=== PATIENT | male | born 1955 | race Caucasian/White ===

== ENCOUNTER 2024-07-27 13:59 | Inpatient (IN) | payer MEDICARE ==
[2024-07-27 14:32] LABS: VBG PH 7.37 (7.31-7.41)
[2024-07-27 14:39] LABS: Appearance,Urine Clear (Clear); Bacteria,Urine Occasional /hpf; Bilirubin,Urine 1+ (Negative); Blood,Urine Small (Negative); Color,Urine Orange; Glucose,Urine (UA) Negative (Negative); Hyaline Casts,Urine 13 /lpf (0-2); Ketones,Urine Trace (Negative); Leukocyte Esterase,Urine Negative (Negative); Mucus,Urine Rare /hpf; Nitrite,Urine Negative (Negative); Protein,Urine 1+ (Negative); RBC,Urine 7 /hpf (0-5); Specific Gravity,Urine 1.018 (1.001-1.035); WBC,Urine <1 /hpf (0-5)
[2024-07-27 14:41] LABS: Amphetamine Screen,Urine Not Detected (NotDetected); Barbiturate Screen,Urine Not Detected (NotDetected); Benzodiazepines Screen,Urine Not Detected (NotDetected); Cocaine Screen,Urine Not Detected (NotDetected); Methadone Screen, Urine Not Detected (NotDetected); Opiate Screen,Urine Not Detected (NotDetected); Oxycodone Screen, Urine Not Detected (NotDetected); Phencyclidine Screen,Urine Not Detected (NotDetected); Tricyclic Antidepressant,Urine Not Detected (NotDetected); Urn Cannabinoid Scrn Not Detected (NotDetected)
[2024-07-27 14:43] LABS: AST 353 U/L (17-59); African American GFR (CKD) 14 (>60 ml/min/1.73 sqM); Albumin 3.4 g/dL (3.5-5.0); Alcohol <10 mg/dL; Alkaline Phosphatase 92 U/L (38-126); Anion Gap 21 mmol/L; Calcium 9.1 mg/dL (8.4-10.2); Carbon Dioxide 25 mmol/L (22-30); Chloride 93 mmol/L (98-107); Glucose 103 mg/dL (74-99); Non-African American GFR(CKD) 12 (>60 ml/min/1.73 sqM); Potassium 3.8 mmol/L (3.5-5.1); Sodium 139 mmol/L (137-145); Total Bilirubin 9.8 mg/dL (0.2-1.3); Total Protein 5.7 g/dL (6.3-8.2)
[2024-07-27 14:49] LABS: ALT 162 U/L (4-49)
[2024-07-27 14:58] LABS: Lactic Acid, Venous 8.7 mmol/L (0.7-2.0)
[2024-07-27 14:59] LABS: Blood Urea Nitrogen 104 mg/dL (9-20); Creatine Kinase 2243 U/L (55-170)
--- NOTE | 2024-07-27 14:59 | XR ---
EXAMINATION TYPE: XR chest 2V DATE OF EXAM: 07/27/2024 2:46 PM CLINICAL INDICATION: Male, 69 years old with history of altered mental status; PHH COMPARISON: None TECHNIQUE: XR chest 2V Frontal view of the chest. FINDINGS: Lungs/Pleura: No evidence of focal consolidation or pneumothorax. Blunting of the costophrenic angles is present. Pulmonary vascularity: Pulmonary vascular congestion. Heart/mediastinum: Cardiomediastinal silhouette is enlarged. Musculoskeletal: No acute osseous pathology. Other findings: None IMPRESSION: Cardiomegaly, pulmonary vascular congestion and bilateral pleural effusions. Correlate with BNP for c ongestive heart failure. [facility], , 07/27/2024 2:57 PM
[2024-07-27 15:00] LABS: Partial Thromboplastin Time 37.2 sec (22.0-30.0); Prothrombin Time 113.8 sec (10.0-12.5)
--- NOTE | 2024-07-27 15:02 | CT ---
EXAMINATION TYPE: CT brain cspine wo con CT DLP: 1736.2 mGycm, Automated exposure control for dose reduction was used. DATE OF EXAM: 07/27/2024 2:46 PM COMPARISON: None. CLINICAL INDICATION: Male, 69 years old with history of ams; AMS. Found face down in his his house un known for how long, he hasn't been check on in 2wks. TECHNIQUE: Brain: Multiple axial CT images of the brain were obtained without IV contrast. Cspine: Axial CT images from the skull base to the inferior aspect of T2 we obtained without intraven ous contrast. Coronal and sagittal reformatted images were also reviewed. . FINDINGS: Brain: Extra-axial spaces: No abnormal extra-axial fluid collections. Ventricular system: Within normal limits Cerebral parenchyma: No acute intraparenchymal hemorrhage or mass effect. The zuluaga-white junction is well differentiated. Cerebellum: Unremarkable. Mass effect: No evidence of midline shift. Intracranial vasculature: unremarkable Soft tissues: Normal. Calvarium/osseous structures: No depressed skull fracture. Paranasal sinuses and mastoid air cells: Mild scattered mucosal thickening and or secretions. Visualized orbits: Orbital contents are intact. Cervical spine: Fracture: None. Osseous structures: Multilevel degenerative disc disease changes with endplate spurring and disc oste ophyte complex's. Vertebral alignment: Within normal limits. Spinal canal/Neural Foramina: No evidence of significant spinal canal narrowing. No evidence for sign ificant neural foraminal stenosis. Neck soft tissues: Prevertebral soft tissues are within normal limits. Other: The airway is patent. Pleural effusions bilaterally. Anasarca of the soft tissues. IMPRESSION: 1. No acute intracranial process. 2. Nonspecific white matter changes, likely secondary to chronic small vessel ischemic disease. 3. No evidence of cervical spine fracture. 4. Mild to moderate multilevel degenerative disc disease. 5. Evidence of congestive heart failure with anasarca, pulmonary vascular congestion and bilateral p leural effusions. [facility], , 07/27/2024 2:59 PM
[2024-07-27 15:08] LABS: Glucose,Whole Blood 96 mg/dL (70-110)
--- NOTE | 2024-07-27 15:10 | ED ---
Altered Mental Status HPI <LanetteBoone - Last Filed: 07/27/24 20:47> - General Source: EMS Mode of arrival: EMS <Belen Benson - Last Filed: 07/27/24 23:28> - General Chief Complaint: Altered Mental Status Time Seen by Provider: 07/27/24 14:10 - History of Present Illness Initial Comments: 69-year-old male presents emergency department after he was found down at home. His landlord has not seen him in 2 weeks and his neighbor has not seen him in 1 week. When EMS arrived to the house they found him in his bedroom prone on the ground. It appeared that the patient had been there for a significant period of time. Patient is anasarcic. They state that he had some type of food burning on the stove. Patient has very nonsensical responses to questioning. They have no information regarding his medical history. Patient hypoxic When speaking with the patient's sister she reports that he has prostate cancer which is untreated. Also has a history of alcoholism and she is concerned that most recently he may have return to his drinking habits. Patient has 1 son, Cade (Belen Benson) - Related Data Home Medications Medication Instructions Recorded Confirmed Unable To Assess [Unable to Assess] 07/27/24 07/27/24 Allergies Allergy/AdvReac Type Severity Reaction Status Date / Time Unable to Assess Allergy Verified 07/27/24 14:08 Review of Systems ROS Other: All systems not noted in ROS Statement are negative. <Boone Gama - Last Filed: 07/27/24 20:47> ROS Other: All systems not noted in ROS Statement are negative. <Belen Benson - Last Filed: 07/27/24 23:28> ROS Statement: Those systems with pertinent positive or pertinent negative responses have been documented in the HPI. Past Medical History Additional Past Medical History / Comment(s): unable to obtain medical history. Additional Past Surgical History / Comment(s): unable to obtain surgical history Smoking Status: Unknown if ever smoked <Belen Benson - Last Filed: 07/27/24 23:28> General Exam Limitations: altered mental status, physical limitation General appearance: alert, lethargic Head exam: Present: atraumatic, normocephalic, normal inspection Eye exam: Present: scleral icterus ENT exam: Present: mucous membranes dry Neck exam: Present: normal inspection. Absent: tenderness, meningismus, lymphadenopathy Respiratory exam: Present: rales Cardiovascular Exam: Present: tachycardia, irregular rhythm GI/Abdominal exam: Present: distended Extremities exam: Present: other (Anasarcic) Back exam: Present: normal inspection Neurological exam: Present: alert Psychiatric exam: Present: flat affect Skin exam: Present: mottled <Belen Benson - Last Filed: 07/27/24 23:28> Course <Boone Gama - Last Filed: 07/27/24 20:47> Vital Signs 07/27/24 07/27/24 07/27/24 14:09 14:26 15:01 Temperature 96.0 F L Pulse Rate 154 H 149 H Respiratory 18 12 Rate Blood Pressure 130/92 113/68 O2 Sat by Pulse 84 L 84 L Oximetry 07/27/24 07/27/24 07/27/24 15:30 15:45 16:00 Temperature Pulse Rate 168 H 152 H 149 H Respiratory 17 Rate Blood Pressure 112/79 119/96 124/111 O2 Sat by Pulse Oximetry 07/27/24 07/27/24 07/27/24 16:15 16:30 16:45 Temperature Pulse Rate 147 H Respiratory Rate Blood Pressure 113/94 113/94 62/31 O2 Sat by Pulse 93 L Oximetry 07/27/24 07/27/24 07/27/24 17:15 17:30 17:45 Temperature Pulse Rate Respiratory Rate Blood Pressure 115/89 105/88 111/73 O2 Sat by Pulse Oximetry 07/27/24 07/27/24 07/27/24 18:00 18:05 18:15 Temperature 96.0 F L Pulse Rate 137 H 138 H Respiratory 17 16 Rate Blood Pressure 76/59 71/24 101/89 O2 Sat by Pulse Oximetry 07/27/24 07/27/24 07/27/24 18:18 18:21 18:30 Temperature Pulse Rate 128 H 144 H 144 H Respiratory 22 22 15 Rate Blood Pressure 99/73 105/81 97/79 O2 Sat by Pulse 97 97 Oximetry 07/27/24 07/27/24 07/27/24 18:45 19:00 19:41 Temperature Pulse Rate 137 H 151 H 158 H Respiratory 15 15 16 Rate Blood Pressure 110/80 107/73 94/64 O2 Sat by Pulse 95 96 Oximetry 07/27/24 07/27/24 07/27/24 20:10 20:15 20:16 Temperature 97.3 F L 97.3 F L Pulse Rate 126 H 122 H 135 H Respiratory 16 18 18 Rate Blood Pressure 105/80 88/74 102/72 O2 Sat by Pulse Oximetry 07/27/24 07/27/24 07/27/24 20:23 20:35 21:28 Temperature 97.5 F L 97.0 F L Pulse Rate 125 H 135 H Respiratory 16 18 Rate Blood Pressure 97/62 96/81 O2 Sat by Pulse 93 L 92 L Oximetry 07/27/24 07/27/24 07/27/24 22:10 22:33 22:56 Temperature 97.0 F L 98.0 F 97.5 F L Pulse Rate 140 H 124 H 137 H Respiratory 18 16 18 Rate Blood Pressure 103/84 84/67 91/54 O2 Sat by Pulse 92 L Oximetry - Reevaluation(s) Reevaluation #1: 07/27/24 16:15 Patient was endorsed to me by ED physician Dr. Benson (secondary to shift change) with the patient's noncontrast CT chest/abdomen/pelvis still pending. 07/27/24 17:00 Case, H&P, test results and ED management thus far were discussed with Dr. Hill (receptionist scheduler). He asks to reverse the patient's coagulopathy with vitamin K 10 mg IVPB and IV FFP. He also asks to hydrate the patient with a liter bolus of normal saline, then repeat a lactic acid level. He also asks to start the patient on a diltiazem IV drip for rate control of his atrial fibrillation. He asks to call him back once all of these measures have been taken with a status update. He has no further recommendations at this time. 07/27/24 18:03 Patient's brother and [id number] are now in the ED at bedside with the patient. I have updated them on the patient's test results and critical status and have answered all of their questions at this time. 07/27/24 20:30 Patient remains in atrial fibrillation on the hospital monitor, and his heart rate is currently in the 130s. Patient has been started on diltiazem IV drip. Patient's repeat lactate level has improved somewhat and is now 6.2. Repeat lab results and status update were discussed with Dr. Hill (receptionist scheduler) per his request. He agrees with ICU admission at this time. 07/27/24 20:45 Case, H&P, test results, ED management and my discussions with Dr. Hill as above were discussed with STATIONARY ENGINEER Cici Post. She accepts ICU admission. She has no further recommendations at this time. 07/27/24 20:48 Family has been updated about the patient's test results and my discussions as above. They all agree with hospital ICU admission at this time. (Boone Gama) Medical Decision Making - Lab Data Result diagrams: 07/27/24 14:19 07/27/24 19:07 <Boone Gama - Last Filed: 07/27/24 20:47> - Lab Data Result diagrams: 07/27/24 14:19 07/27/24 19:07 <Belen Benson - Last Filed: 07/27/24 23:28> - Medical Decision Making Was patient admitted / discharged? Hospital course, mention meds given and route, prescriptions, significant lab abnormalities, going to OR and other pertinent info. @ -Patient has been treated with IV fluids, IV vitamin K, FFP and started on an IV diltiazem drip in the ED (per Dr. Hill's (receptionist scheduler's) request). Repeat evaluation and labs were discussed with Dr. Hill. He agrees with ICU admission at this time. STATIONARY ENGINEER Cici Post has accepted hospital admission. Patient remains alert and breathing comfortably. Patient's family is aware of the patient's test results and they will agree with hospital ICU admission at this time. Undiagnosed new problem with uncertain prognosis? @ -No Drug Therapy requiring intensive monitoring for toxicity (Heparin, Nitro, Insulin, Cardizem)? @ -No Were any procedures done? @ -No Diagnosis/symptom? @ -Altered mental status, renal insufficiency, liver failure, coagulopathy, multisystem organ failure, fluid overload, CHF, pleural effusions, atrial fibrillation with RVR, rhabdomyolysis Acute, or Chronic, or Acute on Chronic? @ -Default Uncomplicated (without systemic symptoms) or Complicated (systemic symptoms)? @ -Default Side effects of treatment? @ -No Exacerbation, Progression, or Severe Exacerbation? @ -No Poses a threat to life or bodily function? How? (Chest pain, USA, DC, pneumonia, PE, COPD, DKA, ARF, appy, cholecystitis, CVA, Diverticulitis, Homicidal, Suicidal, threat to staff... and all critical care pts) @ -Yes, potentially. (Lanette,Boone) Was pt. sent in by a medical professional or institution (, PA, STATIONARY ENGINEER, urgent care, hospital, or alf...) When possible be specific @ -No Did you speak to anyone other than the patient for history (EMS, parent, family, police, friend...)? What history was obtained from this source @ -Spoke with EMS for history. Also spoke with the sister Did you review nursing and triage notes (agree or disagree)? Why? @ -I reviewed and agree with nursing and triage notes Were old charts reviewed (outside hosp., previous admission, EMS record, old EKG, old radiological studies, urgent care reports/EKG's, alf records)? Report findings @ -No old charts were reviewed Differential Diagnosis (chest pain, altered mental status, abdominal pain women, abdominal pain men, vaginal bleeding, weakness, fever, dyspnea, syncope, headache, dizziness, GI bleed, back pain, seizure, CVA, palpatations, mental health, musculoskeletal)? @ -Differential Altered Mental Status: Hypoglycemia, DKA, hypercapnia, ETOH, overdose, CO poisoning, trauma, myxedema coma, HTN encephalopathy, infection, encephalitis, psychosis, intercranial hemorrhage, hepatic encephalopathy, meningitis, CVA, this is not meant to be an all-inclusive list EKG interpreted by me (3pts min.). @ -Yes and demonstrates A-fib with a rate of 146. QRS 114. QTc of 424. No acute ST segment elevations or depressions X-rays interpreted by me (1pt min.). @ -Yes and demonstrates congestive heart failure CT interpreted by me (1pt min.). @ -Pending at this time U/S interpreted by me (1pt. min.). @ -None done What testing was considered but not performed or refused? (CT, X-rays, U/S, labs)? Why? @ -None What meds were considered but not given or refused? Why? @ -None Did you discuss the management of the patient with other professionals (professionals i.e. Dr., PA, STATIONARY ENGINEER, lab, RT, psych nurse, social work specialist, bell ringer, teacher, airplane first officer, top case assembler)? Give summary @ -Spoke with Dr. Gama will follow-up on the patient's CT report Was smoking cessation discussed for >3mins.? @ -No Was critical care preformed (if so, how long)? @ -Yes, 40 minutes for multiorgan failure Were there social determinants of health that impacted care today? How? ( Homelessness, low income, unemployed, alcoholism, drug addiction, transportation, low edu. Level, literacy, decrease access to med. care, usp, rehab)? @ -No Was there de-escalation of care discussed even if they declined (Discuss DNR or withdrawal of care, Hospice)? DNR status @ -No What co-morbidities impacted this encounter? (DM, HTN, Smoking, COPD, CAD, Cancer, CVA, ARF, Chemo, Hep., AIDS, mental health diagnosis, sleep apnea, morbid obesity)? @ -Alcohol abuse Was patient admitted / discharged? Hospital course, mention meds given and route, prescriptions, significant lab abnormalities, going to OR and other pertinent info. @ -Upon arrival patient seen and evaluated in trauma 2. Thorough history and physical exam was performed. Patient cannot provide much history and therefore I did call family members. IV was established and laboratory studies are conducted. Chest x-ray was performed which is followed by a CT of the chest, abdomen and pelvis. Patient found to be significantly ill with liver, heart and kidney failure. Awaiting CT results at this time. He will be [facility] out [facility]ama [facility] - Lab Data Lab Results 07/27/24 07/27/24 07/27/24 Range/Units 14:19 14:19 14:19 WBC 9.6 (3.8-10.6) k/uL RBC 4.21 L (4.30-5.90) m/uL Hgb 13.1 (13.0-17.5) gm/dL Hct 40.5 (39.0-53.0) % MCV 96.2 (80.0-100.0) fL MCH 31.1 (25.0-35.0) pg MCHC 32.4 (31.0-37.0) g/dL RDW 14.9 (11.5-15.5) % Plt Count 119 L (150-450) k/uL MPV 13.1 Neutrophils % (Manual) 84 % Lymphocytes % (Manual) 12 % Monocytes % (Manual) 4 % Neutrophils # (Manual) 8.06 H (1.3-7.7) k/uL Lymphocytes # (Manual) 1.15 (1.0-4.8) k/uL Monocytes # (Manual) 0.38 (0-1.0) k/uL Nucleated RBCs 0 (0-0) /100 WBC Manual Slide Review Performed Large Platelets Present Hypochromasia Moderate Poikilocytosis (manual Present PT 113.8 H (10.0-12.5) sec INR >10.0 H* (<1.2) APTT 37.2 H (22.0-30.0) sec VBG pH (7.31-7.41) VBG pCO2 (37-51) mmHg VBG HCO3 (24-28) mmol/L Carbon Monoxide, Quant (<10.0) % Sodium (137-145) mmol/L Potassium (3.5-5.1) mmol/L Chloride (98-107) mmol/L Carbon Dioxide (22-30) mmol/L Anion Gap mmol/L BUN (9-20) mg/dL Creatinine (0.66-1.25) mg/dL Est GFR (CKD-EPI)AfAm (>60 ml/min/1.73 sqM) Est GFR (CKD-EPI)NonAf (>60 ml/min/1.73 sqM) Glucose (74-99) mg/dL POC Glucose (mg/dL) (70-110) mg/dL POC Glu Spool Sander ID Lactic Ac Sepsis Rflx Plasma Lactic Acid Jose (0.7-2.0) mmol/L Calcium (8.4-10.2) mg/dL Total Bilirubin (0.2-1.3) mg/dL AST (17-59) U/L ALT (4-49) U/L Alkaline Phosphatase (38-126) U/L Ammonia (<30) umol/L Creatine Kinase (55-170) U/L Troponin I (0.000-0.034) ng/mL NT-Pro-B Natriuret Pep pg/mL Total Protein (6.3-8.2) g/dL Albumin (3.5-5.0) g/dL TSH (0.465-4.680) mIU/L Urine Color [place] Urine Appearance Clear (Clear) Urine pH 5.0 (5.0-8.0) Ur Specific [place] 1.018 (1.001-1.035) Urine Protein 1+ H (Negative) Urine Glucose (UA) Negative (Negative) Urine Ketones Trace H (Negative) Urine Blood Small H (Negative) Urine Nitrite Negative (Negative) Urine Bilirubin 1+ H (Negative) Urine Urobilinogen 3.0 (<2.0) mg/dL Ur Leukocyte Esterase Negative (Negative) Urine RBC 7 H (0-5) /hpf Urine WBC <1 (0-5) /hpf Urine Bacteria Occasional H (None) /hpf Hyaline Casts 13 H (0-2) /lpf Urine Mucus Rare H (None) /hpf Urine Opiates Screen Not Detected (NotDetected) Ur Oxycodone Screen Not Detected (NotDetected) Urine Methadone Screen Not Detected (NotDetected) Ur Barbiturates Screen Not Detected (NotDetected) U Tricyclic Antidepress Not Detected (NotDetected) Ur Phencyclidine Scrn Not Detected (NotDetected) Ur Amphetamines Screen Not Detected (NotDetected) U Methamphetamines Scrn Not Detected (NotDetected) U Benzodiazepines Scrn Not Detected (NotDetected) Urine Cocaine Screen Not Detected (NotDetected) U Marijuana (THC) Screen Not Detected (NotDetected) Serum Alcohol mg/dL Blood Type Blood Type Confirm Blood Type Recheck Bld Type Recheck Status Antibody Screen Transfuse Plasma Spec Expiration Date 07/27/24 07/27/24 07/27/24 Range/Units 14:19 14:19 14:19 WBC (3.8-10.6) k/uL RBC (4.30-5.90) m/uL Hgb (13.0-17.5) gm/dL Hct (39.0-53.0) % MCV (80.0-100.0) fL MCH (25.0-35.0) pg MCHC (31.0-37.0) g/dL RDW (11.5-15.5) % Plt Count (150-450) k/uL MPV Neutrophils % (Manual) % Lymphocytes % (Manual) % Monocytes % (Manual) % Neutrophils # (Manual) (1.3-7.7) k/uL Lymphocytes # (Manual) (1.0-4.8) k/uL Monocytes # (Manual) (0-1.0) k/uL Nucleated RBCs (0-0) /100 WBC Manual Slide Review Large Platelets Hypochromasia Poikilocytosis (manual PT (10.0-12.5) sec INR (<1.2) APTT (22.0-30.0) sec VBG pH (7.31-7.41) VBG pCO2 (37-51) mmHg VBG HCO3 (24-28) mmol/L Carbon Monoxide, Quant (<10.0) % Sodium 139 (137-145) mmol/L Potassium 3.8 (3.5-5.1) mmol/L Chloride 93 L (98-107) mmol/L Carbon Dioxide 25 (22-30) mmol/L Anion Gap 21 mmol/L BUN 104 H* (9-20) mg/dL Creatinine 4.62 H (0.66-1.25) mg/dL Est GFR (CKD-EPI)AfAm 14 (>60 ml/min/1.73 sqM) Est GFR (CKD-EPI)NonAf 12 (>60 ml/min/1.73 sqM) Glucose 103 H (74-99) mg/dL POC Glucose (mg/dL) (70-110) mg/dL POC Glu Spool Sander ID Lactic Ac Sepsis Rflx Plasma Lactic Acid Jose 8.7 H* (0.7-2.0) mmol/L Calcium 9.1 (8.4-10.2) mg/dL Total Bilirubin 9.8 H (0.2-1.3) mg/dL AST 353 H (17-59) U/L ALT 162 H (4-49) U/L Alkaline Phosphatase 92 (38-126) U/L Ammonia <9 (<30) umol/L Creatine Kinase 2243 H* (55-170) U/L Troponin I 0.759 H* (0.000-0.034) ng/mL NT-Pro-B Natriuret Pep 07465 pg/mL Total Protein 5.7 L (6.3-8.2) g/dL Albumin 3.4 L (3.5-5.0) g/dL TSH 4.220 (0.465-4.680) mIU/L Urine Color Urine Appearance (Clear) Urine pH (5.0-8.0) Ur Specific [place] (1.001-1.035) Urine Protein (Negative) Urine Glucose (UA) (Negative) Urine Ketones (Negative) Urine Blood (Negative) Urine Nitrite (Negative) Urine Bilirubin (Negative) Urine Urobilinogen (<2.0) mg/dL Ur Leukocyte Esterase (Negative) Urine RBC (0-5) /hpf Urine WBC (0-5) /hpf Urine Bacteria (None) /hpf Hyaline Casts (0-2) /lpf Urine Mucus (None) /hpf Urine Opiates Screen (NotDetected) Ur Oxycodone Screen (NotDetected) Urine Methadone Screen (NotDetected) Ur Barbiturates Screen (NotDetected) U Tricyclic Antidepress (NotDetected) Ur Phencyclidine Scrn (NotDetected) Ur Amphetamines Screen (NotDetected) U Methamphetamines Scrn (NotDetected) U Benzodiazepines Scrn (NotDetected) Urine Cocaine Screen (NotDetected) U Marijuana (THC) Screen (NotDetected) Serum Alcohol <10 mg/dL Blood Type Blood Type Confirm Blood Type Recheck Bld Type Recheck Status Antibody Screen Transfuse Plasma Spec Expiration Date 07/27/24 07/27/24 07/27/24 Range/Units 14:19 14:19 14:59 WBC (3.8-10.6) k/uL RBC (4.30-5.90) m/uL Hgb (13.0-17.5) gm/dL Hct (39.0-53.0) % MCV (80.0-100.0) fL MCH (25.0-35.0) pg MCHC (31.0-37.0) g/dL RDW (11.5-15.5) % Plt Count (150-450) k/uL MPV Neutrophils % (Manual) % Lymphocytes % (Manual) % Monocytes % (Manual) % Neutrophils # (Manual) (1.3-7.7) k/uL Lymphocytes # (Manual) (1.0-4.8) k/uL Monocytes # (Manual) (0-1.0) k/uL Nucleated RBCs (0-0) /100 WBC Manual Slide Review Large Platelets Hypochromasia Poikilocytosis (manual PT (10.0-12.5) sec INR (<1.2) APTT (22.0-30.0) sec VBG pH 7.37 (7.31-7.41) VBG pCO2 43 (37-51) mmHg VBG HCO3 24 (24-28) mmol/L Carbon Monoxide, Quant 2.6 (<10.0) % Sodium (137-145) mmol/L Potassium (3.5-5.1) mmol/L Chloride (98-107) mmol/L Carbon Dioxide (22-30) mmol/L Anion Gap mmol/L BUN (9-20) mg/dL Creatinine (0.66-1.25) mg/dL Est GFR (CKD-EPI)AfAm (>60 ml/min/1.73 sqM) Est GFR (CKD-EPI)NonAf (>60 ml/min/1.73 sqM) Glucose (74-99) mg/dL POC Glucose (mg/dL) (70-110) mg/dL POC Glu Spool Sander ID Lactic Ac Sepsis Rflx Y Plasma Lactic Acid Jose (0.7-2.0) mmol/L Calcium (8.4-10.2) mg/dL Total Bilirubin (0.2-1.3) mg/dL AST (17-59) U/L ALT (4-49) U/L Alkaline Phosphatase (38-126) U/L Ammonia (<30) umol/L Creatine Kinase (55-170) U/L Troponin I (0.000-0.034) ng/mL NT-Pro-B Natriuret Pep pg/mL Total Protein (6.3-8.2) g/dL Albumin (3.5-5.0) g/dL TSH (0.465-4.680) mIU/L Urine Color Urine Appearance (Clear) Urine pH (5.0-8.0) Ur Specific [place] (1.001-1.035) Urine Protein (Negative) Urine Glucose (UA) (Negative) Urine Ketones (Negative) Urine Blood (Negative) Urine Nitrite (Negative) Urine Bilirubin (Negative) Urine Urobilinogen (<2.0) mg/dL Ur Leukocyte Esterase (Negative) Urine RBC (0-5) /hpf Urine WBC (0-5) /hpf Urine Bacteria (None) /hpf Hyaline Casts (0-2) /lpf Urine Mucus (None) /hpf Urine Opiates Screen (NotDetected) Ur Oxycodone Screen (NotDetected) Urine Methadone Screen (NotDetected) Ur Barbiturates Screen (NotDetected) U Tricyclic Antidepress (NotDetected) Ur Phencyclidine Scrn (NotDetected) Ur Amphetamines Screen (NotDetected) U Methamphetamines Scrn (NotDetected) U Benzodiazepines Scrn (NotDetected) Urine Cocaine Screen (NotDetected) U Marijuana (THC) Screen (NotDetected) Serum Alcohol mg/dL Blood Type Blood Type Confirm Blood Type Recheck Bld Type Recheck Status Antibody Screen Transfuse Plasma Spec Expiration Date 07/27/24 07/27/24 07/27/24 Range/Units 15:00 17:07 17:50 WBC (3.8-10.6) k/uL RBC (4.30-5.90) m/uL Hgb (13.0-17.5) gm/dL Hct (39.0-53.0) % MCV (80.0-100.0) fL MCH (25.0-35.0) pg MCHC (31.0-37.0) g/dL RDW (11.5-15.5) % Plt Count (150-450) k/uL MPV Neutrophils % (Manual) % Lymphocytes % (Manual) % Monocytes % (Manual) % Neutrophils # (Manual) (1.3-7.7) k/uL Lymphocytes # (Manual) (1.0-4.8) k/uL Monocytes # (Manual) (0-1.0) k/uL Nucleated RBCs (0-0) /100 WBC Manual Slide Review Large Platelets Hypochromasia Poikilocytosis (manual PT (10.0-12.5) sec INR (<1.2) APTT (22.0-30.0) sec VBG pH (7.31-7.41) VBG pCO2 (37-51) mmHg VBG HCO3 (24-28) mmol/L Carbon Monoxide, Quant (<10.0) % Sodium (137-145) mmol/L Potassium (3.5-5.1) mmol/L Chloride (98-107) mmol/L Carbon Dioxide (22-30) mmol/L Anion Gap mmol/L BUN (9-20) mg/dL Creatinine (0.66-1.25) mg/dL Est GFR (CKD-EPI)AfAm (>60 ml/min/1.73 sqM) Est GFR (CKD-EPI)NonAf (>60 ml/min/1.73 sqM) Glucose (74-99) mg/dL POC Glucose (mg/dL) 96 (70-110) mg/dL POC Glu Spool Sander ID Fei Valero Lactic Ac Sepsis Rflx Plasma Lactic Acid Jose (0.7-2.0) mmol/L Calcium (8.4-10.2) mg/dL Total Bilirubin (0.2-1.3) mg/dL AST (17-59) U/L ALT (4-49) U/L Alkaline Phosphatase (38-126) U/L Ammonia (<30) umol/L Creatine Kinase (55-170) U/L Troponin I (0.000-0.034) ng/mL NT-Pro-B Natriuret Pep pg/mL Total Protein (6.3-8.2) g/dL Albumin (3.5-5.0) g/dL TSH (0.465-4.680) mIU/L Urine Color Urine Appearance (Clear) Urine pH (5.0-8.0) Ur Specific [place] (1.001-1.035) Urine Protein (Negative) Urine Glucose (UA) (Negative) Urine Ketones (Negative) Urine Blood (Negative) Urine Nitrite (Negative) Urine Bilirubin (Negative) Urine Urobilinogen (<2.0) mg/dL Ur Leukocyte Esterase (Negative) Urine RBC (0-5) /hpf Urine WBC (0-5) /hpf Urine Bacteria (None) /hpf Hyaline Casts (0-2) /lpf Urine Mucus (None) /hpf Urine Opiates Screen (NotDetected) Ur Oxycodone Screen (NotDetected) Urine Methadone Screen (NotDetected) Ur Barbiturates Screen (NotDetected) U Tricyclic Antidepress (NotDetected) Ur Phencyclidine Scrn (NotDetected) Ur Amphetamines Screen (NotDetected) U Methamphetamines Scrn (NotDetected) U Benzodiazepines Scrn (NotDetected) Urine Cocaine Screen (NotDetected) U Marijuana (THC) Screen (NotDetected) Serum Alcohol mg/dL Blood Type O Negative Blood Type Confirm Blood Type Recheck No Previous Record Bld Type Recheck Status CABO Indicated Antibody Screen NEGATIVE Transfuse Plasma 07/27/24 Spec Expiration Date 07/30/2024 - 234907/27/24 07/27/24 07/27/24 Range/Units 17:55 19:07 19:07 WBC (3.8-10.6) k/uL RBC (4.30-5.90) m/uL Hgb (13.0-17.5) gm/dL Hct (39.0-53.0) % MCV (80.0-100.0) fL MCH (25.0-35.0) pg MCHC (31.0-37.0) g/dL RDW (11.5-15.5) % Plt Count (150-450) k/uL MPV Neutrophils % (Manual) % Lymphocytes % (Manual) % Monocytes % (Manual) % Neutrophils # (Manual) (1.3-7.7) k/uL Lymphocytes # (Manual) (1.0-4.8) k/uL Monocytes # (Manual) (0-1.0) k/uL Nucleated RBCs (0-0) /100 WBC Manual Slide Review Large Platelets Hypochromasia Poikilocytosis (manual PT 82.2 H (10.0-12.5) sec INR 8.3 H* (<1.2) APTT 41.3 H (22.0-30.0) sec VBG pH (7.31-7.41) VBG pCO2 (37-51) mmHg VBG HCO3 (24-28) mmol/L Carbon Monoxide, Quant (<10.0) % Sodium (137-145) mmol/L Potassium (3.5-5.1) mmol/L Chloride (98-107) mmol/L Carbon Dioxide (22-30) mmol/L Anion Gap mmol/L BUN (9-20) mg/dL Creatinine (0.66-1.25) mg/dL Est GFR (CKD-EPI)AfAm (>60 ml/min/1.73 sqM) Est GFR (CKD-EPI)NonAf (>60 ml/min/1.73 sqM) Glucose (74-99) mg/dL POC Glucose (mg/dL) (70-110) mg/dL POC Glu Spool Sander ID Lactic Ac Sepsis Rflx Plasma Lactic Acid Jose 6.2 H* (0.7-2.0) mmol/L Calcium (8.4-10.2) mg/dL Total Bilirubin (0.2-1.3) mg/dL AST (17-59) U/L ALT (4-49) U/L Alkaline Phosphatase (38-126) U/L Ammonia (<30) umol/L Creatine Kinase (55-170) U/L Troponin I (0.000-0.034) ng/mL NT-Pro-B Natriuret Pep pg/mL Total Protein (6.3-8.2) g/dL Albumin (3.5-5.0) g/dL TSH (0.465-4.680) mIU/L Urine Color Urine Appearance (Clear) Urine pH (5.0-8.0) Ur Specific [place] (1.001-1.035) Urine Protein (Negative) Urine Glucose (UA) (Negative) Urine Ketones (Negative) Urine Blood (Negative) Urine Nitrite (Negative) Urine Bilirubin (Negative) Urine Urobilinogen (<2.0) mg/dL Ur Leukocyte Esterase (Negative) Urine RBC (0-5) /hpf Urine WBC (0-5) /hpf Urine Bacteria (None) /hpf Hyaline Casts (0-2) /lpf Urine Mucus (None) /hpf Urine Opiates Screen (NotDetected) Ur Oxycodone Screen (NotDetected) Urine Methadone Screen (NotDetected) Ur Barbiturates Screen (NotDetected) U Tricyclic Antidepress (NotDetected) Ur Phencyclidine Scrn (NotDetected) Ur Amphetamines Screen (NotDetected) U Methamphetamines Scrn (NotDetected) U Benzodiazepines Scrn (NotDetected) Urine Cocaine Screen (NotDetected) U Marijuana (THC) Screen (NotDetected) Serum Alcohol mg/dL Blood Type Blood Type Confirm O Negative Blood Type Recheck Bld Type Recheck Status Antibody Screen Transfuse Plasma Spec Expiration Date 07/27/24 07/27/24 07/27/24 Range/Units 19:07 19:07 19:31 WBC (3.8-10.6) k/uL RBC (4.30-5.90) m/uL Hgb (13.0-17.5) gm/dL Hct (39.0-53.0) % MCV (80.0-100.0) fL MCH (25.0-35.0) pg MCHC (31.0-37.0) g/dL RDW (11.5-15.5) % Plt Count (150-450) k/uL MPV Neutrophils % (Manual) % Lymphocytes % (Manual) % Monocytes % (Manual) % Neutrophils # (Manual) (1.3-7.7) k/uL Lymphocytes # (Manual) (1.0-4.8) k/uL Monocytes # (Manual) (0-1.0) k/uL Nucleated RBCs (0-0) /100 WBC Manual Slide Review Large Platelets Hypochromasia Poikilocytosis (manual PT (10.0-12.5) sec INR (<1.2) APTT (22.0-30.0) sec VBG pH (7.31-7.41) VBG pCO2 (37-51) mmHg VBG HCO3 (24-28) mmol/L Carbon Monoxide, Quant (<10.0) % Sodium 140 (137-145) mmol/L Potassium 3.7 (3.5-5.1) mmol/L Chloride 96 L (98-107) mmol/L Carbon Dioxide 27 (22-30) mmol/L Anion Gap 17 mmol/L BUN 109 H* (9-20) mg/dL Creatinine 4.14 H (0.66-1.25) mg/dL Est GFR (CKD-EPI)AfAm 16 (>60 ml/min/1.73 sqM) Est GFR (CKD-EPI)NonAf 14 (>60 ml/min/1.73 sqM) Glucose 108 H (74-99) mg/dL POC Glucose (mg/dL) (70-110) mg/dL POC Glu Spool Sander ID Lactic Ac Sepsis Rflx Y Plasma Lactic Acid Jose (0.7-2.0) mmol/L Calcium 8.6 (8.4-10.2) mg/dL Total Bilirubin 9.1 H (0.2-1.3) mg/dL AST 359 H (17-59) U/L ALT 151 H (4-49) U/L Alkaline Phosphatase 81 (38-126) U/L Ammonia (<30) umol/L Creatine Kinase (55-170) U/L Troponin I 0.967 H* (0.000-0.034) ng/mL NT-Pro-B Natriuret Pep pg/mL Total Protein 5.6 L (6.3-8.2) g/dL Albumin 3.2 L (3.5-5.0) g/dL TSH (0.465-4.680) mIU/L Urine Color Urine Appearance (Clear) Urine pH (5.0-8.0) Ur Specific [place] (1.001-1.035) Urine Protein (Negative) Urine Glucose (UA) (Negative) Urine Ketones (Negative) Urine Blood (Negative) Urine Nitrite (Negative) Urine Bilirubin (Negative) Urine Urobilinogen (<2.0) mg/dL Ur Leukocyte Esterase (Negative) Urine RBC (0-5) /hpf Urine WBC (0-5) /hpf Urine Bacteria (None) /hpf Hyaline Casts (0-2) /lpf Urine Mucus (None) /hpf Urine Opiates Screen (NotDetected) Ur Oxycodone Screen (NotDetected) Urine Methadone Screen (NotDetected) Ur Barbiturates Screen (NotDetected) U Tricyclic Antidepress (NotDetected) Ur Phencyclidine Scrn (NotDetected) Ur Amphetamines Screen (NotDetected) U Methamphetamines Scrn (NotDetected) U Benzodiazepines Scrn (NotDetected) Urine Cocaine Screen (NotDetected) U Marijuana (THC) Screen (NotDetected) Serum Alcohol mg/dL Blood Type Blood Type Confirm Blood Type Recheck Bld Type Recheck Status Antibody Screen Transfuse Plasma Spec Expiration Date - Radiology Data Noncontrast CT brain/cervical spine: 1. No acute intracranial process. 2. Nonspecific white matter changes, likely secondary to chronic small vessel ischemic disease. 3. No evidence of cervical spine fracture 4. Mild to moderate multilevel degenerative disc disease. 5. Evidence of congestive heart failure with anasarca, pulmonary vascular congestion and bilateral pleural effusions. Noncontrast CT chest/abdomen/pelvis: 1. Cardiomegaly, anasarca, bilateral pleural effusions and pulmonary vascular congestion correlate for congestive heart failure. No evidence for acute thoracic or abdominal process. 2. Hepatic steatosis correlate for elevated liver labs secondary to heart failure. (Boone Gama) Critical Care Time Critical Care Time: Yes Total Critical Care Time: 75 <Boone Gama - Last Filed: 07/27/24 20:47> Disposition Is patient prescribed a controlled substance at d/c from ED?: No Time of Disposition: 20:42 <Boone Gama - Last Filed: 07/27/24 20:47> <Belen Benson - Last Filed: 07/27/24 23:28> Clinical Impression: Altered mental status, Fluid overload, Rhabdomyolysis, Liver failure, Coagulopathy, Elevated lactic acid level, Elevated troponin, Atrial fibrillation with RVR, CHF (congestive heart failure), Anasarca, Pleural effusion, Renal insufficiency Disposition: ADMITTED IP TO THIS HOSP Condition: Critical
[2024-07-27 15:14] LABS: NT-Pro-B-Type Natriuretic Pept 34000 pg/mL
[2024-07-27 15:15] LABS: INR >10.0 (<1.2)
[2024-07-27 15:18] LABS: HCT 40.5 % (39.0-53.0); HGB 13.1 gm/dL (13.0-17.5); Hypochromasia Moderate; MCH 31.1 pg (25.0-35.0); MCHC 32.4 g/dL (31.0-37.0); MCV 96.2 fL (80.0-100.0); Mean Platelet Volume 13.1; RBC 4.21 m/uL (4.30-5.90); RDW 14.9 % (11.5-15.5); WBC 9.6 k/uL (3.8-10.6)
[2024-07-27] MEDS: cefTRIAXone IN SWFI 1,000 MG/10 ML SYRINGE IVP STA (15:58)
[2024-07-27 15:59] LABS: Lymphocytes # (M) 1.15 k/uL (1.0-4.8); Monocytes # (M) 0.38 k/uL (0-1.0); Neutrophils # (M) 8.06 k/uL (1.3-7.7); Neutrophils % (M) 84 %; Nucleated Red Blood Cells 0 /100 WBC (0-0); Total Cells Counted 100
[2024-07-27 16:01] LABS: Platelet Count 119 k/uL (150-450); Poikilocytosis (M) Present
[2024-07-27 16:02] LABS: Large Platelets Present
--- NOTE | 2024-07-27 16:43 | CT ---
EXAMINATION TYPE: CT ChestAbdPelvis wo con CT DLP: 1325.8 mGycm, Automated exposure control for dose reduction was used. DATE OF EXAM: 07/27/2024 4:32 PM COMPARISON: None. CLINICAL INDICATION: Male, 69 years old with history of abnormal liver labs, kidney failure; PHH, Abn ormal liver labs, kidney failure Technique: CT ChestAbdPelvis wo con; Multiple axial images were obtained. Two-dimensional coronal and sagittal reconstructions were obtained. Contrast used: mL of , (None if empty) Oral contrast used: without Oral Contrast Findings: CHEST: LUNGS/ PLEURA: Small bilateral pleural effusions. Intralobular septal thickening. AIRWAY: Patent and unremarkable. HEART: The heart is moderately severely large in size. MEDIASTINUM: No gross evidence of adenopathy. VASCULATURE: No aortic aneurysm. MUSCULOSKELETAL: No acute osseous abnormalities. SOFT TISSUES/LYMPH NODES: Unremarkable. LOWER NECK: No significant findings. ABDOMEN: ABDOMEN LIVER: Diffusely hypoattenuating parenchyma. GALLBLADDER AND BILE DUCTS: Unremarkable. PANCREAS: Unremarkable. SPLEEN: Unremarkable. ADRENAL GLANDS: Unremarkable. KIDNEYS AND URETERS: No evidence of hydronephrosis or renal calculus. The ureters are unremarkable. PELVIS BLADDER: Nondistended with Pickens catheter in place. REPRODUCTIVE: Unremarkable. ABDOMEN & PELVIS STOMACH AND BOWEL: No evidence of bowel obstruction. PERITONEUM/RETROPERITONEUM: No evidence of pneumoperitoneum or free fluid. VASCULATURE: No evidence of aortic aneurysm. MUSCULOSKELETAL: No acute osseous abnormalities LYMPH NODES: No gross evidence for lymphadenopathy. SOFT TISSUE/ABDOMINAL WALL: Anasarca of the soft tissues. IMPRESSION: 1. Cardiomegaly, anasarca, bilateral pleural effusions and pulmonary vascular congestion correlate f or congestive heart failure. No evidence for acute thoracic or abdominal process. 2. Hepatic steatosis correlate for elevated liver labs secondary to heart failure. [facility], , 07/27/2024 4:41 PM
[2024-07-27] MEDS: SODIUM CHLORIDE 0.9% 1,000 ML IV ONE (17:18)
[2024-07-27] MEDS: PHYTONADIONE 10 MG in SODIUM CHLORIDE 0.9% 50 ML IVPB STA (18:05)
[2024-07-27] MEDS: DILTIAZEM 125 MG in SODIUM CHLORIDE 0.9% 100 ML IV SCH (18:15)
[2024-07-27] MEDS: SODIUM CHLORIDE 0.9% 1,000 ML IV SCH (18:50)
[2024-07-27 19:32] LABS: ALT 151 U/L (4-49); African American GFR (CKD) 16 (>60 ml/min/1.73 sqM); Albumin 3.2 g/dL (3.5-5.0); Anion Gap 17 mmol/L; Calcium 8.6 mg/dL (8.4-10.2); Carbon Dioxide 27 mmol/L (22-30); Chloride 96 mmol/L (98-107); Glucose 108 mg/dL (74-99); Non-African American GFR(CKD) 14 (>60 ml/min/1.73 sqM); Sodium 140 mmol/L (137-145); Total Bilirubin 9.1 mg/dL (0.2-1.3); Total Protein 5.6 g/dL (6.3-8.2)
[2024-07-27 19:34] LABS: AST 359 U/L (17-59); Alkaline Phosphatase 81 U/L (38-126); Blood Urea Nitrogen 109 mg/dL (9-20); Potassium 3.7 mmol/L (3.5-5.1)
[2024-07-27 19:39] LABS: Partial Thromboplastin Time 41.3 sec (22.0-30.0)
[2024-07-27 20:16] LABS: Prothrombin Time 82.2 sec (10.0-12.5)
[2024-07-27 20:29] LABS: INR 8.3 (<1.2)
[2024-07-27] MEDS ORDERED: NALOXONE 0.4 MG/ML 1 ML VIAL IV PRN (20:42)
[2024-07-27] MEDS: LORazepam 2 MG/ML INJ IV STA (21:40)
[2024-07-27 23:15] LABS: Glucose,Whole Blood 112 mg/dL (70-110)
[2024-07-27] MEDS ORDERED: LORazepam 2 MG/ML INJ IV PRN (23:50)
[2024-07-27] MEDS: SODIUM CHLORIDE 0.9% 500 ML 500 ML IV ONE (23:55)
[2024-07-28] MEDS: LORazepam 2 MG/ML INJ IV PRN ×2 (02:14→10:31)
[2024-07-28 05:48] LABS: Basophils % (A) 0 %; Eosinophils # (A) 0.1 k/uL (0-0.7); Eosinophils % (A) 1 %; HCT 37.7 % (39.0-53.0); HGB 11.7 gm/dL (13.0-17.5); Hypochromasia Moderate; Lymphocytes # (A) 0.9 k/uL (1.0-4.8); Lymphocytes % (A) 8 %; MCH 29.9 pg (25.0-35.0); MCHC 30.9 g/dL (31.0-37.0); MCV 96.7 fL (80.0-100.0); Mean Platelet Volume 12.4; Monocytes # (A) 0.7 k/uL (0-1.0); Monocytes % (A) 6 %; Neutrophils # (A) 9.5 k/uL (1.3-7.7); Neutrophils % (A) 83 %; Platelet Count 119 k/uL (150-450); RDW 14.9 % (11.5-15.5); WBC 11.4 k/uL (3.8-10.6)
[2024-07-28 05:49] LABS: Glucose,Whole Blood 121 mg/dL (70-110)
[2024-07-28 05:57] LABS: Prothrombin Time 29.3 sec (10.0-12.5)
[2024-07-28 06:02] LABS: ALT 164 U/L (4-49); AST 343 U/L (17-59); African American GFR (CKD) 16 (>60 ml/min/1.73 sqM); Albumin 3.2 g/dL (3.5-5.0); Alkaline Phosphatase 91 U/L (38-126); Anion Gap 10 mmol/L; Calcium 8.5 mg/dL (8.4-10.2); Carbon Dioxide 30 mmol/L (22-30); Chloride 100 mmol/L (98-107); Glucose 118 mg/dL (74-99); Non-African American GFR(CKD) 13 (>60 ml/min/1.73 sqM); Potassium 3.2 mmol/L (3.5-5.1); Sodium 140 mmol/L (137-145); Total Bilirubin 9.1 mg/dL (0.2-1.3); Total Protein 5.5 g/dL (6.3-8.2)
[2024-07-28 06:13] LABS: Blood Urea Nitrogen 113 mg/dL (9-20)
[2024-07-28] MEDS: POTASSIUM CHLORIDE 10 MEQ in WATER FOR INJECTION 1 100ML.BAG IVPB SCH (07:08)
--- NOTE | 2024-07-28 07:59 | XR ---
EXAMINATION TYPE: XR chest 1V DATE OF EXAM: 07/28/2024 COMPARISON: 07/27/2024 HISTORY: 69-year-old male CHF TECHNIQUE: Single frontal view of the chest is obtained. FINDINGS: Heart mildly enlarged. Hazy density right mid to lower lung is increased. Mild interstitia l prominence is unchanged. Left base underpenetrated and not well assessed. IMPRESSION: Hazy density throughout the right mid and lower lung has increased. Suspect some increas ing pleural effusion with adjacent atelectasis and/or consolidation. Likely sequela of mild CHF. Left base is underpenetrated and not well assessed. [facility], , 07/28/2024 7:57 AM
--- NOTE | 2024-07-28 09:44 | P.CRDCN ---
History of Present Illness Consult date: 07/28/24 Consult reason: atrial fibrillation, congestive heart failure History of present illness: The patient is a 69-year-old male who was brought to the hospital after being found down in his home and not being seen for at least 1 week, according to ER records. The patient's sister provided a history of EtOH abuse as well as prostate cancer, which he has chose to not treat. He has been confused since arrival, but is able to maintain his airway currently. He is on high flow nasal cannula. DIAGNOSTICS: EKG reveals A-fib with RVR CT of the head and cervical spine shows no acute intracranial process with degenerative disc disease CT chest abdomen pelvis shows cardiomegaly anasarca and bilateral pleural effusions, as well as hepatic steatosis Chest x-ray shows hazy density throughout the right mid and lower lung, suspect increasing pleural effusion with adjacent atelectasis Lab data: WBC 11.4, hemoglobin 11.7, hematocrit 37.7, platelet 119, sodium 140, potassium 3.2, BUN 113, creatinine 4.25, lactic 2.5, AST 343, ALT 164, ALP 91, creatinine kinase 1264, BNP 34,000, troponin 0.96, TSH 4.2 Telemetry: Atrial fibrillation with heart rates in the 120's PAST MEDICAL HISTORY: Prostate cancer, EtOH abuse REVIEW OF SYSTEMS: Unable to complete due to patient's mental status PHYSICAL EXAMINATION: This is a 69-year-old male in no apparent distress at the time of my examination. HEENT: Head is atraumatic, normocephalic. Mucous membranes of the mouth are moist. There is no jugular venous distention. No carotid bruit is heard. CHEST EXAMINATION: Lungs are diminished to auscultation. No chest wall tenderness is noted on palpation or with deep breathing. HEART EXAMINATION: Irregular heart rate. S1, S2 heard. Systolic murmur ABDOMEN: Soft, nontender. Bowel sounds are heard. No organomegaly noted. EXTREMITIES: +2-3 lower extremity pitting edema. Extremities warm. NEUROLOGIC EXAMINATION: Patient is responsive to touch, confused. FINAL ASSESSMENT AND PLAN: Atrial fibrillation with RVR Elevated troponins, in the setting of rhabdomyolysis and atrial fibrillation Elevated BNP, awaiting echocardiogram results Rhabdomyolysis Acute kidney injury Elevated liver enzymes History of EtOH abuse History of prostate cancer PLAN: Continue Cardizem for rate control Patient is poor candidate for anticoagulation Further recommendations to be based upon clinical course. Prognosis is guarded. I am dictating on behalf of Dr Wellington Maria's history/physical and assessment/plan. Past Medical History Additional Past Medical History / Comment(s): unable to obtain medical history. History of Any Multi-Drug Resistant Organisms: None Reported Additional Past Surgical History / Comment(s): unable to obtain surgical history Smoking Status: Unknown if ever smoked Medications and Allergies Home Medications Medication Instructions Recorded Confirmed Type Unable To Assess [Unable to Assess] 07/27/24 07/27/24 History Allergies Allergy/AdvReac Type Severity Reaction Status Date / Time Unable to Assess Allergy Verified 07/27/24 14:08 Physical Exam Vitals: Vital Signs Temp Pulse Pulse Resp BP Pulse Ox 07/28/24 09:06 88 L 07/28/24 07:00 116 H 7 L 98/69 91 L 07/28/24 06:45 126 H 28 H 90/73 89 L 07/28/24 06:30 122 H 24 103/77 88 L 07/28/24 06:15 126 H 28 H 89/76 89 L 07/28/24 06:00 122 H 26 H 103/71 93 L 07/28/24 05:45 131 H 32 H 101/73 89 L 07/28/24 05:30 117 H 12 111/28 90 L 07/28/24 05:15 126 H 7 L 111/86 93 L 07/28/24 05:00 108 H 11 L 93/67 92 L 07/28/24 04:45 116 H 17 85/60 89 L 07/28/24 04:30 122 H 17 110/86 89 L 07/28/24 04:15 130 H 19 98/79 90 L 07/28/24 04:00 97.4 F L 129 H 116 H 36 H 93/70 93 L 07/28/24 03:45 125 H 12 85/75 91 L 07/28/24 03:30 141 H 24 91/81 90 L 07/28/24 03:15 125 H 12 94/83 93 L 07/28/24 03:00 129 H 18 109/93 90 L 07/28/24 02:45 152 H 18 96/70 07/28/24 02:30 135 H 24 93 L 07/28/24 02:15 111 H 21 92/25 90 L 07/28/24 02:00 124 H 18 108/88 90 L 07/28/24 01:45 131 H 7 L 120/88 90 L 07/28/24 01:40 126 H 20 120/88 89 L 07/28/24 01:30 137 H 21 129/89 07/28/24 01:15 126 H 8 L 96/75 90 L 07/28/24 01:00 137 H 8 L 87/59 90 L 07/28/24 00:45 134 H 20 99/78 88 L 07/28/24 00:30 140 H 8 L 97/66 91 L 07/28/24 00:15 129 H 21 101/66 93 L 07/28/24 00:03 138 H 24 101/66 93 L 07/28/24 00:00 147 H 129 H 18 99/64 93 L 07/27/24 23:50 126 H 10 L 99/64 95 07/27/24 23:30 97.8 F 133 H 6 L 105/73 96 07/27/24 23:15 141 H 9 L 91 L 07/27/24 23:00 130 H 26 H 91/54 91 L 07/27/24 22:56 97.5 F L 137 H 18 91/54 07/27/24 22:45 120 H 21 95/69 91 L 07/27/24 22:33 98.0 F 124 H 16 84/67 07/27/24 22:30 137 H 18 95/64 90 L 07/27/24 22:15 124 H 20 98/76 92 L 07/27/24 22:10 97.0 F L 140 H 18 103/84 92 L 07/27/24 22:00 26 H 85/57 93 L 07/27/24 21:45 138 H 12 112/83 91 L 07/27/24 21:30 129 H 11 L 88/63 88 L 07/27/24 21:28 97.0 F L 135 H 18 96/81 92 L 07/27/24 21:15 140 H 15 94/84 81 L 07/27/24 21:00 133 H 17 80/62 83 L 07/27/24 20:45 138 H 17 94/58 87 L 07/27/24 20:35 97.5 F L 125 H 16 97/62 07/27/24 20:30 137 H 19 102/72 89 L 07/27/24 20:23 93 L 07/27/24 20:16 135 H 18 102/72 07/27/24 20:15 97.3 F L 134 H 15 102/72 07/27/24 20:10 97.3 F L 126 H 16 105/80 07/27/24 20:00 135 H 17 95/64 07/27/24 19:45 165 H 19 70/24 83 L 07/27/24 19:41 158 H 16 94/64 07/27/24 19:30 140 H 11 L 93/79 07/27/24 19:15 149 H 15 94/68 07/27/24 19:00 151 H 15 107/73 96 07/27/24 18:45 137 H 15 110/80 95 07/27/24 18:30 144 H 15 97/79 97 07/27/24 18:21 144 H 22 105/81 07/27/24 18:18 128 H 22 99/73 97 07/27/24 18:15 138 H 16 101/89 07/27/24 18:05 71/24 07/27/24 18:00 96.0 F L 137 H 17 76/59 07/27/24 17:45 111/73 07/27/24 17:30 105/88 07/27/24 17:15 115/89 07/27/24 16:45 147 H 62/31 93 L 07/27/24 16:30 113/94 07/27/24 16:15 113/94 07/27/24 16:00 149 H 124/111 07/27/24 15:45 152 H 119/96 07/27/24 15:30 168 H 17 112/79 07/27/24 15:01 149 H 12 113/68 84 L 07/27/24 14:26 96.0 F L 07/27/24 14:09 154 H 18 130/92 84 L Intake and Output 07/27/24 07/28/24 07/28/24 22:59 06:59 14:59 Intake Total 231.75 1515.167 100 Output Total 305 15 Balance 231.75 1210.167 85 Intake: Intake, IV Titration 6.75 1296.167 100 Amount Diltiazem 125 mg In 6.75 96.167 Sodium Chloride 0.9% 100 ml @ 5 MG/HR 5 mls/hr IV .Q24H [facility] Rx#:[id number] Sodium Chloride 0.9% 1, 700 100 000 ml @ 100 mls/hr IV . Q10H [facility] Rx#:[id number] Sodium Chloride 0.9% 500 500 ml 500 ml @ 999 mls/hr IV .Q31M ONE Rx#:[id number] Blood Product 225 219 Ffp 24 Pher Acda Cnt1 225 Unit [id number] Ffp 24 Pher Acda Cnt1 0 219 Unit [id number] Output: Urine 305 15 Other: Voiding Method Indwelling Catheter Weight 109.6 kg Results 07/28/24 05:29 07/28/24 05:29 Cardiac Enzymes 07/27/24 07/27/24 07/27/24 Range/Units 14:19 14:19 19:07 AST 353 H (17-59) U/L Troponin I 0.759 H* 0.967 H* (0.000-0.034) ng/mL 07/27/24 07/28/24 Range/Units 19:07 05:29 AST 359 H 343 H (17-59) U/L Troponin I (0.000-0.034) ng/mL Coagulation 07/27/24 07/27/24 07/28/24 Range/Units 14:19 19:07 05:29 PT 113.8 H 82.2 H 29.3 H (10.0-12.5) sec APTT 37.2 H 41.3 H (22.0-30.0) sec CBC 07/27/24 07/28/24 Range/Units 14:19 05:29 WBC 9.6 11.4 H (3.8-10.6) k/uL RBC 4.21 L 3.90 L (4.30-5.90) m/uL Hgb 13.1 11.7 L (13.0-17.5) gm/dL Hct 40.5 37.7 L (39.0-53.0) % Plt Count 119 L 119 L (150-450) k/uL Comprehensive Metabolic Panel 07/27/24 07/27/24 07/28/24 Range/Units 14:19 19:07 05:29 Sodium 139 140 140 (137-145) mmol/L Potassium 3.8 3.7 3.2 L (3.5-5.1) mmol/L Chloride 93 L 96 L 100 (98-107) mmol/L Carbon Dioxide 25 27 30 (22-30) mmol/L BUN 104 H* 109 H* 113 H* (9-20) mg/dL Creatinine 4.62 H 4.14 H 4.25 H (0.66-1.25) mg/dL Glucose 103 H 108 H 118 H (74-99) mg/dL Calcium 9.1 8.6 8.5 (8.4-10.2) mg/dL AST 353 H 359 H 343 H (17-59) U/L ALT 162 H 151 H 164 H (4-49) U/L Alkaline Phosphatase 92 81 91 (38-126) U/L Total Protein 5.7 L 5.6 L 5.5 L (6.3-8.2) g/dL Albumin 3.4 L 3.2 L 3.2 L (3.5-5.0) g/dL Current Medications Generic Name Dose Route Start Last Admin Trade Name Freq PRN Reason Stop Dose Admin Diltiazem HCl 125 mg/ Sodium 125 mls @ 5 mls/hr 07/27/24 17:15 07/28/24 05:13 Chloride IV 10 mg/hr .Q24H HERB 10 mls/hr Administration 5 MG/HR Sodium Chloride 1,000 mls @ 100 mls/hr 07/27/24 18:45 07/28/24 06:57 Saline 0.9% IV Not Given .Q10H HERB Potassium Chloride 10 meq/ IV 100 mls @ 100 mls/hr 07/28/24 08:00 07/28/24 08:31 Solution IVPB 07/28/24 09:59 100 mls/hr Q1H HERB Administration Lorazepam 1 mg 07/27/24 23:50 Lorazepam 2 Mg/Ml Inj IV Q1HR PRN CIWA 10 to 15 Lorazepam 1 mg 07/27/24 23:50 07/28/24 02:14 Lorazepam 2 Mg/Ml Inj IV 1 mg Q2HR PRN Administration CIWA 8 or 9 Lorazepam 2 mg 07/27/24 23:50 Lorazepam 2 Mg/Ml Inj IV 07/29/24 23:51 Q10M PRN CIWA 16 or higher Naloxone HCl 0.2 mg 07/27/24 20:42 Naloxone 0.4 Mg/Ml 1 Ml Vial IV Q2M PRN Opioid Reversal Intake and Output 07/27/24 07/28/24 07/28/24 22:59 06:59 14:59 Intake Total 231.75 1515.167 100 Output Total 305 15 Balance 231.75 1210.167 85 Intake: Intake, IV Titration 6.75 1296.167 100 Amount Diltiazem 125 mg In 6.75 96.167 Sodium Chloride 0.9% 100 ml @ 5 MG/HR 5 mls/hr IV .Q24H [facility] Rx#:[id number] Sodium Chloride 0.9% 1, 700 100 000 ml @ 100 mls/hr IV . Q10H [facility] Rx#:[id number] Sodium Chloride 0.9% 500 500 ml 500 ml @ 999 mls/hr IV .Q31M ONE Rx#:[id number] Blood Product 225 219 Ffp 24 Pher Acda Cnt1 225 Unit [id number] Ffp 24 Pher Acda Cnt1 0 219 Unit [id number] Output: Urine 305 15 Other: Voiding Method Indwelling Catheter Weight 109.6 kg 07/28/24 05:29 07/28/24 05:29
[2024-07-28] MEDS: NOREPINEPHRINE 4 MG in SODIUM CHLORIDE 0.9% 250 ML IV SCH (10:02)
[2024-07-28] MEDS: DEXMEDETOMIDINE/0.9% NACL(PMX) 400 MCG in EMPTY BAG 1 BAG IV SCH (10:03)
[2024-07-28] MEDS: FUROSEMIDE 10 MG/ML 10 ML VIAL IV ONE (10:08)
--- NOTE | 2024-07-28 10:23 | P.NPCON ---
History of Present Illness - Reason for Consult acute renal failure - History of Present Illness Reason for consultation: Acute kidney injury History of present illness: Patient is a 69-year-old male seen in renal consultation for acute kidney injury. Patient is a poor historian. Family present at bedside. It is noted patient came to the hospital after he was found down at home of an unknown duration. Creatinine was 4.62 on admission and is 4.25 today. Patient did receive 2 L of fluid bolus and is currently maintained on normal saline at 100 cc an hour. CK level was 2243 on admission and is 1264 today. Imaging showed no hydronephrosis but was suggestive of fluid overload state. No history of diabetes. No history of coronary artery disease. 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 Patient is hypotensive and Levophed will be initiated. He will also be placed on a BiPAP. No home meds noted. Currently on Cardizem drip for A-fib with RVR. Vital signs -in A-fib. Hypotensive. No acute distress. HEENT: Head exam is unremarkable. On high flow nasal cannula. LUNGS: Scattered rhonchi. HEART: Irregular rate and rhythm. ABDOMEN: No distention. EXTREMITITES: 2+ edema. Past Medical History Additional Past Medical History / Comment(s): unable to obtain medical history. History of Any Multi-Drug Resistant Organisms: None Reported Additional Past Surgical History / Comment(s): unable to obtain surgical history Smoking Status: Unknown if ever smoked Medications and Allergies Home Medications Medication Instructions Recorded Confirmed Type Unable To Assess [Unable to Assess] 07/27/24 07/27/24 History Allergies Allergy/AdvReac Type Severity Reaction Status Date / Time Unable to Assess Allergy Verified 07/27/24 14:08 Physical Exam Vitals: Vital Signs Temp Pulse Pulse Resp BP Pulse Ox FiO2 07/28/24 09:46 100 07/28/24 09:06 88 L 07/28/24 07:00 116 H 7 L 98/69 91 L 07/28/24 06:45 126 H 28 H 90/73 89 L 07/28/24 06:30 122 H 24 103/77 88 L 07/28/24 06:15 126 H 28 H 89/76 89 L 07/28/24 06:00 122 H 26 H 103/71 93 L 07/28/24 05:45 131 H 32 H 101/73 89 L 07/28/24 05:30 117 H 12 111/28 90 L 07/28/24 05:15 126 H 7 L 111/86 93 L 07/28/24 05:00 108 H 11 L 93/67 92 L 07/28/24 04:45 116 H 17 85/60 89 L 07/28/24 04:30 122 H 17 110/86 89 L 07/28/24 04:15 130 H 19 98/79 90 L 07/28/24 04:00 97.4 F L 129 H 116 H 36 H 93/70 93 L 07/28/24 03:45 125 H 12 85/75 91 L 07/28/24 03:30 141 H 24 91/81 90 L 07/28/24 03:15 125 H 12 94/83 93 L 07/28/24 03:00 129 H 18 109/93 90 L 07/28/24 02:45 152 H 18 96/70 07/28/24 02:30 135 H 24 93 L 07/28/24 02:15 111 H 21 92/25 90 L 07/28/24 02:00 124 H 18 108/88 90 L 07/28/24 01:45 131 H 7 L 120/88 90 L 07/28/24 01:40 126 H 20 120/88 89 L 07/28/24 01:30 137 H 21 129/89 07/28/24 01:15 126 H 8 L 96/75 90 L 07/28/24 01:00 137 H 8 L 87/59 90 L 07/28/24 00:45 134 H 20 99/78 88 L 07/28/24 00:30 140 H 8 L 97/66 91 L 07/28/24 00:15 129 H 21 101/66 93 L 07/28/24 00:03 138 H 24 101/66 93 L 07/28/24 00:00 147 H 129 H 18 99/64 93 L 07/27/24 23:50 126 H 10 L 99/64 95 07/27/24 23:30 97.8 F 133 H 6 L 105/73 96 07/27/24 23:15 141 H 9 L 91 L 07/27/24 23:00 130 H 26 H 91/54 91 L 07/27/24 22:56 97.5 F L 137 H 18 91/54 07/27/24 22:45 120 H 21 95/69 91 L 07/27/24 22:33 98.0 F 124 H 16 84/67 07/27/24 22:30 137 H 18 95/64 90 L 07/27/24 22:15 124 H 20 98/76 92 L 07/27/24 22:10 97.0 F L 140 H 18 103/84 92 L 07/27/24 22:00 26 H 85/57 93 L 07/27/24 21:45 138 H 12 112/83 91 L 07/27/24 21:30 129 H 11 L 88/63 88 L 07/27/24 21:28 97.0 F L 135 H 18 96/81 92 L 07/27/24 21:15 140 H 15 94/84 81 L 07/27/24 21:00 133 H 17 80/62 83 L 07/27/24 20:45 138 H 17 94/58 87 L 07/27/24 20:35 97.5 F L 125 H 16 97/62 07/27/24 20:30 137 H 19 102/72 89 L 07/27/24 20:23 93 L 07/27/24 20:16 135 H 18 102/72 07/27/24 20:15 97.3 F L 134 H 15 102/72 07/27/24 20:10 97.3 F L 126 H 16 105/80 07/27/24 20:00 135 H 17 95/64 07/27/24 19:45 165 H 19 70/24 83 L 07/27/24 19:41 158 H 16 94/64 07/27/24 19:30 140 H 11 L 93/79 07/27/24 19:15 149 H 15 94/68 07/27/24 19:00 151 H 15 107/73 96 07/27/24 18:45 137 H 15 110/80 95 07/27/24 18:30 144 H 15 97/79 97 07/27/24 18:21 144 H 22 105/81 07/27/24 18:18 128 H 22 99/73 97 07/27/24 18:15 138 H 16 101/89 07/27/24 18:05 71/24 07/27/24 18:00 96.0 F L 137 H 17 76/59 07/27/24 17:45 111/73 07/27/24 17:30 105/88 07/27/24 17:15 115/89 07/27/24 16:45 147 H 62/31 93 L 07/27/24 16:30 113/94 07/27/24 16:15 113/94 07/27/24 16:00 149 H 124/111 07/27/24 15:45 152 H 119/96 07/27/24 15:30 168 H 17 112/79 07/27/24 15:01 149 H 12 113/68 84 L 07/27/24 14:26 96.0 F L 07/27/24 14:09 154 H 18 130/92 84 L Intake and Output 07/27/24 07/28/24 07/28/24 22:59 06:59 14:59 Intake Total 231.75 1515.167 100 Output Total 305 15 Balance 231.75 1210.167 85 Intake: Intake, IV Titration 6.75 1296.167 100 Amount Diltiazem 125 mg In 6.75 96.167 Sodium Chloride 0.9% 100 ml @ 5 MG/HR 5 mls/hr IV .Q24H [facility] Rx#:[id number] Sodium Chloride 0.9% 1, 700 100 000 ml @ 100 mls/hr IV . Q10H [facility] Rx#:[id number] Sodium Chloride 0.9% 500 500 ml 500 ml @ 999 mls/hr IV .Q31M ONE Rx#:[id number] Blood Product 225 219 Ffp 24 Pher Acda Cnt1 225 Unit [id number] Ffp 24 Pher Acda Cnt1 0 219 Unit [id number] Output: Urine 305 15 Other: Voiding Method Indwelling Catheter Weight 109.6 kg Results - Lab Results Most recent lab results Calcium 8.5 mg/dL (8.4-10.2) 07/28/24 05:29 07/28/24 05:29 07/28/24 05:29 Assessment and Plan Plan: Plan: 1. Acute kidney injury secondary to hemodynamic ATN. Creatinine 4.6 on admission and is 4.25 today. Unknown baseline renal function. No hydronephrosis noted on imaging. 2. A-fib with RVR maintained on Cardizem drip. 3. Volume overload. 4. Acute on chronic systolic CHF ejection fraction of 20%. 5. Hypokalemia from poor intake. 6. Mild rhabdomyolysis due to fall/immobility. Improved. 7. Acute hypoxic respiratory failure secondary to volume overload. Plan: Levophed will be initiated to maintain adequate MAP. Start Lasix drip at 5 cc an hour. Consider dobutamine. Defer to cardiology. Wean FiO2. Continue to monitor renal function and urine output. Potassium replaced. Level will be repeated this afternoon. Avoid nephrotoxins. Thank you for the consultation. I will continue to follow the patient with you during his hospital stay.
[2024-07-28] MEDS: FUROSEMIDE 100 MG in SODIUM CHLORIDE 0.9% 90 ML IV SCH ×2 (10:47→21:26)
[2024-07-28] MEDS: THIAMINE 100 MG/ML 2 ML VIAL IVP SCH (10:58)
--- NOTE | 2024-07-28 11:38 | P.CNPUL ---
History of Present Illness Consult date: 07/28/24 Requesting physician: Fabiola Felix Reason for consult: dyspnea, other (Altered mental status) Chief complaint: Altered mental status History of present illness: This is a 69-year-old white male with history of alcoholism, lives at home by himself, patient presented to the ER yesterday after he was found unresponsive on the floor, and he was discovered by his neighbor. His unresponsiveness is of unknown duration, apparently his neighbor saw him last a week prior. Patient was found on the floor, was noted to be quite edematous, and apparently there was food burning on the stove. Patient could not responD to any questions. And his sister was at bedside all she knows is the patient has been diagnosed with prostate cancer and untreated. She also told me that he has history of alcoholism. Patient was admitted to the ICU, and he was noted to be hypotensive he was also noted to have ascites, pulmonary edema based on chest x-ray, he was also noted to have severe LV dysfunction with ejection fraction of 20%, his labs showed relatively normal CBC, platelets are 1 19,000's, INR was extremely elevated received fresh frozen plasma and vitamin K, last INR is 3 his bicarb is 13 BUN is 113 creatinine 4.25. CPK was also elevated 1264. Her enzymes elevated with AST of 343 and ALT of 164 patient is obtunded, restless, agitated, hence I have recommended starting the patient on Precedex, I also recommended pressors in the form of norepinephrine, may add vasopressin may also add dobutam ine. Review of Systems ROS unobtainable: due to mental status Past Medical History Additional Past Medical History / Comment(s): unable to obtain medical history. History of Any Multi-Drug Resistant Organisms: None Reported Additional Past Surgical History / Comment(s): unable to obtain surgical history Smoking Status: Unknown if ever smoked Medications and Allergies Home Medications Medication Instructions Recorded Confirmed Type Unable To Assess [Unable to Assess] 07/27/24 07/27/24 History Allergies Allergy/AdvReac Type Severity Reaction Status Date / Time Unable to Assess Allergy Verified 07/27/24 14:08 Physical Exam Vitals: Vital Signs Temp Pulse Pulse Resp BP Pulse Ox FiO2 07/28/24 10:56 97.7 F 121 H 11 L 83/58 97 07/28/24 09:46 100 07/28/24 09:06 88 L 10/21/24 07:00 116 H 7 L 98/69 91 L 07/28/24 06:45 126 H 28 H 90/73 89 L 07/28/24 06:30 122 H 24 103/77 88 L 07/28/24 06:15 126 H 28 H 89/76 89 L 07/28/24 06:00 122 H 26 H 103/71 93 L 07/28/24 05:45 131 H 32 H 101/73 89 L 07/28/24 05:30 117 H 12 111/28 90 L 07/28/24 05:15 126 H 7 L 111/86 93 L 07/28/24 05:00 108 H 11 L 93/67 92 L 07/28/24 04:45 116 H 17 85/60 89 L 07/28/24 04:30 122 H 17 110/86 89 L 07/28/24 04:15 130 H 19 98/79 90 L 07/28/24 04:00 97.4 F L 129 H 116 H 36 H 93/70 93 L 07/28/24 03:45 125 H 12 85/75 91 L 07/28/24 03:30 141 H 24 91/81 90 L 07/28/24 03:15 125 H 12 94/83 93 L 07/28/24 03:00 129 H 18 109/93 90 L 07/28/24 02:45 152 H 18 96/70 07/28/24 02:30 135 H 24 93 L 07/28/24 02:15 111 H 21 92/25 90 L 07/28/24 02:00 124 H 18 108/88 90 L 07/28/24 01:45 131 H 7 L 120/88 90 L 07/28/24 01:40 126 H 20 120/88 89 L 07/28/24 01:30 137 H 21 129/89 07/28/24 01:15 126 H 8 L 96/75 90 L 07/28/24 01:00 137 H 8 L 87/59 90 L 07/28/24 00:45 134 H 20 99/78 88 L 07/28/24 00:30 140 H 8 L 97/66 91 L 07/28/24 00:15 129 H 21 101/66 93 L 07/28/24 00:03 138 H 24 101/66 93 L 07/28/24 00:00 147 H 129 H 18 99/64 93 L 07/27/24 23:50 126 H 10 L 99/64 95 07/27/24 23:30 97.8 F 133 H 6 L 105/73 96 07/27/24 23:15 141 H 9 L 91 L 07/27/24 23:00 130 H 26 H 91/54 91 L 07/27/24 22:56 97.5 F L 137 H 18 91/54 07/27/24 22:45 120 H 21 95/69 91 L 07/27/24 22:33 98.0 F 124 H 16 84/67 07/27/24 22:30 137 H 18 95/64 90 L 07/27/24 22:15 124 H 20 98/76 92 L 07/27/24 22:10 97.0 F L 140 H 18 103/84 92 L 07/27/24 22:00 26 H 85/57 93 L 07/27/24 21:45 138 H 12 112/83 91 L 07/27/24 21:30 129 H 11 L 88/63 88 L 07/27/24 21:28 97.0 F L 135 H 18 96/81 92 L 07/27/24 21:15 140 H 15 94/84 81 L 07/27/24 21:00 133 H 17 80/62 83 L 07/27/24 20:45 138 H 17 94/58 87 L 07/27/24 20:35 97.5 F L 125 H 16 97/62 07/27/24 20:30 137 H 19 102/72 89 L 07/27/24 20:23 93 L 07/27/24 20:16 135 H 18 102/72 07/27/24 20:15 97.3 F L 134 H 15 102/72 07/27/24 20:10 97.3 F L 126 H 16 105/80 07/27/24 20:00 135 H 17 95/64 07/27/24 19:45 165 H 19 70/24 83 L 07/27/24 19:41 158 H 16 94/64 07/27/24 19:30 140 H 11 L 93/79 07/27/24 19:15 149 H 15 94/68 07/27/24 19:00 151 H 15 107/73 96 07/27/24 18:45 137 H 15 110/80 95 10/20/24 18:30 144 H 15 97/79 97 07/27/24 18:21 144 H 22 105/81 07/27/24 18:18 128 H 22 99/73 97 07/27/24 18:15 138 H 16 101/89 07/27/24 18:05 71/24 07/27/24 18:00 96.0 F L 137 H 17 76/59 07/27/24 17:45 111/73 07/27/24 17:30 105/88 07/27/24 17:15 115/89 07/27/24 16:45 147 H 62/31 93 L 07/27/24 16:30 113/94 07/27/24 16:15 113/94 07/27/24 16:00 149 H 124/111 07/27/24 15:45 152 H 119/96 07/27/24 15:30 168 H 17 112/79 07/27/24 15:01 149 H 12 113/68 84 L 07/27/24 14:26 96.0 F L 07/27/24 14:09 154 H 18 130/92 84 L Intake and Output 07/27/24 07/28/24 07/28/24 22:59 06:59 14:59 Intake Total 231.75 1515.167 118.592 Output Total 305 15 Balance 231.75 1210.167 103.592 Intake: Intake, IV Titration 6.75 1296.167 118.592 Amount Dexmedetomidine/0.9% NaCl 6.622 (Pmx) 400 mcg In Empty Bag 1 bag @ 0.2 MCG/KG/HR 5.48 mls/hr IV .[id number] HERB Rx#:[id number] Diltiazem 125 mg In 6.75 96.167 Sodium Chloride 0.9% 100 ml @ 5 MG/HR 5 mls/hr IV .Q24H HERB Rx#:[id number] Norepinephrine 4 mg In 11.970 Sodium Chloride 0.9% 250 ml @ 0.03 MCG/KG/MIN 12. 527 mls/hr IV .[id number] HERB Rx#:[id number] Sodium Chloride 0.9% 1, 700 100 000 ml @ 100 mls/hr IV . Q10H HERB Rx#:[id number] Sodium Chloride 0.9% 500 500 ml 500 ml @ 999 mls/hr IV .Q31M ONE Rx#:[id number] Blood Product 225 219 0 Ffp 24 Pher Acda Unit 0 [id number] Ffp 24 Pher Acda Cnt1 225 Unit [id number] Ffp 24 Pher Acda Cnt1 0 219 Unit [id number] Output: Urine 305 15 Other: Voiding Method Indwelling Catheter Weight 109.6 kg 109.6 kg Physical exam: General: Reveals 69-year-old white male restless, agitated, unable to place on BiPAP, keeps moving the mask off. On high flow nasal cannula at 15 L/min Head: Atraumatic, normocephalic EENT: Dry mucous membranes positive icterus. No neck masses no JVD Pulmonary: Diminished breath sound bilaterally no crackles rhonchi or wheezes HEART EXAMINATION: Irregular irregular rhythm, 2/6 systolic murmur throughout the precordium ABDOMEN: Positive ascites soft, nontender. Bowel sounds are heard. No organomegaly noted. EXTREMITIES: 3+ bipedal edema with diminished distal pulses bilaterally. NEUROLOGIC EXAMINATION: Obtunded, wakes up to painful stimuli gets agitated and restless, no purposeful movement. Psychiatric: Could not assess, patient is obtunded. Results - Laboratory Findings CBC and BMP: 07/28/24 05:29 07/28/24 05:29 PT/INR, D-dimer PT 29.3 sec (10.0-12.5) H 07/28/24 05:29 INR 3.0 (<1.2) H 07/28/24 05:29 Abnormal lab findings: Abnormal Labs 07/27/24 07/27/24 07/27/24 14:19 14:19 14:19 WBC RBC 4.21 L Hgb Hct MCHC Plt Count 119 L Neutrophils # Neutrophils # (Manual) 8.06 H Lymphocytes # PT 113.8 H INR >10.0 H* APTT 37.2 H Potassium Chloride BUN Creatinine Glucose POC Glucose (mg/dL) Plasma Lactic Acid Jose Total Bilirubin AST ALT Creatine Kinase Troponin I Total Protein Albumin Urine Protein 1+ H Urine Ketones Trace H Urine Blood Small H Urine Bilirubin 1+ H Urine RBC 7 H Urine Bacteria Occasional H Hyaline Casts 13 H Urine Mucus Rare H 10/20/24 10/20/24 10/20/24 14:19 14:19 14:19 WBC RBC Hgb Hct MCHC Plt Count Neutrophils # Neutrophils # (Manual) Lymphocytes # PT INR APTT Potassium Chloride 93 L BUN 104 H* Creatinine 4.62 H Glucose 103 H POC Glucose (mg/dL) Plasma Lactic Acid Jose 8.7 H* Total Bilirubin 9.8 H AST 353 H ALT 162 H Creatine Kinase 2243 H* Troponin I 0.759 H* Total Protein 5.7 L Albumin 3.4 L Urine Protein Urine Ketones Urine Blood Urine Bilirubin Urine RBC Urine Bacteria Hyaline Casts Urine Mucus 07/27/24 07/27/24 07/27/24 19:07 19:07 19:07 WBC RBC Hgb Hct MCHC Plt Count Neutrophils # Neutrophils # (Manual) Lymphocytes # PT 82.2 H INR 8.3 H* APTT 41.3 H Potassium Chloride BUN Creatinine Glucose POC Glucose (mg/dL) Plasma Lactic Acid Jose 6.2 H* Total Bilirubin AST ALT Creatine Kinase Troponin I 0.967 H* Total Protein Albumin Urine Protein Urine Ketones Urine Blood Urine Bilirubin Urine RBC Urine Bacteria Hyaline Casts Urine Mucus 07/27/24 07/27/24 07/27/24 19:07 21:41 23:13 WBC RBC Hgb Hct MCHC Plt Count Neutrophils # Neutrophils # (Manual) Lymphocytes # PT INR APTT Potassium Chloride 96 L BUN 109 H* Creatinine 4.14 H Glucose 108 H POC Glucose (mg/dL) 112 H Plasma Lactic Acid Jose 3.5 H* Total Bilirubin 9.1 H AST 359 H ALT 151 H Creatine Kinase Troponin I Total Protein 5.6 L Albumin 3.2 L Urine Protein Urine Ketones Urine Blood Urine Bilirubin Urine RBC Urine Bacteria Hyaline Casts Urine Mucus 07/28/24 07/28/24 07/28/24 05:29 05:29 05:29 WBC 11.4 H RBC 3.90 L Hgb 11.7 L Hct 37.7 L MCHC 30.9 L Plt Count 119 L Neutrophils # 9.5 H Neutrophils # (Manual) Lymphocytes # 0.9 L PT 29.3 H INR 3.0 H APTT Potassium 3.2 L Chloride BUN 113 H* Creatinine 4.25 H Glucose 118 H POC Glucose (mg/dL) Plasma Lactic Acid Jose Total Bilirubin 9.1 H AST 343 H ALT 164 H Creatine Kinase Troponin I Total Protein 5.5 L Albumin 3.2 L Urine Protein Urine Ketones Urine Blood Urine Bilirubin Urine RBC Urine Bacteria Hyaline Casts Urine Mucus 07/28/24 07/28/24 07/28/24 05:29 05:29 05:47 WBC RBC Hgb Hct MCHC Plt Count Neutrophils # Neutrophils # (Manual) Lymphocytes # PT INR APTT Potassium Chloride BUN Creatinine Glucose POC Glucose (mg/dL) 121 H Plasma Lactic Acid Jose 2.5 H* Total Bilirubin AST ALT Creatine Kinase 1264 H* Troponin I Total Protein Albumin Urine Protein Urine Ketones Urine Blood Urine Bilirubin Urine RBC Urine Bacteria Hyaline Casts Urine Mucus 07/28/24 09:00 WBC RBC Hgb Hct MCHC Plt Count Neutrophils # Neutrophils # (Manual) Lymphocytes # PT INR APTT Potassium Chloride BUN Creatinine Glucose POC Glucose (mg/dL) Plasma Lactic Acid Jose 3.0 H* Total Bilirubin AST ALT Creatine Kinase Troponin I Total Protein Albumin Urine Protein Urine Ketones Urine Blood Urine Bilirubin Urine RBC Urine Bacteria Hyaline Casts Urine Mucus - Diagnostic Findings Chest x-ray: image reviewed (As noted in HPI, chest x-ray is showing evidence of congestive heart failure and cardiomegaly) Assessment and Plan Assessment: Impression: Acute hypoxic respiratory failure secondary to volume overload, suspect systolic congestive heart failure/acute Hypotension cardiogenic in nature, doubt sepsis. Although it is not entirely ruled out. Acute metabolic encephalopathy Acute rhabdomyolysis Acute kidney injury secondary to rhabdomyolysis Acute systolic congestive heart failure with LV dysfunction Atrial fibrillation with RVR Elevated liver enzymes History of alcoholism/alcohol abuse History of prostate cancer Electrolytes imbalance Coagulopathy with elevated INR secondary to liver disease Recommendation: Hemodynamic support, patient to be placed on pressors Empiric antibiotics, check blood cultures Diurese the patient once blood pressure is reasonable enough, patient to be placed on Lasix drip. Close monitoring of his renal profile and urine output Address electrolytes especially potassium accordingly Avoid nephrotoxic agents Will consider dobutamine if blood pressure remains low in spite of pressors Close monitoring of urine output Cardizem for atrial fibrillation with RVR, if not tolerated may have to consider other options. Updated his sister at bedside on his condition and made aware that the patient is critically ill and may even require intubation mechanical ventilation if we could not oxygenation properly with BiPAP. Or if his pulmonary condition gets any worse with worsening pulmonary edema Prognosis is extremely poor and guarded and the patient is critically ill. Critical care time is over 50 minutes not including time spent on procedures. Time with Patient: Greater than 30
[2024-07-28] MEDS: VASOPRESSIN 20 UNIT in SODIUM CHLORIDE 0.9% 50 ML IV SCH (11:50)
[2024-07-28] MEDS: CISATRACURIUM 2 MG/ML 5 ML VIAL IV ONE (12:06)
[2024-07-28] MEDS: MORPHINE SULFATE 4 MG/ML SYRINGE IVP STA (12:07)
[2024-07-28] MEDS: PROPOFOL 10 MG/ML 20 ML VIAL IV ONE (12:07)
[2024-07-28] MEDS: NOREPINEPHRINE 32 MG in SODIUM CHLORIDE 0.9% 218 ML IV SCH (12:10)
[2024-07-28 12:28] LABS: ABG Base Excess 2.2 mmol/L; ABG HCO3 26 mmol/L (21-25); ABG Oxygen Saturation 94.3 % (94-97); ABG PCO2 36 mmHg (35-45); ABG PH 7.47 (7.35-7.45); ABG PO2 73 mmHg (83-108); ABG TCO2 27 mmol/L (19-24); Allen Test Performed? Yes
--- NOTE | 2024-07-28 12:52 | CA ---
Transthoracic Echo Report Name: Jatin Crowe Age: 69 Gender: M : 1955 Exam Date: 07/28/2024 09:17 Exam Location: [facility] Ht (in): 72 Wt (lb): 280 Ordering Physician: Belen Benson DO Attending/Referring Phys: [id number], Kelley Account Installer Carlene Wolf, ERICH Procedure CPT: Indications: heart failure, afib Cardiac Hx: Technical Quality: Fair Contrast 1: Total Dose (mL): Contrast 2: Total Dose (mL): MEASUREMENTS (Male / Female) Normal Values 2D ECHO LV Diastolic Diameter PLAX 4.9 cm 4.2 - 5.9 / 3.9 - 5.3 cm LV Systolic Diameter PLAX 4.3 cm IVS Diastolic Thickness 1.3 cm 0.6 - 1.0 / 0.6 - 0.9 cm LVPW Diastolic Thickness 1.3 cm 0.6 - 1.0 / 0.6 - 0.9 cm LV Relative Wall Thickness 0.5 RV Internal Dim ED PLAX 3.7 cm LA Systolic Diameter LX 4.6 cm 3.0 - 4.0 / 2.7 - 3.8 cm LV Diastolic Volume MOD BP 119.0 cm??? 67 - 155 / 56 - 104 cm??? LV Systolic Volume MOD BP 97.5 cm??? - / 19 - 49 cm??? LV Ejection Fraction MOD BP 18.1 % >= 55 % LV Cardiac Index MOD BP 946.3 cm???/min???m??? LV Diastolic Volume MOD 4C 84.1 cm??? LV Systolic Volume MOD 4C 81.9 cm??? LV Ejection Fraction MOD 4C 2.7 % LV Cardiac Index MOD 4C 99.7 cm???/min???m??? LV Diastolic Length 4C 8.1 cm LV Systolic Length 4C 7.8 cm LV Diastolic Volume MOD 2C 156.4 cm??? LV Systolic Volume MOD 2C 110.9 cm??? LV Ejection Fraction MOD 2C 29.1 % LV Cardiac Index MOD 2C 2006.6 cm???/min???m??? LV Diastolic Length 2C 9.0 cm LV Systolic Length 2C 8.1 cm LA Volume 156.7 cm??? 18 - 58 / 22 - 52 cm??? LA Volume Index 60.5 cm???/m??? 16 - 28 cm???/m??? M-MODE Aortic Root Diameter MM 3.3 cm LA Systolic Diameter MM 5.7 cm LA Ao Ratio MM 1.7 AV Cusp Separation MM 2.2 cm DOPPLER AV Peak Velocity 101.7 cm/s AV Peak Gradient 4.1 mmHg TR Peak Velocity 169.0 cm/s TR Peak Gradient 11.4 mmHg Right Ventricular Systolic Press 30.9 mmHg FINDINGS Left Ventricle Left ventricular ejection fraction is estimated at 15-20%. Mildly increased septal wall thickness. Severely increased left ventricular systolic volume. Severely decreased left ventricular ejection fraction. Severely reduced global left ventricular systolic function. Right Ventricle Moderate right ventricular dilatation. . Right ventricular systolic pressure within normal limits. Right Atrium Severe right atrial dilatation. Left Atrium Mildly increased left atrial diameter. Severely increased left atrial volume. Moderately increased left atrial area. Mitral Valve Moderate thickening/calcification of the anterior mitral valve leaflet. Severe mitral regurgitation. Posteriorly directed mitral regurgitation jet. No mitral stenosis. Aortic Valve Trileaflet aortic valve. No aortic valve stenosis or regurgitation. Tricuspid Valve Annular dilatation of the tricuspid valve. Severe tricuspid regurgitation. No tricuspid stenosis. Pulmonic Valve Structurally normal pulmonic valve. Mild pulmonic regurgitation. No pulmonic stenosis. Pericardium Small pericardial effusion. Right pleural effusion. Left pleural effusion. Aorta Normal size aortic root and proximal ascending aorta. CONCLUSIONS Four-chamber enlargement with the specifically severe left ventricular dilatation global decrease in contractility estimated ejection fraction of 15- 20%. There is also severe mitral and tricuspid regurgitation but right-sided pressures are not elevated which may reflect decrease in right ventricular dysfunction as well. There is probably a small trace pericardial effusion. There is pleural effusion Previewed by: Dr. Sesar Velasquez MD (Electronically Signed) Final Date: 28 July 2024 12:51
--- NOTE | 2024-07-28 13:05 | XR ---
EXAMINATION TYPE: XR chest 1V portable DATE OF EXAM: 07/28/2024 Comparison: 07/28/2024 Clinical History: 69-year-old male post intubation and OG insertion Findings: ET tube tip is low, approximately 1 cm from the claire. Pullback 2 cm and reassessed at follow-up. NG tube courses below the diaphragm. Heart mild to moderately enlarged. Perihilar and hazy opacities ar e present. Retrocardiac opacity persists. Impression: 1. ET tube tip is low, 1 cm from the claire. Pull back 2 cm and reassess at follow-up. 2. NG tube satisfactory. 3. Ongoing CHF with mild interstitial pulmonary edema and [id number] pleural effusions with ad jacent atelectasis and/or consolidation, left greater than right. [facility], , 07/28/2024 1:03 PM
[2024-07-28] MEDS: HYDROCORTISONE SUCCINATE 100 MG/2 ML VIAL IV STA (13:59)
[2024-07-28] MEDS: PIPERACILLIN-TAZOBACTAM 3.375 GM in SODIUM CHLORIDE 0.9% 100 ML IVPB SCH (13:59)
[2024-07-28 14:43] LABS: INR 2.3 (<1.2)
--- NOTE | 2024-07-28 15:19 | P.HPIM ---
History of Present Illness H&P Date: 07/28/24 Chief Complaint: Altered mental status Patient is a 69-year-old male with a past medical history of prostate cancer and alcohol abuse was brought to ER by EMS after he was found unresponsive on the floor when her neighbor did a wellness check. Patient could not provide any history. Apparently his neighbor last saw him moved a week prior. Patient's sister is at bedside and is able to provide his past medical history. She tried to reach him few times but he usually does not respond immediately due to prior histories of depression and alcohol abuse. Patient was not febrile on admission. Blood pressure went down to 76/59 and heart rate 151 and respiration 20 and pat ient is requiring 5 L oxygen via nasal cannula. Chest x-ray showed cardiomegaly, pulmonary vascular congestion and bilateral pleural effusions. Correlate with BNP for CHF. CT head and cervical spine showed no acute intracranial process. Nonspecific white matter changes likely secondary to chronic small vessel ischemic disease. No evidence of cervical spine fracture. Mild to moderate multilevel degenerative disc disease. Evidence of CHF with anasarca, pulmonary vascular congestion and bilateral pleural effusions. CT abdomen and pelvis CT showed cardiomegaly, anasarca and bilateral pleural effusions and pulmonary vascular congestion correlated with CHF. Hepatic steatosis correlate with elevated liver labs secondary to heart failure. Chest x-ray this morning showed hazy density throughout the right mid and lower lung has increased. Suspect some increasing pleural effusion and density seen with adjacent atelectasis/consolidation. Likely sequela of mild CHF. 2D echocardiogram showed four-chamber enlargement with specifically severe left ventricular dilatation global decrease in contractility estimate ejection fraction of 15 to 20%. There is also severe mitral and tricuspid regurgitation but right sided pressures are not elevated which may reflect decreasing right ventricular dysfunction as well. Small pericardial effusion and there is pleural effusion. EKG showed atrial fibrillation with rapid ventricular response with aberrant conduction. Laboratory data showed WBC 9.6 hemoglobin 13.1 and platelets 119 INR greater than 10 BUN 104 and creatinine 4.62, sodium 139 potassium 3.8 chloride 93 bicarb is 25 and blood sugar 103 lactic acid 8.7 Total bili 9.8 AST 353 ALT 162 and alk phos 92 CK2 243 and troponin 0.759 and proBNP 34,000 and TSH 4.22 urinalysis is negative for infection UDS negative and alcohol level is less than 10 Review of Systems ROS unobtainable: due to mental status Past Medical History Additional Past Medical History / Comment(s): unable to obtain medical history. History of Any Multi-Drug Resistant Organisms: None Reported Additional Past Surgical History / Comment(s): unable to obtain surgical history Smoking Status: Unknown if ever smoked Medications and Allergies Home Medications Medication Instructions Recorded Confirmed Type Unable To Assess [Unable to Assess] 07/27/24 07/27/24 History Allergies Allergy/AdvReac Type Severity Reaction Status Date / Time Unable to Assess Allergy Verified 07/27/24 14:08 Physical Exam Vitals: Vital Signs Temp Pulse Pulse Resp BP Pulse Ox FiO2 07/28/24 09:46 100 07/28/24 09:06 88 L 07/28/24 07:00 116 H 7 L 98/69 91 L 07/28/24 06:45 126 H 28 H 90/73 89 L 07/28/24 06:30 122 H 24 103/77 88 L 07/28/24 06:15 126 H 28 H 89/76 89 L 07/28/24 06:00 122 H 26 H 103/71 93 L 07/28/24 05:45 131 H 32 H 101/73 89 L 07/28/24 05:30 117 H 12 111/28 90 L 07/28/24 05:15 126 H 7 L 111/86 93 L 07/28/24 05:00 108 H 11 L 93/67 92 L 07/28/24 04:45 116 H 17 85/60 89 L 07/28/24 04:30 122 H 17 110/86 89 L 07/28/24 04:15 130 H 19 98/79 90 L 07/28/24 04:00 97.4 F L 129 H 116 H 36 H 93/70 93 L 07/28/24 03:45 125 H 12 85/75 91 L 07/28/24 03:30 141 H 24 91/81 90 L 07/28/24 03:15 125 H 12 94/83 93 L 07/28/24 03:00 129 H 18 109/93 90 L 07/28/24 02:45 152 H 18 96/70 07/28/24 02:30 135 H 24 93 L 07/28/24 02:15 111 H 21 92/25 90 L 07/28/24 02:00 124 H 18 108/88 90 L 07/28/24 01:45 131 H 7 L 120/88 90 L 07/28/24 01:40 126 H 20 120/88 89 L 07/28/24 01:30 137 H 21 129/89 07/28/24 01:15 126 H 8 L 96/75 90 L 07/28/24 01:00 137 H 8 L 87/59 90 L 07/28/24 00:45 134 H 20 99/78 88 L 07/28/24 00:30 140 H 8 L 97/66 91 L 07/28/24 00:15 129 H 21 101/66 93 L 07/28/24 00:03 138 H 24 101/66 93 L 07/28/24 00:00 147 H 129 H 18 99/64 93 L 07/27/24 23:50 126 H 10 L 99/64 95 07/27/24 23:30 97.8 F 133 H 6 L 105/73 96 07/27/24 23:15 141 H 9 L 91 L 07/27/24 23:00 130 H 26 H 91/54 91 L 07/27/24 22:56 97.5 F L 137 H 18 91/54 07/27/24 22:45 120 H 21 95/69 91 L 07/27/24 22:33 98.0 F 124 H 16 84/67 07/27/24 22:30 137 H 18 95/64 90 L 07/27/24 22:15 124 H 20 98/76 92 L 07/27/24 22:10 97.0 F L 140 H 18 103/84 92 L 07/27/24 22:00 26 H 85/57 93 L 07/27/24 21:45 138 H 12 112/83 91 L 07/27/24 21:30 129 H 11 L 88/63 88 L 07/27/24 21:28 97.0 F L 135 H 18 96/81 92 L 07/27/24 21:15 140 H 15 94/84 81 L 07/27/24 21:00 133 H 17 80/62 83 L 07/27/24 20:45 138 H 17 94/58 87 L 07/27/24 20:35 97.5 F L 125 H 16 97/62 07/27/24 20:30 137 H 19 102/72 89 L 07/27/24 20:23 93 L 07/27/24 20:16 135 H 18 102/72 07/27/24 20:15 97.3 F L 134 H 15 102/72 07/27/24 20:10 97.3 F L 126 H 16 105/80 07/27/24 20:00 135 H 17 95/64 07/27/24 19:45 165 H 19 70/24 83 L 07/27/24 19:41 158 H 16 94/64 07/27/24 19:30 140 H 11 L 93/79 07/27/24 19:15 149 H 15 94/68 07/27/24 19:00 151 H 15 107/73 96 07/27/24 18:45 137 H 15 110/80 95 07/27/24 18:30 144 H 15 97/79 97 07/27/24 18:21 144 H 22 105/81 07/27/24 18:18 128 H 22 99/73 97 07/27/24 18:15 138 H 16 101/89 07/27/24 18:05 71/24 07/27/24 18:00 96.0 F L 137 H 17 76/59 07/27/24 17:45 111/73 07/27/24 17:30 105/88 07/27/24 17:15 115/89 07/27/24 16:45 147 H 62/31 93 L 07/27/24 16:30 113/94 07/27/24 16:15 113/94 07/27/24 16:00 149 H 124/111 07/27/24 15:45 152 H 119/96 07/27/24 15:30 168 H 17 112/79 07/27/24 15:01 149 H 12 113/68 84 L 07/27/24 14:26 96.0 F L 07/27/24 14:09 154 H 18 130/92 84 L Intake and Output 07/27/24 07/28/24 07/28/24 22:59 06:59 14:59 Intake Total 231.75 1515.167 101.279 Output Total 305 15 Balance 231.75 1210.167 86.279 Intake: Intake, IV Titration 6.75 1296.167 101.279 Amount Dexmedetomidine/0.9% NaCl 1.279 (Pmx) 400 mcg In Empty Bag 1 bag @ 0.2 MCG/KG/HR 5.48 mls/hr IV .[id number] [facility] Rx#:[id number] Diltiazem 125 mg In 6.75 96.167 Sodium Chloride 0.9% 100 ml @ 5 MG/HR 5 mls/hr IV .Q24H [facility] Rx#:[id number] Sodium Chloride 0.9% 1, 700 100 000 ml @ 100 mls/hr IV . Q10H [facility] Rx#:[id number] Sodium Chloride 0.9% 500 500 ml 500 ml @ 999 mls/hr IV .Q31M [facility] Rx#:[id number] Blood Product 225 219 Ffp 24 Pher Acda Cnt1 225 Unit [id number] Ffp 24 Pher Acda Cnt1 0 219 Unit [id number] Output: Urine 305 15 Other: Voiding Method Indwelling Catheter Weight 109.6 kg PHYSICAL EXAMINATION: Patient is lying in the bed. Awake. Confused and lethargic and could not communicate. HEENT: Normocephalic. Neck is supple. Pupils reactive. Nostrils clear. Oral cavity is moist. Neck reveals no JVD, carotid bruits, or thyromegaly. CHEST EXAMINATION: Trachea is central. Symmetrical expansion. Bibasilar diminished sounds. No wheezing. CARDIAC: Normal S1, S2 with no gallops. Systolic murmur. Irregularly irregular rhythm. ABDOMEN: Soft. Bowel sounds normal. No organomegaly. No abdominal bruits. Extremities: Bilateral lower extremity 3+ edema. Mild cyanosis Neurologically patient is confused and obtunded. No gross focal deficits noted Skin: No rash or skin lesions except above. Psychiatric: Could not be assessed completely Musculoskeletal: No joint swelling or deformity. Results CBC & Chem 7: 07/28/24 05:29 07/28/24 14:15 Labs: Abnormal Lab Results - Last 24 Hours (Table) 07/27/24 07/27/24 07/27/24 Range/Units 14:19 14:19 14:19 WBC (3.8-10.6) k/uL RBC 4.21 L (4.30-5.90) m/uL Hgb (13.0-17.5) gm/dL Hct (39.0-53.0) % MCHC (31.0-37.0) g/dL Plt Count 119 L (150-450) k/uL Neutrophils # (1.3-7.7) k/uL Neutrophils # (Manual) 8.06 H (1.3-7.7) k/uL Lymphocytes # (1.0-4.8) k/uL PT 113.8 H (10.0-12.5) sec INR >10.0 H* (<1.2) APTT 37.2 H (22.0-30.0) sec Potassium (3.5-5.1) mmol/L Chloride (98-107) mmol/L BUN (9-20) mg/dL Creatinine (0.66-1.25) mg/dL Glucose (74-99) mg/dL POC Glucose (mg/dL) (70-110) mg/dL Plasma Lactic Acid Jose (0.7-2.0) mmol/L Total Bilirubin (0.2-1.3) mg/dL AST (17-59) U/L ALT (4-49) U/L Creatine Kinase (55-170) U/L Troponin I (0.000-0.034) ng/mL Total Protein (6.3-8.2) g/dL Albumin (3.5-5.0) g/dL Urine Protein 1+ H (Negative) Urine Ketones Trace H (Negative) Urine Blood Small H (Negative) Urine Bilirubin 1+ H (Negative) Urine RBC 7 H (0-5) /hpf Urine Bacteria Occasional H (None) /hpf Hyaline Casts 13 H (0-2) /lpf Urine Mucus Rare H (None) /hpf 07/27/24 07/27/24 07/27/24 Range/Units 14:19 14:19 14:19 WBC (3.8-10.6) k/uL RBC (4.30-5.90) m/uL Hgb (13.0-17.5) gm/dL Hct (39.0-53.0) % MCHC (31.0-37.0) g/dL Plt Count (150-450) k/uL Neutrophils # (1.3-7.7) k/uL Neutrophils # (Manual) (1.3-7.7) k/uL Lymphocytes # (1.0-4.8) k/uL PT (10.0-12.5) sec INR (<1.2) APTT (22.0-30.0) sec Potassium (3.5-5.1) mmol/L Chloride 93 L (98-107) mmol/L BUN 104 H* (9-20) mg/dL Creatinine 4.62 H (0.66-1.25) mg/dL Glucose 103 H (74-99) mg/dL POC Glucose (mg/dL) (70-110) mg/dL Plasma Lactic Acid Jose 8.7 H* (0.7-2.0) mmol/L Total Bilirubin 9.8 H (0.2-1.3) mg/dL AST 353 H (17-59) U/L ALT 162 H (4-49) U/L Creatine Kinase 2243 H* (55-170) U/L Troponin I 0.759 H* (0.000-0.034) ng/mL Total Protein 5.7 L (6.3-8.2) g/dL Albumin 3.4 L (3.5-5.0) g/dL Urine Protein (Negative) Urine Ketones (Negative) Urine Blood (Negative) Urine Bilirubin (Negative) Urine RBC (0-5) /hpf Urine Bacteria (None) /hpf Hyaline Casts (0-2) /lpf Urine Mucus (None) /hpf 07/27/24 07/27/24 07/27/24 Range/Units 19:07 19:07 19:07 WBC (3.8-10.6) k/uL RBC (4.30-5.90) m/uL Hgb (13.0-17.5) gm/dL Hct (39.0-53.0) % MCHC (31.0-37.0) g/dL Plt Count (150-450) k/uL Neutrophils # (1.3-7.7) k/uL Neutrophils # (Manual) (1.3-7.7) k/uL Lymphocytes # (1.0-4.8) k/uL PT 82.2 H (10.0-12.5) sec INR 8.3 H* (<1.2) APTT 41.3 H (22.0-30.0) sec Potassium (3.5-5.1) mmol/L Chloride (98-107) mmol/L BUN (9-20) mg/dL Creatinine (0.66-1.25) mg/dL Glucose (74-99) mg/dL POC Glucose (mg/dL) (70-110) mg/dL Plasma Lactic Acid Jose 6.2 H* (0.7-2.0) mmol/L Total Bilirubin (0.2-1.3) mg/dL AST (17-59) U/L ALT (4-49) U/L Creatine Kinase (55-170) U/L Troponin I 0.967 H* (0.000-0.034) ng/mL Total Protein (6.3-8.2) g/dL Albumin (3.5-5.0) g/dL Urine Protein (Negative) Urine Ketones (Negative) Urine Blood (Negative) Urine Bilirubin (Negative) Urine RBC (0-5) /hpf Urine Bacteria (None) /hpf Hyaline Casts (0-2) /lpf Urine Mucus (None) /hpf 07/27/24 07/27/24 07/27/24 Range/Units 19:07 21:41 23:13 WBC (3.8-10.6) k/uL RBC (4.30-5.90) m/uL Hgb (13.0-17.5) gm/dL Hct (39.0-53.0) % MCHC (31.0-37.0) g/dL Plt Count (150-450) k/uL Neutrophils # (1.3-7.7) k/uL Neutrophils # (Manual) (1.3-7.7) k/uL Lymphocytes # (1.0-4.8) k/uL PT (10.0-12.5) sec INR (<1.2) APTT (22.0-30.0) sec Potassium (3.5-5.1) mmol/L Chloride 96 L (98-107) mmol/L BUN 109 H* (9-20) mg/dL Creatinine 4.14 H (0.66-1.25) mg/dL Glucose 108 H (74-99) mg/dL POC Glucose (mg/dL) 112 H (70-110) mg/dL Plasma Lactic Acid Jose 3.5 H* (0.7-2.0) mmol/L Total Bilirubin 9.1 H (0.2-1.3) mg/dL AST 359 H (17-59) U/L ALT 151 H (4-49) U/L Creatine Kinase (55-170) U/L Troponin I (0.000-0.034) ng/mL Total Protein 5.6 L (6.3-8.2) g/dL Albumin 3.2 L (3.5-5.0) g/dL Urine Protein (Negative) Urine Ketones (Negative) Urine Blood (Negative) Urine Bilirubin (Negative) Urine RBC (0-5) /hpf Urine Bacteria (None) /hpf Hyaline Casts (0-2) /lpf Urine Mucus (None) /hpf 07/28/24 07/28/24 07/28/24 Range/Units 05:29 05:29 05:29 WBC 11.4 H (3.8-10.6) k/uL RBC 3.90 L (4.30-5.90) m/uL Hgb 11.7 L (13.0-17.5) gm/dL Hct 37.7 L (39.0-53.0) % MCHC 30.9 L (31.0-37.0) g/dL Plt Count 119 L (150-450) k/uL Neutrophils # 9.5 H (1.3-7.7) k/uL Neutrophils # (Manual) (1.3-7.7) k/uL Lymphocytes # 0.9 L (1.0-4.8) k/uL PT 29.3 H (10.0-12.5) sec INR 3.0 H (<1.2) APTT (22.0-30.0) sec Potassium 3.2 L (3.5-5.1) mmol/L Chloride (98-107) mmol/L BUN 113 H* (9-20) mg/dL Creatinine 4.25 H (0.66-1.25) mg/dL Glucose 118 H (74-99) mg/dL POC Glucose (mg/dL) (70-110) mg/dL Plasma Lactic Acid Jose (0.7-2.0) mmol/L Total Bilirubin 9.1 H (0.2-1.3) mg/dL AST 343 H (17-59) U/L ALT 164 H (4-49) U/L Creatine Kinase (55-170) U/L Troponin I (0.000-0.034) ng/mL Total Protein 5.5 L (6.3-8.2) g/dL Albumin 3.2 L (3.5-5.0) g/dL Urine Protein (Negative) Urine Ketones (Negative) Urine Blood (Negative) Urine Bilirubin (Negative) Urine RBC (0-5) /hpf Urine Bacteria (None) /hpf Hyaline Casts (0-2) /lpf Urine Mucus (None) /hpf 07/28/24 07/28/24 07/28/24 Range/Units 05:29 05:29 05:47 WBC (3.8-10.6) k/uL RBC (4.30-5.90) m/uL Hgb (13.0-17.5) gm/dL Hct (39.0-53.0) % MCHC (31.0-37.0) g/dL Plt Count (150-450) k/uL Neutrophils # (1.3-7.7) k/uL Neutrophils # (Manual) (1.3-7.7) k/uL Lymphocytes # (1.0-4.8) k/uL PT (10.0-12.5) sec INR (<1.2) APTT (22.0-30.0) sec Potassium (3.5-5.1) mmol/L Chloride (98-107) mmol/L BUN (9-20) mg/dL Creatinine (0.66-1.25) mg/dL Glucose (74-99) mg/dL POC Glucose (mg/dL) 121 H (70-110) mg/dL Plasma Lactic Acid Jose 2.5 H* (0.7-2.0) mmol/L Total Bilirubin (0.2-1.3) mg/dL AST (17-59) U/L ALT (4-49) U/L Creatine Kinase 1264 H* (55-170) U/L Troponin I (0.000-0.034) ng/mL Total Protein (6.3-8.2) g/dL Albumin (3.5-5.0) g/dL Urine Protein (Negative) Urine Ketones (Negative) Urine Blood (Negative) Urine Bilirubin (Negative) Urine RBC (0-5) /hpf Urine Bacteria (None) /hpf Hyaline Casts (0-2) /lpf Urine Mucus (None) /hpf 07/28/24 Range/Units 09:00 WBC (3.8-10.6) k/uL RBC (4.30-5.90) m/uL Hgb (13.0-17.5) gm/dL Hct (39.0-53.0) % MCHC (31.0-37.0) g/dL Plt Count (150-450) k/uL Neutrophils # (1.3-7.7) k/uL Neutrophils # (Manual) (1.3-7.7) k/uL Lymphocytes # (1.0-4.8) k/uL PT (10.0-12.5) sec INR (<1.2) APTT (22.0-30.0) sec Potassium (3.5-5.1) mmol/L Chloride (98-107) mmol/L BUN (9-20) mg/dL Creatinine (0.66-1.25) mg/dL Glucose (74-99) mg/dL POC Glucose (mg/dL) (70-110) mg/dL Plasma Lactic Acid Jose 3.0 H* (0.7-2.0) mmol/L Total Bilirubin (0.2-1.3) mg/dL AST (17-59) U/L ALT (4-49) U/L Creatine Kinase (55-170) U/L Troponin I (0.000-0.034) ng/mL Total Protein (6.3-8.2) g/dL Albumin (3.5-5.0) g/dL Urine Protein (Negative) Urine Ketones (Negative) Urine Blood (Negative) Urine Bilirubin (Negative) Urine RBC (0-5) /hpf Urine Bacteria (None) /hpf Hyaline Casts (0-2) /lpf Urine Mucus (None) /hpf Thrombosis Risk Factor Assmnt - DVT/VTE Prophylaxis DVT/VTE Prophylaxis: Mechanical Prophylaxis ordered - Choose All That Apply Each Factor Represents 1 point: Medical pt on bed rest, Obesity (BMI >25), Swollen legs (current) Each Risk Factor Represents 2 Points: Age 61-74 years Thrombosis Risk Factor Assessment Total Risk Factor Score: 5 Thrombosis Risk Factor Assessment Level: High Risk Assessment and Plan Assessment: Acute metabolic encephalopathy. Patient was found with facedown at home. New onset atrial fibrillation with rapid ventricular response Acute hypoxic respiratory failure secondary to CHF and fluid overload/anasarca. Acute CHF with systolic dysfunction ejection fraction 15 to 20% alcohol use disorder Elevated liver enzymes and hyperbilirubinemia Coagulopathy likely secondary to alcoholic liver disease with INR greater than 10 on admission Acute rhabdomyolysis Elevated troponin level likely secondary to A-fib with RVR and rhabdomyolysis Acute kidney injury secondary to ATN and rhabdomyolysis Lactic acidosis History of prostate cancer currently not on any medications GI prophylaxis Plan: Patient is currently in the MICU. Patient is on oxygen via nasal cannula. Cardizem drip for heart rate control. Continued on empiric antibiotics with Zosyn. Patient was given a dose of IV Lasix and is planning for Lasix drip and also started on pressor support with Levophed.. Also started on Diprivan drip. Follow-up liver enzymes and patient was given vitamin K in the ER. Follow-up INR level. Follow-up electrolytes. Nephrology and critical care team and cardiology is on board. Prognosis is guarded at this time. Discussed with patient and sister at bedside in detail. Time with Patient: Greater than 30
[2024-07-28] MEDS: POTASSIUM CHLORIDE 20 MEQ in WATER FOR INJECTION 1 100ML.BAG IVPB ONE ×2 (16:17→22:59)
[2024-07-28 18:04] LABS: Glucose,Whole Blood 150 mg/dL (70-110)
[2024-07-28] MEDS: POTASSIUM CHLORIDE 10 MEQ in WATER FOR INJECTION 1 100ML.BAG IVPB ONE (18:17)
[2024-07-28] MEDS: DOBUTamine DRIP 500 MG in DEXTROSE/WATER 1 250ML.BAG IV SCH (19:57)
[2024-07-28] MEDS: CHLORHEXIDINE GLUCONATE 15 ML CUP MUCOUS MEM SCH (20:25)
--- NOTE | 2024-07-28 20:56 | OP ---
OPERATIVE REPORT DATE OF SERVICE : PROCEDURE PERFORMED: Placement of the right femoral triple-lumen catheter. PREOPERATIVE DIAGNOSES: 1. Acute hypoxic respiratory failure and hypotension requiring intubation and mechanical ventilation and persistent hypotension. 2. Coagulopathy and elevated INR. POSTOPERATIVE DIAGNOSES: 1. Acute hypoxic respiratory failure and hypotension requiring intubation and mechanical ventilation and persistent hypotension. 2. Coagulopathy and elevated INR. ANESTHESIA USED: None deployed. DESCRIPTION OF PROCEDURE: The right groin was prepared in a sterile fashion. Drapes were applied. The right femoral vein was easily cannulated, a guidewire was placed. The area around the guidewire was dilated, triple-lumen catheter was inserted over the guidewire, and the guidewire was removed. Good blood flow noted in the 3 different ports of the triple- lumen catheter, no complications. Line was secured using 3-0 silk suture. MMODL / IJN: [id number] /
--- NOTE | 2024-07-28 21:05 | OP ---
OPERATIVE REPORT DATE OF SERVICE : PROCEDURE: Placement of a right femoral arterial line. PREOPERATIVE DIAGNOSIS: Acute hypoxic respiratory failure and hypotension. POSTOPERATIVE DIAGNOSIS: Acute hypoxic respiratory failure and hypotension. ANESTHESIA USED: None deployed. PROCEDURE DESCRIPTION: The right groin was prepared in a sterile fashion. Drapes were applied. The right femoral artery was palpated, easily cannulated, and a guidewire was placed. A femoral arterial line was threaded over the guidewire, the guidewire was removed. Good blood flow, good waveform noted, no complications. Line was secured using 3-0 silk sutures. MMODL / IJN: [id number] /
--- NOTE | 2024-07-28 21:11 | OP ---
OPERATIVE REPORT DATE OF SERVICE : PROCEDURE PERFORMED: Intubation. PREOPERATIVE DIAGNOSES: 1. Impending respiratory failure. 2. Acute congestive heart failure. 3. Acute hypoxic respiratory failure. POSTOPERATIVE DIAGNOSES: 1. Impending respiratory failure. 2. Acute congestive heart failure. 3. Acute hypoxic respiratory failure. ANESTHESIA USED: The patient received 10 mg of Nimbex, 4 mg of morphine, and 50 mg of propofol. DESCIRPTION OF PROCEDURE: The patient was placed in the supine position, the medications were given, a GlideScope was used, the tongue was depressed and visualized the vocal cords. Then, a size 8.0 endotracheal tube was inserted through the vocal cords. Then, the stylet was removed, cuff was inflated, there was a color change, tube was secured and connected to mechanical ventilation. Chest x-ray was done postoperatively and adjustment of the endotracheal tube was done after the chest x-ray. It was moved up about 2 cm above the claire after the procedure. The procedure was well tolerated, no complications, and adequate placement of the tube was noted. MMODL / IJN: [id number] /
[2024-07-29 00:33] LABS: Glucose,Whole Blood 154 mg/dL (70-110)
[2024-07-29] MEDS: DEXTROSE 5% IN WATER 100 ML with AMIODARONE 150 MG IV ONE (00:47)
[2024-07-29] MEDS: AMIODARONE 360 MG in DEXTROSE 5% IN WATER 200 ML IV ONE (01:23)
[2024-07-29 05:34] LABS: Glucose,Whole Blood 202 mg/dL (70-110)
[2024-07-29 05:44] LABS: HCT 35.3 % (39.0-53.0); HGB 11.3 gm/dL (13.0-17.5); Hypochromasia Moderate; MCH 30.8 pg (25.0-35.0); MCHC 32.1 g/dL (31.0-37.0); MCV 95.9 fL (80.0-100.0); Mean Platelet Volume 12.4; Platelet Count 103 k/uL (150-450); RBC 3.69 m/uL (4.30-5.90); RDW 14.9 % (11.5-15.5); WBC 8.6 k/uL (3.8-10.6)
[2024-07-29 05:48] LABS: Potassium 3.5 mmol/L (3.5-5.1)
[2024-07-29 05:49] LABS: ABG Base Excess 3.4 mmol/L; ABG HCO3 26 mmol/L (21-25); ABG Oxygen Saturation 94.4 % (94-97); ABG PCO2 30 mmHg (35-45); ABG PH 7.54 (7.35-7.45); ABG PO2 70 mmHg (83-108); ABG TCO2 26 mmol/L (19-24); Allen Test Performed? Yes
[2024-07-29 06:27] LABS: ALT 176 U/L (4-49); AST 355 U/L (17-59); African American GFR (CKD) 15 (>60 ml/min/1.73 sqM); Alkaline Phosphatase 83 U/L (38-126); Anion Gap 12 mmol/L; Calcium 8.4 mg/dL (8.4-10.2); Carbon Dioxide 24 mmol/L (22-30); Chloride 101 mmol/L (98-107); Glucose 202 mg/dL (74-99); Non-African American GFR(CKD) 13 (>60 ml/min/1.73 sqM); Sodium 137 mmol/L (137-145); Total Bilirubin 9.5 mg/dL (0.2-1.3); Total Protein 5.3 g/dL (6.3-8.2)
[2024-07-29 06:37] LABS: Blood Urea Nitrogen 122 mg/dL (9-20)
[2024-07-29] MEDS: AMIODARONE 450 MG in DEXTROSE 5% IN WATER 250 ML IV SCH (06:49)
[2024-07-29] MEDS: POTASSIUM BICARBONATE/CIT AC 20 MEQ TABLET.EFF NG-TUBE ONE (06:55)
--- NOTE | 2024-07-29 07:52 | XR ---
EXAMINATION TYPE: XR chest 1V portable DATE OF EXAM: 07/29/2024 COMPARISON: 07/28/2024 HISTORY: SOB, Follow Up FINDINGS: Indwelling tubes and catheters are unchanged. No change in bibasilar opacities. Stable appearance of the cardio-mediastinal structures at this time. Pleural effusion unchanged. IMPRESSION: 1. Stable portable chest. Clinical correlation and follow up until resolution is recommended. [facility], , 07/29/2024 7:49 AM
[2024-07-29 08:25] LABS: Lymphocytes # (M) 0.52 k/uL (1.0-4.8); Monocytes # (M) 0.43 k/uL (0-1.0); Neutrophils # (M) 7.74 k/uL (1.3-7.7); Neutrophils % (M) 90 %; Nucleated Red Blood Cells 0 /100 WBC (0-0); Total Cells Counted 200
--- NOTE | 2024-07-29 09:57 | P.PN ---
Subjective Progress Note Date: 07/29/24 Patient is a 69-year-old male who is currently admitted with rhabdomyolysis, acute kidney injury, and congestive heart failure. Yesterday the patient decompensated and was subsequently intubated and lined for escalation of care. Patient became hypotensive and was unable to protect his airway. Patient is now on IV Lasix drip as well as multiple vasopressors. Cardizem was switched to IV amiodarone. Echocardiogram shows reduced LV function of 15 to 20% with four- chamber dilation. GENERAL: Ill-appearing, sedated on ventilator NECK: Supple without JVD or thyromegaly. LUNGS: Breath sounds coarse to auscultation bilaterally. Respiration equal and unlabored. Bilateral rhonchi. HEART: Irregular rate and rhythm without murmurs, rubs or gallops. S1 and S2 heard. Notably tachycardic. EXTREMITIES: +2 edema. No clubbing or cyanosis. Peripheral pulses intact and strong. TELEMETRY: Atrial fibrillation with a heart rate in the 120s LABS: WBC 8.6, hemoglobin 11.3, hematocrit 35.3, platelet 103, sodium 137, potassium 3.5, BUN 122, creatinine 4.32, AST 355, ALT 176 IMPRESSION: Atrial fibrillation with RVR Elevated troponins, in the setting of rhabdomyolysis and atrial fibrillation Systolic heart failure exacerbation Cardiomyopathy, unspecified, EF 15 to 20% Rhabdomyolysis Acute kidney injury Acute hypoxic respiratory failure Elevated liver enzymes History of EtOH abuse History of prostate cancer PLAN: Continue IV amiodarone Continue supportive treatment Anticoagulation contraindicated Further recommendations to be based upon clinical course. Poor prognosis. I am dictating on behalf of Dr Wellington Maria's history/physical and assessment/plan. Objective - Vital Signs Vital signs: Vital Signs Temp 98.1 F 07/29/24 08:00 Pulse 124 H 07/29/24 09:30 Resp 22 07/29/24 09:30 BP 87/69 07/29/24 09:30 Pulse Ox 93 L 07/29/24 09:30 FiO2 30 07/29/24 09:15 Intake & Output 07/28/24 07/29/24 07/29/24 18:59 06:59 18:59 Intake Total 2294.559 1737.378 153.097 Output Total 240 675 30 Balance 2054.559 1062.378 123.097 Weight 109.6 kg 112.3 kg Intake: IV 1133 1191 43 0.9 NACL 315 255 15 0.9 NACL Bolus 800 Piperacillin-Tazobactam 3 100 25 .375 gm In Sodium Chloride 0.9% 100 ml @ 25 mls/hr IVPB Q12HR [facility] Rx #:[id number] Potassium Chloride 10 meq 300 In Water For Injection 1 100ml.bag @ 100 mls/hr IVPB Q1H [facility] Rx#: [id number] Potassium Chloride 20 meq 300 In Water For Injection 1 100ml.bag @ 50 mls/hr IVPB ONCE ONE Rx#: [id number] Potassium Chloride 20 meq 200 In Water For Injection 1 100ml.bag @ 50 mls/hr IVPB ONCE ONE Rx#: [id number] arterial line 18 36 3 Intake, IV Titration 732.559 546.378 110.097 Amount Dexmedetomidine/0.9% NaCl 20.322 (Pmx) 400 mcg In Empty Bag 1 bag @ 0.2 MCG/KG/HR 5.48 mls/hr IV .[id number] [facility] Rx#:[id number] Diltiazem 125 mg In 125 8 Sodium Chloride 0.9% 100 ml @ 5 MG/HR 5 mls/hr IV .Q24H [facility] Rx#:[id number] Furosemide 100 mg In 10 Sodium Chloride 0.9% 90 ml @ 10 MG/HR 10 mls/hr IV .Q10H [facility] Rx#: [id number] Furosemide 100 mg In 6.833 93.167 Sodium Chloride 0.9% 90 ml @ 5 MG/HR 5 mls/hr IV .Q20H [facility] Rx#:[id number] Norepinephrine 32 mg In 84.162 196.327 54.339 Sodium Chloride 0.9% 218 ml @ 0.03 MCG/KG/MIN 1. 541 mls/hr IV .Q24H [facility] Rx#:[id number] Norepinephrine 4 mg In 11.970 Sodium Chloride 0.9% 250 ml @ 0.03 MCG/KG/MIN 12. 527 mls/hr IV .[id number] [facility] Rx#:[id number] Piperacillin-Tazobactam 3 100 .375 gm In Sodium Chloride 0.9% 100 ml @ 25 mls/hr IVPB Q12HR [facility] Rx #:[id number] Potassium Chloride 10 meq 100 In Water For Injection 1 100ml.bag @ 100 mls/hr IVPB ONCE ONE Rx#: [id number] Potassium Chloride 20 meq 100 In Water For Injection 1 100ml.bag @ 50 mls/hr IVPB ONCE ONE Rx#: [id number] Sodium Chloride 0.9% 1, 100 000 ml @ 10 mls/hr IV . Q24H [facility] Rx#:[id number] Vasopressin 20 unit In 2.346 48.884 Sodium Chloride 0.9% 50 ml @ 0.03 UNITS/MIN 4.59 mls/hr IV .Q11H7M [facility] Rx# :[id number] propofoL 1,000 mg In 81.926 200.000 45.758 Empty Bag 1 bag @ 15 MCG/ KG/MIN 9.864 mls/hr IV . Q10H9M [facility] Rx#:[id number] Blood Product 429 Ffp 24 Pher Acda Unit 216 [id number] Ffp 24 Pher Acda Unit 213 [id number] Output: Urine 240 675 30 Other: Voiding Method Indwelling Catheter Indwelling Catheter Indwelling Catheter ABP, PAP, CO, CI - Last Documented Arterial Blood Pressure 90/59 - Labs CBC & Chem 7: 07/29/24 05:30 07/29/24 05:30 Labs: Abnormal Lab Results - Last 24 Hours (Table) 07/28/24 07/28/24 07/28/24 Range/Units 12:27 12:33 14:15 RBC (4.30-5.90) m/uL Hgb (13.0-17.5) gm/dL Hct (39.0-53.0) % Plt Count (150-450) k/uL Neutrophils # (Manual) (1.3-7.7) k/uL Lymphocytes # (Manual) (1.0-4.8) k/uL PT (10.0-12.5) sec INR (<1.2) ABG pH 7.47 H (7.35-7.45) ABG pCO2 (35-45) mmHg ABG pO2 73 L (83-108) mmHg ABG HCO3 26 H (21-25) mmol/L ABG Total CO2 27 H (19-24) mmol/L Hemoglobin 12.8 L (13.0-17.5) gm/dL Potassium 3.4 L (3.5-5.1) mmol/L BUN (9-20) mg/dL Creatinine (0.66-1.25) mg/dL Glucose (74-99) mg/dL POC Glucose (mg/dL) (70-110) mg/dL Plasma Lactic Acid Jose 3.7 H* (0.7-2.0) mmol/L Total Bilirubin (0.2-1.3) mg/dL AST (17-59) U/L ALT (4-49) U/L Total Protein (6.3-8.2) g/dL Albumin (3.5-5.0) g/dL 07/28/24 07/28/24 07/29/24 Range/Units 14:15 18:03 00:31 RBC (4.30-5.90) m/uL Hgb (13.0-17.5) gm/dL Hct (39.0-53.0) % Plt Count (150-450) k/uL Neutrophils # (Manual) (1.3-7.7) k/uL Lymphocytes # (Manual) (1.0-4.8) k/uL PT 23.0 H (10.0-12.5) sec INR 2.3 H (<1.2) ABG pH (7.35-7.45) ABG pCO2 (35-45) mmHg ABG pO2 (83-108) mmHg ABG HCO3 (21-25) mmol/L ABG Total CO2 (19-24) mmol/L Hemoglobin (13.0-17.5) gm/dL Potassium (3.5-5.1) mmol/L BUN (9-20) mg/dL Creatinine (0.66-1.25) mg/dL Glucose (74-99) mg/dL POC Glucose (mg/dL) 150 H 154 H (70-110) mg/dL Plasma Lactic Acid Jose (0.7-2.0) mmol/L Total Bilirubin (0.2-1.3) mg/dL AST (17-59) U/L ALT (4-49) U/L Total Protein (6.3-8.2) g/dL Albumin (3.5-5.0) g/dL 07/29/24 07/29/24 07/29/24 Range/Units 05:30 05:30 05:32 RBC 3.69 L (4.30-5.90) m/uL Hgb 11.3 L (13.0-17.5) gm/dL Hct 35.3 L (39.0-53.0) % Plt Count 103 L (150-450) k/uL Neutrophils # (Manual) 7.74 H (1.3-7.7) k/uL Lymphocytes # (Manual) 0.52 L (1.0-4.8) k/uL PT (10.0-12.5) sec INR (<1.2) ABG pH (7.35-7.45) ABG pCO2 (35-45) mmHg ABG pO2 (83-108) mmHg ABG HCO3 (21-25) mmol/L ABG Total CO2 (19-24) mmol/L Hemoglobin (13.0-17.5) gm/dL Potassium (3.5-5.1) mmol/L BUN 122 H* (9-20) mg/dL Creatinine 4.36 H (0.66-1.25) mg/dL Glucose 202 H (74-99) mg/dL POC Glucose (mg/dL) 202 H (70-110) mg/dL Plasma Lactic Acid Jose (0.7-2.0) mmol/L Total Bilirubin 9.5 H (0.2-1.3) mg/dL AST 355 H (17-59) U/L ALT 176 H (4-49) U/L Total Protein 5.3 L (6.3-8.2) g/dL Albumin 3.0 L (3.5-5.0) g/dL 07/29/24 Range/Units 05:44 RBC (4.30-5.90) m/uL Hgb (13.0-17.5) gm/dL Hct (39.0-53.0) % Plt Count (150-450) k/uL Neutrophils # (Manual) (1.3-7.7) k/uL Lymphocytes # (Manual) (1.0-4.8) k/uL PT (10.0-12.5) sec INR (<1.2) ABG pH 7.54 H (7.35-7.45) ABG pCO2 30 L (35-45) mmHg ABG pO2 70 L (83-108) mmHg ABG HCO3 26 H (21-25) mmol/L ABG Total CO2 26 H (19-24) mmol/L Hemoglobin 12.5 L (13.0-17.5) gm/dL Potassium (3.5-5.1) mmol/L BUN (9-20) mg/dL Creatinine (0.66-1.25) mg/dL Glucose (74-99) mg/dL POC Glucose (mg/dL) (70-110) mg/dL Plasma Lactic Acid Jose (0.7-2.0) mmol/L Total Bilirubin (0.2-1.3) mg/dL AST (17-59) U/L ALT (4-49) U/L Total Protein (6.3-8.2) g/dL Albumin (3.5-5.0) g/dL Microbiology - Last 24 Hours (Table) 07/28/24 15:35 Gram Stain - Preliminary Sputum
--- NOTE | 2024-07-29 10:23 | P.PN ---
Subjective Patient is seen in follow-up for acute kidney injury. Creatinine stable. Currently on amiodarone drip for A-fib. Also on Levophed, vasopressin, d obutamine and Lasix drip. Urine output 30 to 40 cc an hour. Intubated. Vital signs -in A-fib. On vasopressor support. General: Resting in bed. HEENT: Intubated. LUNGS: Scattered rhonchi. HEART: Irregular rate and rhythm. ABDOMEN: No distention. EXTREMITITES: 2+ edema. Objective - Vital Signs Vital signs: Vital Signs Temp 98.1 F 07/29/24 08:00 Pulse 124 H 07/29/24 09:30 Resp 22 07/29/24 09:30 BP 87/69 07/29/24 09:30 Pulse Ox 93 L 07/29/24 09:30 FiO2 30 07/29/24 09:15 Intake & Output 07/28/24 07/29/24 07/29/24 18:59 06:59 18:59 Intake Total 2294.559 1737.378 238.729 Output Total 240 675 70 Balance 2054.559 1062.378 168.729 Weight 109.6 kg 112.3 kg Intake: IV 1133 1191 86 0.9 NACL 315 255 30 0.9 NACL Bolus 800 Piperacillin-Tazobactam 3 100 50 .375 gm In Sodium Chloride 0.9% 100 ml @ 25 mls/hr IVPB Q12HR [facility] Rx #:[id number] Potassium Chloride 10 meq 300 In Water For Injection 1 100ml.bag @ 100 mls/hr IVPB Q1H [facility] Rx#: [id number] Potassium Chloride 20 meq 300 In Water For Injection 1 100ml.bag @ 50 mls/hr IVPB ONCE ONE Rx#: [id number] Potassium Chloride 20 meq 200 In Water For Injection 1 100ml.bag @ 50 mls/hr IVPB ONCE ONE Rx#: [id number] arterial line 18 36 6 Intake, IV Titration 732.559 546.378 152.729 Amount Dexmedetomidine/0.9% NaCl 20.322 (Pmx) 400 mcg In Empty Bag 1 bag @ 0.2 MCG/KG/HR 5.48 mls/hr IV .[id number] [facility] Rx#:[id number] Diltiazem 125 mg In 125 8 Sodium Chloride 0.9% 100 ml @ 5 MG/HR 5 mls/hr IV .Q24H [facility] Rx#:[id number] Furosemide 100 mg In 20 Sodium Chloride 0.9% 90 ml @ 10 MG/HR 10 mls/hr IV .Q10H [facility] Rx#: [id number] Furosemide 100 mg In 6.833 93.167 Sodium Chloride 0.9% 90 ml @ 5 MG/HR 5 mls/hr IV .Q20H [facility] Rx#:[id number] Norepinephrine 32 mg In 84.162 196.327 86.971 Sodium Chloride 0.9% 218 ml @ 0.03 MCG/KG/MIN 1. 541 mls/hr IV .Q24H [facility] Rx#:[id number] Norepinephrine 4 mg In 11.970 Sodium Chloride 0.9% 250 ml @ 0.03 MCG/KG/MIN 12. 527 mls/hr IV .[id number] [facility] Rx#:[id number] Piperacillin-Tazobactam 3 100 .375 gm In Sodium Chloride 0.9% 100 ml @ 25 mls/hr IVPB Q12HR [facility] Rx #:[id number] Potassium Chloride 10 meq 100 In Water For Injection 1 100ml.bag @ 100 mls/hr IVPB ONCE ONE Rx#: [id number] Potassium Chloride 20 meq 100 In Water For Injection 1 100ml.bag @ 50 mls/hr IVPB ONCE ONE Rx#: [id number] Sodium Chloride 0.9% 1, 100 000 ml @ 10 mls/hr IV . Q24H [facility] Rx#:[id number] Vasopressin 20 unit In 2.346 48.884 Sodium Chloride 0.9% 50 ml @ 0.03 UNITS/MIN 4.59 mls/hr IV .Q11H7M [facility] Rx# :[id number] propofoL 1,000 mg In 81.926 200.000 45.758 Empty Bag 1 bag @ 15 MCG/ KG/MIN 9.864 mls/hr IV . Q10H9M [facility] Rx#:[id number] Blood Product 429 Ffp 24 Pher Acda Unit 216 [id number] Ffp 24 Pher Acda Unit 213 [id number] Output: Urine 240 675 70 Other: Voiding Method Indwelling Catheter Indwelling Catheter Indwelling Catheter ABP, PAP, CO, CI - Last Documented Arterial Blood Pressure 90/59 - Labs CBC & Chem 7: 07/29/24 05:30 07/29/24 09:31 Labs: Abnormal Lab Results - Last 24 Hours (Table) 07/28/24 07/28/24 07/28/24 Range/Units 12:27 12:33 14:15 RBC (4.30-5.90) m/uL Hgb (13.0-17.5) gm/dL Hct (39.0-53.0) % Plt Count (150-450) k/uL Neutrophils # (Manual) (1.3-7.7) k/uL Lymphocytes # (Manual) (1.0-4.8) k/uL PT (10.0-12.5) sec INR (<1.2) ABG pH 7.47 H (7.35-7.45) ABG pCO2 (35-45) mmHg ABG pO2 73 L (83-108) mmHg ABG HCO3 26 H (21-25) mmol/L ABG Total CO2 27 H (19-24) mmol/L Hemoglobin 12.8 L (13.0-17.5) gm/dL Potassium 3.4 L (3.5-5.1) mmol/L BUN (9-20) mg/dL Creatinine (0.66-1.25) mg/dL Glucose (74-99) mg/dL POC Glucose (mg/dL) (70-110) mg/dL Plasma Lactic Acid Jose 3.7 H* (0.7-2.0) mmol/L Total Bilirubin (0.2-1.3) mg/dL AST (17-59) U/L ALT (4-49) U/L Total Protein (6.3-8.2) g/dL Albumin (3.5-5.0) g/dL 07/28/24 07/28/24 07/29/24 Range/Units 14:15 18:03 00:31 RBC (4.30-5.90) m/uL Hgb (13.0-17.5) gm/dL Hct (39.0-53.0) % Plt Count (150-450) k/uL Neutrophils # (Manual) (1.3-7.7) k/uL Lymphocytes # (Manual) (1.0-4.8) k/uL PT 23.0 H (10.0-12.5) sec INR 2.3 H (<1.2) ABG pH (7.35-7.45) ABG pCO2 (35-45) mmHg ABG pO2 (83-108) mmHg ABG HCO3 (21-25) mmol/L ABG Total CO2 (19-24) mmol/L Hemoglobin (13.0-17.5) gm/dL Potassium (3.5-5.1) mmol/L BUN (9-20) mg/dL Creatinine (0.66-1.25) mg/dL Glucose (74-99) mg/dL POC Glucose (mg/dL) 150 H 154 H (70-110) mg/dL Plasma Lactic Acid Jose (0.7-2.0) mmol/L Total Bilirubin (0.2-1.3) mg/dL AST (17-59) U/L ALT (4-49) U/L Total Protein (6.3-8.2) g/dL Albumin (3.5-5.0) g/dL 07/29/24 07/29/24 07/29/24 Range/Units 05:30 05:30 05:32 RBC 3.69 L (4.30-5.90) m/uL Hgb 11.3 L (13.0-17.5) gm/dL Hct 35.3 L (39.0-53.0) % Plt Count 103 L (150-450) k/uL Neutrophils # (Manual) 7.74 H (1.3-7.7) k/uL Lymphocytes # (Manual) 0.52 L (1.0-4.8) k/uL PT (10.0-12.5) sec INR (<1.2) ABG pH (7.35-7.45) ABG pCO2 (35-45) mmHg ABG pO2 (83-108) mmHg ABG HCO3 (21-25) mmol/L ABG Total CO2 (19-24) mmol/L Hemoglobin (13.0-17.5) gm/dL Potassium (3.5-5.1) mmol/L BUN 122 H* (9-20) mg/dL Creatinine 4.36 H (0.66-1.25) mg/dL Glucose 202 H (74-99) mg/dL POC Glucose (mg/dL) 202 H (70-110) mg/dL Plasma Lactic Acid Jose (0.7-2.0) mmol/L Total Bilirubin 9.5 H (0.2-1.3) mg/dL AST 355 H (17-59) U/L ALT 176 H (4-49) U/L Total Protein 5.3 L (6.3-8.2) g/dL Albumin 3.0 L (3.5-5.0) g/dL 07/29/24 Range/Units 05:44 RBC (4.30-5.90) m/uL Hgb (13.0-17.5) gm/dL Hct (39.0-53.0) % Plt Count (150-450) k/uL Neutrophils # (Manual) (1.3-7.7) k/uL Lymphocytes # (Manual) (1.0-4.8) k/uL PT (10.0-12.5) sec INR (<1.2) ABG pH 7.54 H (7.35-7.45) ABG pCO2 30 L (35-45) mmHg ABG pO2 70 L (83-108) mmHg ABG HCO3 26 H (21-25) mmol/L ABG Total CO2 26 H (19-24) mmol/L Hemoglobin 12.5 L (13.0-17.5) gm/dL Potassium (3.5-5.1) mmol/L BUN (9-20) mg/dL Creatinine (0.66-1.25) mg/dL Glucose (74-99) mg/dL POC Glucose (mg/dL) (70-110) mg/dL Plasma Lactic Acid Jose (0.7-2.0) mmol/L Total Bilirubin (0.2-1.3) mg/dL AST (17-59) U/L ALT (4-49) U/L Total Protein (6.3-8.2) g/dL Albumin (3.5-5.0) g/dL Microbiology - Last 24 Hours (Table) 07/28/24 15:35 Gram Stain - Preliminary Sputum Assessment and Plan Plan: Plan: 1. Acute kidney injury secondary to hemodynamic ATN. Creatinine 4.6 on admission and is fairly stable at 4.36 today. Unknown baseline renal function. No hydronephrosis noted on imaging. 2. A-fib with RVR maintained on amiodarone drip. 3. Volume overload. 4. Acute on chronic systolic CHF ejection fraction of 15 to 20% with severe mitral and tricuspid regurgitation. 5. Hypokalemia from poor intake. 6. Mild rhabdomyolysis due to fall/immobility. Improved. 7. Acute hypoxic respiratory failure secondary to volume overload. Plan: Maintain Lasix drip. Dobutamine per cardiology. Wean vasopressors and FiO2. Continue to monitor renal function and urine output. Potassium replaced. Continue to assess daily for need for renal replacement therapy. Currently hemodynamically unstable.
[2024-07-29] MEDS: PANTOPRAZOLE 40 MG/10 ML VIAL IVP SCH (10:40)
[2024-07-29] MEDS: HYDROCORTISONE SUCCINATE 100 MG/2 ML VIAL IV STA (10:41)
[2024-07-29] MEDS: POTASSIUM BICARBONATE/CIT AC 20 MEQ TABLET.EFF PO ONE (11:21)
[2024-07-29 11:54] LABS: Glucose,Whole Blood 210 mg/dL (70-110)
[2024-07-29] MEDS ORDERED: DEXTROSE 50% SYRINGE 50 ML IVP PRN ×2 (11:54)
--- NOTE | 2024-07-29 12:02 | P.PN ---
Subjective Progress Note Date: 07/29/24 This is a 69-year-old white male with history of alcoholism, lives at home by himself, patient presented to the ER yesterday after he was found unresponsive on the floor, and he was discovered by his neighbor. His unresponsiveness is of unknown duration, apparently his neighbor saw him last a week prior. Patient was found on the floor, was noted to be quite edematous, and apparently there was food burning on the stove. Patient could not respond to any questions. And his sister was at bedside all she knows is the patient has been diagnosed with prostate cancer and untreated. She also told me that he has history of alcoholism. Patient was admitted to the ICU, and he was noted to be hypotensive he was also noted to have ascites, pulmonary edema based on chest x-ray, he was also noted to have severe LV dysfunction with ejection fraction of 20%, his labs showed relatively normal CBC, platelets are 1 19,000's, INR was extremely elevated received fresh frozen plasma and vitamin K, last INR is 3 his bicarb is 13 BUN is 113 creatinine 4.25. CPK was also elevated 1264. Her enzymes elevated with AST of 343 and ALT of 164 patient is obtunded, restless, agitated, hence I have recommended starting the patient on Precedex, I also recommended pressors in the form of norepinephrine, may add vasopressin may also add dobutamine. 07/29/2024 Patient seen and examined at bedside. Patient still in the ICU and is still obtunded. Patient on mechanical ventilator tidal volume 500, rate of 20, FiO2 of 100, increased the PEEP to 10. Chest x-ray is stable and shows no change from yesterday. ABG today pH of 7.54, CO2 30, O2 70, bicarb 26 with FiO2 of 70. Patient currently on IV fluids, Lasix IV 5 mg/h, vasopressin IV 0.42 units/h, Levophed IV 25 units/h, dobutamine IV 5 mcg, amiodarone IV 1 mg, propofol IV 25/h and on Zosyn 3.37 5 g IVPB. Currently not on DVT prophylaxis due to low platelets and elevated PT and INR on admission. Labs today show WBC 8.6 hemoglobin 11.3 platelet low at 103, BUN 122 creatinine 4.36, bicarb 24. Objective - Vital Signs Vital signs: Vital Signs Temp 98.1 F 07/29/24 08:00 Pulse 124 H 07/29/24 09:30 Resp 22 07/29/24 09:30 BP 87/69 07/29/24 09:30 Pulse Ox 93 L 07/29/24 09:30 FiO2 30 07/29/24 09:15 Intake & Output 07/28/24 07/29/24 07/29/24 18:59 06:59 18:59 Intake Total 2294.559 1737.378 281.729 Output Total 240 675 110 Balance 2054.559 1062.378 171.729 Weight 109.6 kg 112.3 kg Intake: IV 1133 1191 129 0.9 NACL 315 255 45 0.9 NACL Bolus 800 Piperacillin-Tazobactam 3 100 75 .375 gm In Sodium Chloride 0.9% 100 ml @ 25 mls/hr IVPB Q12HR [facility] Rx #:[id number] Potassium Chloride 10 meq 300 In Water For Injection 1 100ml.bag @ 100 mls/hr IVPB Q1H [facility] Rx#: [id number] Potassium Chloride 20 meq 300 In Water For Injection 1 100ml.bag @ 50 mls/hr IVPB ONCE ONE Rx#: [id number] Potassium Chloride 20 meq 200 In Water For Injection 1 100ml.bag @ 50 mls/hr IVPB ONCE ONE Rx#: [id number] arterial line 18 36 9 Intake, IV Titration 732.559 546.378 152.729 Amount Dexmedetomidine/0.9% NaCl 20.322 (Pmx) 400 mcg In Empty Bag 1 bag @ 0.2 MCG/KG/HR 5.48 mls/hr IV .[id number] [facility] Rx#:[id number] Diltiazem 125 mg In 125 8 Sodium Chloride 0.9% 100 ml @ 5 MG/HR 5 mls/hr IV .Q24H [facility] Rx#:[id number] Furosemide 100 mg In 20 Sodium Chloride 0.9% 90 ml @ 10 MG/HR 10 mls/hr IV .Q10H [facility] Rx#: [id number] Furosemide 100 mg In 6.833 93.167 Sodium Chloride 0.9% 90 ml @ 5 MG/HR 5 mls/hr IV .Q20H [facility] Rx#:[id number] Norepinephrine 32 mg In 84.162 196.327 86.971 Sodium Chloride 0.9% 218 ml @ 0.03 MCG/KG/MIN 1. 541 mls/hr IV .Q24H [facility] Rx#:[id number] Norepinephrine 4 mg In 11.970 Sodium Chloride 0.9% 250 ml @ 0.03 MCG/KG/MIN 12. 527 mls/hr IV .[id number] [facility] Rx#:[id number] Piperacillin-Tazobactam 3 100 .375 gm In Sodium Chloride 0.9% 100 ml @ 25 mls/hr IVPB Q12HR [facility] Rx #:[id number] Potassium Chloride 10 meq 100 In Water For Injection 1 100ml.bag @ 100 mls/hr IVPB ONCE ONE Rx#: [id number] Potassium Chloride 20 meq 100 In Water For Injection 1 100ml.bag @ 50 mls/hr IVPB ONCE ONE Rx#: [id number] Sodium Chloride 0.9% 1, 100 000 ml @ 10 mls/hr IV . Q24H [facility] Rx#:[id number] Vasopressin 20 unit In 2.346 48.884 Sodium Chloride 0.9% 50 ml @ 0.03 UNITS/MIN 4.59 mls/hr IV .Q11H7M [facility] Rx# :[id number] propofoL 1,000 mg In 81.926 200.000 45.758 Empty Bag 1 bag @ 15 MCG/ KG/MIN 9.864 mls/hr IV . Q10H9M [facility] Rx#:[id number] Blood Product 429 Ffp 24 Pher Acda Unit 216 [id number] Ffp 24 Pher Acda Unit 213 [id number] Output: Urine 240 675 110 Other: Voiding Method Indwelling Catheter Indwelling Catheter Indwelling Catheter ABP, PAP, CO, CI - Last Documented Arterial Blood Pressure 90/59 - Exam General: 69-year-old white male nontoxic, on mechanical ventilator Head: Atraumatic, normocephalic EENT: Dry mucous membranes positive icterus. No neck masses no JVD Pulmonary: Diminished breath sound bilaterally no crackles rhonchi or wheezes HEART EXAMINATION: irregular irregular rhythm, 2/6 systolic murmur throughout the precordium ABDOMEN: Positive ascites soft, nontender. Bowel sounds are heard. No organomegaly noted. EXTREMITIES: 2+ bipedal edema with diminished distal pulses bilaterally. NEUROLOGIC EXAMINATION: Obtunded, wakes up to painful stimuli, no purposeful movement. Psychiatric: Could not assess, patient is obtunded. - Labs CBC & Chem 7: 07/29/24 05:30 07/29/24 09:31 Labs: Abnormal Lab Results - Last 24 Hours (Table) 07/28/24 07/28/24 07/28/24 Range/Units 12:27 12:33 14:15 RBC (4.30-5.90) m/uL Hgb (13.0-17.5) gm/dL Hct (39.0-53.0) % Plt Count (150-450) k/uL Neutrophils # (Manual) (1.3-7.7) k/uL Lymphocytes # (Manual) (1.0-4.8) k/uL PT (10.0-12.5) sec INR (<1.2) ABG pH 7.47 H (7.35-7.45) ABG pCO2 (35-45) mmHg ABG pO2 73 L (83-108) mmHg ABG HCO3 26 H (21-25) mmol/L ABG Total CO2 27 H (19-24) mmol/L Hemoglobin 12.8 L (13.0-17.5) gm/dL Potassium 3.4 L (3.5-5.1) mmol/L BUN (9-20) mg/dL Creatinine (0.66-1.25) mg/dL Glucose (74-99) mg/dL POC Glucose (mg/dL) (70-110) mg/dL Plasma Lactic Acid Jose 3.7 H* (0.7-2.0) mmol/L Total Bilirubin (0.2-1.3) mg/dL AST (17-59) U/L ALT (4-49) U/L Total Protein (6.3-8.2) g/dL Albumin (3.5-5.0) g/dL 07/28/24 07/28/24 07/29/24 Range/Units 14:15 18:03 00:31 RBC (4.30-5.90) m/uL Hgb (13.0-17.5) gm/dL Hct (39.0-53.0) % Plt Count (150-450) k/uL Neutrophils # (Manual) (1.3-7.7) k/uL Lymphocytes # (Manual) (1.0-4.8) k/uL PT 23.0 H (10.0-12.5) sec INR 2.3 H (<1.2) ABG pH (7.35-7.45) ABG pCO2 (35-45) mmHg ABG pO2 (83-108) mmHg ABG HCO3 (21-25) mmol/L ABG Total CO2 (19-24) mmol/L Hemoglobin (13.0-17.5) gm/dL Potassium (3.5-5.1) mmol/L BUN (9-20) mg/dL Creatinine (0.66-1.25) mg/dL Glucose (74-99) mg/dL POC Glucose (mg/dL) 150 H 154 H (70-110) mg/dL Plasma Lactic Acid Jose (0.7-2.0) mmol/L Total Bilirubin (0.2-1.3) mg/dL AST (17-59) U/L ALT (4-49) U/L Total Protein (6.3-8.2) g/dL Albumin (3.5-5.0) g/dL 07/29/24 07/29/24 07/29/24 Range/Units 05:30 05:30 05:32 RBC 3.69 L (4.30-5.90) m/uL Hgb 11.3 L (13.0-17.5) gm/dL Hct 35.3 L (39.0-53.0) % Plt Count 103 L (150-450) k/uL Neutrophils # (Manual) 7.74 H (1.3-7.7) k/uL Lymphocytes # (Manual) 0.52 L (1.0-4.8) k/uL PT (10.0-12.5) sec INR (<1.2) ABG pH (7.35-7.45) ABG pCO2 (35-45) mmHg ABG pO2 (83-108) mmHg ABG HCO3 (21-25) mmol/L ABG Total CO2 (19-24) mmol/L Hemoglobin (13.0-17.5) gm/dL Potassium (3.5-5.1) mmol/L BUN 122 H* (9-20) mg/dL Creatinine 4.36 H (0.66-1.25) mg/dL Glucose 202 H (74-99) mg/dL POC Glucose (mg/dL) 202 H (70-110) mg/dL Plasma Lactic Acid Jose (0.7-2.0) mmol/L Total Bilirubin 9.5 H (0.2-1.3) mg/dL AST 355 H (17-59) U/L ALT 176 H (4-49) U/L Total Protein 5.3 L (6.3-8.2) g/dL Albumin 3.0 L (3.5-5.0) g/dL 07/29/24 Range/Units 05:44 RBC (4.30-5.90) m/uL Hgb (13.0-17.5) gm/dL Hct (39.0-53.0) % Plt Count (150-450) k/uL Neutrophils # (Manual) (1.3-7.7) k/uL Lymphocytes # (Manual) (1.0-4.8) k/uL PT (10.0-12.5) sec INR (<1.2) ABG pH 7.54 H (7.35-7.45) ABG pCO2 30 L (35-45) mmHg ABG pO2 70 L (83-108) mmHg ABG HCO3 26 H (21-25) mmol/L ABG Total CO2 26 H (19-24) mmol/L Hemoglobin 12.5 L (13.0-17.5) gm/dL Potassium (3.5-5.1) mmol/L BUN (9-20) mg/dL Creatinine (0.66-1.25) mg/dL Glucose (74-99) mg/dL POC Glucose (mg/dL) (70-110) mg/dL Plasma Lactic Acid Jose (0.7-2.0) mmol/L Total Bilirubin (0.2-1.3) mg/dL AST (17-59) U/L ALT (4-49) U/L Total Protein (6.3-8.2) g/dL Albumin (3.5-5.0) g/dL Microbiology - Last 24 Hours (Table) 07/28/24 15:35 Gram Stain - Preliminary Sputum Assessment and Plan Assessment: Impression: Acute hypoxic respiratory failure secondary to volume overload, suspect systolic congestive heart failure/acute Hypotension, cardiogenic in nature r/o sepsis Acute metabolic encephalopathy Acute rhabdomyolysis Acute kidney injury secondary to rhabdomyolysis Acute systolic congestive heart failure with LV dysfunction Atrial fibrillation with RVR Elevated liver enzymes History of alcoholism/alcohol abuse History of prostate cancer Electrolytes imbalance, resolved Coagulopathy with elevated INR secondary to liver disease Recommendation: Continue ventilation support. PEEP increased to 10 Continue hemodynamic support, on dobutamine, levophed and vasopressin Continue empiric Zosyn IVPB every 6 hours Consult dietary to begin enteral feeding Continue Lasix IV drip Per Cardiology, Amiodarone 450mg IV for AFib Close monitoring of his renal profile and urine output Avoid nephrotoxic agents Prognosis: Patient is critically ill and still requires mechanical ventilation and hemodynamic support. Still concerned for pulmonary edema as CXR has not showed i mprovement. Prognosis is extremely poor and guarded Critical care time is over 30 minutes not including time spent on procedures Time with Patient: Greater than 30
[2024-07-29] MEDS: INSULIN ASPART (NovoLOG) 100 UNIT/ML VIAL SQ SCH (13:17)
[2024-07-29 17:26] LABS: Glucose,Whole Blood 204 mg/dL (70-110)
[2024-07-29 17:56] LABS: Glucose,Whole Blood 211 mg/dL (70-110)
[2024-07-29 23:21] LABS: Glucose,Whole Blood 208 mg/dL (70-110)
[2024-07-30 04:51] LABS: Basophils % (A) 0 %; Eosinophils % (A) 0 %; HCT 38.2 % (39.0-53.0); HGB 12.8 gm/dL (13.0-17.5); Hypochromasia Slight; Lymphocytes # (A) 0.8 k/uL (1.0-4.8); Lymphocytes % (A) 6 %; MCH 30.9 pg (25.0-35.0); MCHC 33.6 g/dL (31.0-37.0); Monocytes # (A) 0.6 k/uL (0-1.0); Monocytes % (A) 5 %; Neutrophils % (A) 87 %; RBC 4.16 m/uL (4.30-5.90); RDW 15.1 % (11.5-15.5); WBC 12.7 k/uL (3.8-10.6)
[2024-07-30 05:00] LABS: African American GFR (CKD) 14 (>60 ml/min/1.73 sqM); Anion Gap 11 mmol/L; Calcium 8.5 mg/dL (8.4-10.2); Carbon Dioxide 25 mmol/L (22-30); Chloride 102 mmol/L (98-107); Glucose 195 mg/dL (74-99); Non-African American GFR(CKD) 12 (>60 ml/min/1.73 sqM); Potassium 3.2 mmol/L (3.5-5.1); Sodium 138 mmol/L (137-145)
[2024-07-30 05:09] LABS: Blood Urea Nitrogen 127 mg/dL (9-20)
[2024-07-30 05:24] LABS: ABG Base Excess 4.4 mmol/L; ABG HCO3 27 mmol/L (21-25); ABG PCO2 32 mmHg (35-45); ABG PH 7.53 (7.35-7.45); ABG PO2 62 mmHg (83-108); ABG TCO2 28 mmol/L (19-24)
[2024-07-30 06:05] LABS: Glucose,Whole Blood 207 mg/dL (70-110)
[2024-07-30 06:05] LABS: Allen Test Performed? no
[2024-07-30 07:01] LABS: Platelet Count 92 k/uL (150-450)
--- NOTE | 2024-07-30 08:07 | XR ---
EXAMINATION TYPE: XR chest 1V portable DATE OF EXAM: 07/30/2024 COMPARISON: 07/29/2024 HISTORY: SOB, Follow Up FINDINGS: Indwelling tubes and catheters are unchanged. No change in bibasilar opacities. Stable appearance of the cardio-mediastinal structures at this time. Pleural effusion unchanged. IMPRESSION: 1. Stable portable chest. Clinical correlation and follow up until resolution is recommended. [facility], , 07/30/2024 8:05 AM
[2024-07-30] MEDS: POTASSIUM BICARBONATE/CIT AC 20 MEQ TABLET.EFF NG-TUBE SCH (08:32)
--- NOTE | 2024-07-30 10:01 | P.PN ---
Subjective Patient is seen in follow-up for acute kidney injury. Creatinine stable. Currently on amiodarone drip for A-fib. Also on Levophed, vasopressin, d obutamine and Lasix drip. Urine output 30 to 40 cc an hour. Intubated. Vital signs -in A-fib. On vasopressor support. General: Resting in bed. HEENT: Intubated. LUNGS: Scattered rhonchi. HEART: Irregular rate and rhythm. ABDOMEN: No distention. EXTREMITITES: 2+ edema. Objective - Vital Signs Vital signs: Vital Signs Temp 97.6 F 07/30/24 08:15 Pulse 112 H 07/30/24 09:00 Resp 22 07/30/24 09:00 BP 82/66 07/30/24 07:00 Pulse Ox 91 L 07/30/24 09:00 FiO2 70 07/30/24 09:56 Intake & Output 07/29/24 07/30/24 07/30/24 18:59 06:59 18:59 Intake Total 3364.048 6366.146 254 Output Total 385 380 115 Balance 275.325 7667.146 139 Weight 112.3 kg 114.8 kg Intake: IV 298 216 54 0.9 NACL 165 180 45 Piperacillin-Tazobactam 3 100 .375 gm In Sodium Chloride 0.9% 100 ml @ 25 mls/hr IVPB Q12HR [facility] Rx #:[id number] arterial line 33 36 9 Intake, IV Titration 436.773 2167.146 200 Amount Amiodarone 450 mg In 246.394 Dextrose 5% in Water 250 ml @ 0.5 MG/MIN 16.667 mls/hr IV .Q15H [facility] Rx#: [id number] DOBUTamine DRIP 500 mg In 244.956 247.696 Dextrose/Water 1 250ml. bag @ 5 MCG/KG/MIN 16.44 mls/hr IV .[id number] [facility] Rx #:[id number] Furosemide 100 mg In 100 83 100 Sodium Chloride 0.9% 90 ml @ 10 MG/HR 10 mls/hr IV .Q10H [facility] Rx#: [id number] Furosemide 100 mg In 20 Sodium Chloride 0.9% 90 ml @ 10 MG/HR 10 mls/hr IV .Q10H [facility] Rx#: [id number] Norepinephrine 32 mg In 149.854 300.355 Sodium Chloride 0.9% 218 ml @ 0.03 MCG/KG/MIN 1. 541 mls/hr IV .Q24H [facility] Rx#:[id number] Vasopressin 20 unit In 46.895 36.643 Sodium Chloride 0.9% 50 ml @ 0.03 UNITS/MIN 4.59 mls/hr IV .Q11H7M [facility] Rx# :[id number] propofoL 1,000 mg In 145.758 169.058 100 Empty Bag 1 bag @ 15 MCG/ KG/MIN 9.864 mls/hr IV . Q10H9M [facility] Rx#:[id number] Tube Feeding 80 250 Other 30 90 Output: Urine 385 380 115 Other: Voiding Method Indwelling Catheter Indwelling Catheter Indwelling Catheter ABP, PAP, CO, CI - Last Documented Arterial Blood Pressure 87/66 - Labs CBC & Chem 7: 07/30/24 04:23 07/30/24 04:23 Labs: Abnormal Lab Results - Last 24 Hours (Table) 07/29/24 07/29/24 07/29/24 Range/Units 11:53 17:25 17:55 WBC (3.8-10.6) k/uL RBC (4.30-5.90) m/uL Hgb (13.0-17.5) gm/dL Hct (39.0-53.0) % Plt Count (150-450) k/uL Neutrophils # (1.3-7.7) k/uL Lymphocytes # (1.0-4.8) k/uL ABG pH (7.35-7.45) ABG pCO2 (35-45) mmHg ABG pO2 (83-108) mmHg ABG HCO3 (21-25) mmol/L ABG Total CO2 (19-24) mmol/L ABG O2 Saturation (94-97) % Potassium (3.5-5.1) mmol/L BUN (9-20) mg/dL Creatinine (0.66-1.25) mg/dL Glucose (74-99) mg/dL POC Glucose (mg/dL) 210 H 204 H 211 H (70-110) mg/dL 07/29/24 07/30/24 07/30/24 Range/Units 23:19 04:23 04:23 WBC 12.7 H (3.8-10.6) k/uL RBC 4.16 L (4.30-5.90) m/uL Hgb 12.8 L (13.0-17.5) gm/dL Hct 38.2 L (39.0-53.0) % Plt Count 92 L (150-450) k/uL Neutrophils # 11.0 H (1.3-7.7) k/uL Lymphocytes # 0.8 L (1.0-4.8) k/uL ABG pH (7.35-7.45) ABG pCO2 (35-45) mmHg ABG pO2 (83-108) mmHg ABG HCO3 (21-25) mmol/L ABG Total CO2 (19-24) mmol/L ABG O2 Saturation (94-97) % Potassium 3.2 L (3.5-5.1) mmol/L BUN 127 H* (9-20) mg/dL Creatinine 4.54 H (0.66-1.25) mg/dL Glucose 195 H (74-99) mg/dL POC Glucose (mg/dL) 208 H (70-110) mg/dL 07/30/24 07/30/24 Range/Units 05:21 06:03 WBC (3.8-10.6) k/uL RBC (4.30-5.90) m/uL Hgb (13.0-17.5) gm/dL Hct (39.0-53.0) % Plt Count (150-450) k/uL Neutrophils # (1.3-7.7) k/uL Lymphocytes # (1.0-4.8) k/uL ABG pH 7.53 H (7.35-7.45) ABG pCO2 32 L (35-45) mmHg ABG pO2 62 L (83-108) mmHg ABG HCO3 27 H (21-25) mmol/L ABG Total CO2 28 H (19-24) mmol/L ABG O2 Saturation 92.0 L (94-97) % Potassium (3.5-5.1) mmol/L BUN (9-20) mg/dL Creatinine (0.66-1.25) mg/dL Glucose (74-99) mg/dL POC Glucose (mg/dL) 207 H (70-110) mg/dL Microbiology - Last 24 Hours (Table) 07/28/24 15:35 Gram Stain - Final Sputum Sputum Culture - Final Assessment and Plan Plan: Plan: 1. Acute kidney injury secondary to hemodynamic ATN. Creatinine 4.6 on admission and is fairly stable at 4.54 today. Urine output 30 to 40 cc an hour. Unknown baseline renal function. No hydronephrosis noted on imaging. 2. A-fib with RVR maintained on amiodarone drip. 3. Volume overload. 4. Acute on chronic systolic CHF ejection fraction of 15 to 20% with severe mitral and tricuspid regurgitation. 5. Hypokalemia from poor intake and diuresis. Being replaced. 6. Mild rhabdomyolysis due to fall/immobility. Improved. 7. Acute hypoxic respiratory failure secondary to volume overload. Plan: Maintain Lasix drip. Dobutamine per cardiology. Wean vasopressors and FiO2. Continue to monitor renal function and urine output. Potassium replaced. Continue to assess daily for need for renal replacement therapy. No urgency at this time. Remains hemodynamically unstable. Prognosis guarded.
--- NOTE | 2024-07-30 10:09 | P.PN ---
Subjective Progress Note Date: 07/30/24 The patient is a 69-year-old male who is currently admitted with rhabdomyolysis, acute kidney injury, and congestive heart failure. Patient is currently intubated on multiple vasopressors, IV amiodarone and IV Lasix. His oxygen requirements have increased over the last 24 hours. GENERAL: Ill-appearing, sedated on ventilator NECK: Supple without JVD or thyromegaly. LUNGS: Breath sounds coarse to auscultation bilaterally. Respiration equal and unlabored. Bilateral rhonchi. HEART: Irregular rate and rhythm without murmurs, rubs or gallops. S1 and S2 heard. Notably tachycardic. EXTREMITIES: +3 edema. Severe scrotal edema. No clubbing or cyanosis. Peripheral pulses intact and strong. TELEMETRY: Atrial fibrillation with a heart rate in the 120s LABS: WBC 12.7, hemoglobin 12.8, hematocrit 38.2, platelet 92, sodium 138, potassium 3.2, BUN 2027, creatinine 4.54 IMPRESSION: Atrial fibrillation with RVR Elevated troponins, in the setting of rhabdomyolysis and atrial fibrillation Systolic heart failure exacerbation Cardiomyopathy, unspecified, EF 15 to 20% Rhabdomyolysis Acute kidney injury Acute hypoxic respiratory failure Elevated liver enzymes History of EtOH abuse History of prostate cancer PLAN: Continue IV amiodarone and diuresis Continue supportive treatment Anticoagulation contraindicated due to liver disease Further recommendations to be based upon clinical course. Poor prognosis. I am dictating on behalf of Dr Wellington Maria's history/physical and assessment/plan. Objective - Vital Signs Vital signs: Vital Signs Temp 97.6 F 07/30/24 08:15 Pulse 112 H 07/30/24 09:00 Resp 22 07/30/24 09:00 BP 82/66 07/30/24 07:00 Pulse Ox 91 L 07/30/24 09:00 FiO2 70 07/30/24 09:56 Intake & Output 07/29/24 07/30/24 07/30/24 18:59 06:59 18:59 Intake Total 6609.575 6685.146 254 Output Total 385 380 115 Balance 730.688 6607.146 139 Weight 112.3 kg 114.8 kg Intake: IV 298 216 54 0.9 NACL 165 180 45 Piperacillin-Tazobactam 3 100 .375 gm In Sodium Chloride 0.9% 100 ml @ 25 mls/hr IVPB Q12HR [facility] Rx #:[id number] arterial line 33 36 9 Intake, IV Titration 671.266 5756.146 200 Amount Amiodarone 450 mg In 246.394 Dextrose 5% in Water 250 ml @ 0.5 MG/MIN 16.667 mls/hr IV .Q15H [facility] Rx#: [id number] DOBUTamine DRIP 500 mg In 244.956 247.696 Dextrose/Water 1 250ml. bag @ 5 MCG/KG/MIN 16.44 mls/hr IV .[id number] [facility] Rx #:[id number] Furosemide 100 mg In 100 83 100 Sodium Chloride 0.9% 90 ml @ 10 MG/HR 10 mls/hr IV .Q10H [facility] Rx#: [id number] Furosemide 100 mg In 20 Sodium Chloride 0.9% 90 ml @ 10 MG/HR 10 mls/hr IV .Q10H [facility] Rx#: [id number] Norepinephrine 32 mg In 149.854 300.355 Sodium Chloride 0.9% 218 ml @ 0.03 MCG/KG/MIN 1. 541 mls/hr IV .Q24H [facility] Rx#:[id number] Vasopressin 20 unit In 46.895 36.643 Sodium Chloride 0.9% 50 ml @ 0.03 UNITS/MIN 4.59 mls/hr IV .Q11H7M [facility] Rx# :[id number] propofoL 1,000 mg In 145.758 169.058 100 Empty Bag 1 bag @ 15 MCG/ KG/MIN 9.864 mls/hr IV . Q10H9M [facility] Rx#:[id number] Tube Feeding 80 250 Other 30 90 Output: Urine 385 380 115 Other: Voiding Method Indwelling Catheter Indwelling Catheter Indwelling Catheter ABP, PAP, CO, CI - Last Documented Arterial Blood Pressure 87/66 - Labs CBC & Chem 7: 07/30/24 04:23 07/30/24 04:23 Labs: Abnormal Lab Results - Last 24 Hours (Table) 07/29/24 07/29/24 07/29/24 Range/Units 11:53 17:25 17:55 WBC (3.8-10.6) k/uL RBC (4.30-5.90) m/uL Hgb (13.0-17.5) gm/dL Hct (39.0-53.0) % Plt Count (150-450) k/uL Neutrophils # (1.3-7.7) k/uL Lymphocytes # (1.0-4.8) k/uL ABG pH (7.35-7.45) ABG pCO2 (35-45) mmHg ABG pO2 (83-108) mmHg ABG HCO3 (21-25) mmol/L ABG Total CO2 (19-24) mmol/L ABG O2 Saturation (94-97) % Potassium (3.5-5.1) mmol/L BUN (9-20) mg/dL Creatinine (0.66-1.25) mg/dL Glucose (74-99) mg/dL POC Glucose (mg/dL) 210 H 204 H 211 H (70-110) mg/dL 07/29/24 07/30/24 07/30/24 Range/Units 23:19 04:23 04:23 WBC 12.7 H (3.8-10.6) k/uL RBC 4.16 L (4.30-5.90) m/uL Hgb 12.8 L (13.0-17.5) gm/dL Hct 38.2 L (39.0-53.0) % Plt Count 92 L (150-450) k/uL Neutrophils # 11.0 H (1.3-7.7) k/uL Lymphocytes # 0.8 L (1.0-4.8) k/uL ABG pH (7.35-7.45) ABG pCO2 (35-45) mmHg ABG pO2 (83-108) mmHg ABG HCO3 (21-25) mmol/L ABG Total CO2 (19-24) mmol/L ABG O2 Saturation (94-97) % Potassium 3.2 L (3.5-5.1) mmol/L BUN 127 H* (9-20) mg/dL Creatinine 4.54 H (0.66-1.25) mg/dL Glucose 195 H (74-99) mg/dL POC Glucose (mg/dL) 208 H (70-110) mg/dL 07/30/24 07/30/24 Range/Units 05:21 06:03 WBC (3.8-10.6) k/uL RBC (4.30-5.90) m/uL Hgb (13.0-17.5) gm/dL Hct (39.0-53.0) % Plt Count (150-450) k/uL Neutrophils # (1.3-7.7) k/uL Lymphocytes # (1.0-4.8) k/uL ABG pH 7.53 H (7.35-7.45) ABG pCO2 32 L (35-45) mmHg ABG pO2 62 L (83-108) mmHg ABG HCO3 27 H (21-25) mmol/L ABG Total CO2 28 H (19-24) mmol/L ABG O2 Saturation 92.0 L (94-97) % Potassium (3.5-5.1) mmol/L BUN (9-20) mg/dL Creatinine (0.66-1.25) mg/dL Glucose (74-99) mg/dL POC Glucose (mg/dL) 207 H (70-110) mg/dL Microbiology - Last 24 Hours (Table) 07/28/24 15:35 Gram Stain - Final Sputum Sputum Culture - Final
[2024-07-30 10:10] LABS: INR 1.9 (<1.2); Prothrombin Time 19.6 sec (10.0-12.5)
[2024-07-30] MEDS: AMIODARONE 450 MG in DEXTROSE 5% IN WATER 250 ML IV SCH (10:17)
--- NOTE | 2024-07-30 10:40 | US ---
EXAMINATION TYPE: US abdomen limited DATE OF EXAM: 07/30/2024 COMPARISON: NONE CLINICAL INDICATION: Male, 69 years old with history of Ascites; evaluate for ascites Minimal amount of abdominal ascites IMPRESSION: As above [facility], , 07/30/2024 10:38 AM
--- NOTE | 2024-07-30 10:41 | US ---
EXAMINATION TYPE: US chest DATE OF EXAM: 07/30/2024 COMPARISON: NONE CLINICAL INDICATION: Male, 69 years old with history of Pleural effusion; pleural effusion TECHNIQUE: Grayscale imaging of the chest. Targeted ultrasound of the posterior lower bilateral julien thoraces FINDINGS: EXAM MEASUREMENTS: *Technical limitations, patient unable to sit upright on his own, needed assistance from 2 RNs Right Pleural Effusion pocket size: 10.4 cm Right skin surface to fluid distance: 4.1 cm Left Pleural Effusion pocket size: 9.4 cm Left skin surface to fluid distance: 3.1 cm Right side marked for possible thoracentesis outside the dept. Left side marked for possible thoracentesis outside the dept. Pulmonologists are able to review the images in the patient?s EMR. IMPRESSIONS: As above [facility], , 07/30/2024 10:38 AM
--- NOTE | 2024-07-30 10:45 | P.PN ---
Subjective Progress Note Date: 07/29/24 Patient is a 69-year-old male with a past medical history of prostate cancer and alcohol abuse was brought to ER by EMS after he was found unresponsive on the floor when her neighbor did a wellness check. Patient could not provide any history. Apparently his neighbor last saw him moved a week prior. Patient's sister is at bedside and is able to provide his past medical history. She tried to reach him few times but he usually does not respond immediately due to prior histories of depression and alcohol abuse. Patient was not febrile on admission. Blood pressure went down to 76/59 and heart rate 151 and respiration 20 and patient is requiring 5 L oxygen via nasal cannula. Chest x-ray showed cardiomegaly, pulmonary vascular congestion and bilateral pleural effusions. Correlate with BNP for CHF. CT head and cervical spine showed no acute intracranial process. Nonspecific white matter changes likely secondary to chronic small vessel ischemic disease. No evidence of cervical spine fracture. Mild to moderate multilevel degenerative disc disease. Evidence of CHF with anasarca, pulmonary vascular congestion and bilateral pleural effusions. CT abdomen and pelvis CT showed cardiomegaly, anasarca and bilateral pleural effusions and pulmonary vascular congestion correlated with CHF. Hepatic steatosis correlate with elevated liver labs secondary to heart failure. Chest x-ray this morning showed hazy density throughout the right mid and lower lung has increased. Suspect some increasing pleural effusion and density seen with adjacent atelectasis/consolidation. Likely sequela of mild CHF. 2D echocardiogram showed four-chamber enlargement with specifically severe left ventricular dilatation global decrease in contractility estimate ejection fraction of 15 to 20%. There is also severe mitral and tricuspid regurgitation but right sided pressures are not elevated which may reflect decreasing right ventricular dysfunction as well. Small pericardial effusion and there is pleural effusion. EKG showed atrial fibrillation with rapid ventricular response with aberrant conduction. Laboratory data showed WBC 9.6 hemoglobin 13.1 and platelets 119 INR greater than 10 BUN 104 and creatinine 4.62, sodium 139 potassium 3.8 chloride 93 bicarb is 25 and blood sugar 103 lactic acid 8.7 Total bili 9.8 AST 353 ALT 162 and alk phos 92 CK2 243 and troponin 0.759 and proBNP 34,000 and TSH 4.22 urinalysis is negative for infection UDS negative and alcohol level is less than 10 07/29/2024 Patient is currently in MICU. Intubated on mechanical ventilator. Patient remains on pressor support. On dobutamine and norepinephrine. Chest x-ray today showed stable portable chest. Patient has been afebrile. Laboratory data showed WBC 8.6 hemoglobin 11.3 platelets 103 Sodium 137 potassium 3.5 chloride 101 bicarb is 24 BUN 122 and creatinine 4.36 and blood sugar 202 AST 355 ALT 176 alk phos 83 albumin 3.0 Continued on antibiotics Zosyn. Current medications reviewed. Objective - Vital Signs Vital signs: Vital Signs Temp 97.9 F 07/29/24 20:00 Pulse 147 H 07/29/24 22:00 Resp 22 07/29/24 22:00 BP 95/64 07/29/24 22:00 Pulse Ox 89 L 07/29/24 22:00 FiO2 70 07/29/24 20:23 Intake & Output 07/29/24 07/29/24 07/30/24 06:59 18:59 06:59 Intake Total 8040.584 7803.463 610.034 Output Total 675 385 110 Balance 1062.378 730.463 500.034 Weight 112.3 kg 112.3 kg Intake: IV 1191 298 72 0.9 NACL 255 165 60 Piperacillin-Tazobactam 3 100 100 .375 gm In Sodium Chloride 0.9% 100 ml @ 25 mls/hr IVPB Q12HR ON LICENSE OF [facility] Rx #:[id number] Potassium Chloride 10 meq 300 In Water For Injection 1 100ml.bag @ 100 mls/hr IVPB Q1H ON LICENSE OF [facility] Rx#: [id number] Potassium Chloride 20 meq 300 In Water For Injection 1 100ml.bag @ 50 mls/hr IVPB ONCE ONE Rx#: [id number] Potassium Chloride 20 meq 200 In Water For Injection 1 100ml.bag @ 50 mls/hr IVPB ONCE ONE Rx#: [id number] arterial line 36 33 12 Intake, IV Titration 546.378 707.463 428.034 Amount Amiodarone 450 mg In 246.394 Dextrose 5% in Water 250 ml @ 0.5 MG/MIN 16.667 mls/hr IV .Q15H ON LICENSE OF [facility] Rx#: [id number] DOBUTamine DRIP 500 mg In 244.956 Dextrose/Water 1 250ml. bag @ 5 MCG/KG/MIN 16.44 mls/hr IV .[id number] ON LICENSE OF [facility] Rx #:[id number] Diltiazem 125 mg In 8 Sodium Chloride 0.9% 100 ml @ 5 MG/HR 5 mls/hr IV .Q24H [facility] Rx#:[id number] Furosemide 100 mg In 93.167 100 83 Sodium Chloride 0.9% 90 ml @ 10 MG/HR 10 mls/hr IV .Q10H [facility] Rx#: [id number] Furosemide 100 mg In 20 Sodium Chloride 0.9% 90 ml @ 10 MG/HR 10 mls/hr IV .Q10H [facility] Rx#: [id number] Norepinephrine 32 mg In 196.327 149.854 Sodium Chloride 0.9% 218 ml @ 0.03 MCG/KG/MIN 1. 541 mls/hr IV .Q24H [facility] Rx#:[id number] Vasopressin 20 unit In 48.884 46.895 Sodium Chloride 0.9% 50 ml @ 0.03 UNITS/MIN 4.59 mls/hr IV .Q11H7M [facility] Rx# :[id number] propofoL 1,000 mg In 200.000 145.758 98.64 Empty Bag 1 bag @ 15 MCG/ KG/MIN 9.864 mls/hr IV . Q10H9M [facility] Rx#:[id number] Tube Feeding 80 80 Other 30 30 Output: Urine 675 385 110 Other: Voiding Method Indwelling Catheter Indwelling Catheter Indwelling Catheter ABP, PAP, CO, CI - Last Documented Arterial Blood Pressure 84/63 - Exam PHYSICAL EXAMINATION: Patient is intubated and on mechanical ventilator. HEENT: Normocephalic. Neck is supple. Pupils reactive. Nostrils clear. Oral cavity is moist. Neck reveals no JVD, carotid bruits, or thyromegaly. CHEST EXAMINATION: Trachea is central. ET tube in place. Symmetrical expansion. Bibasilar diminished sounds otherwise lung urrutia clear to auscultation and percussion. CARDIAC: Normal S1, S2 with no gallops. No murmurs ABDOMEN: Soft. Bowel sounds normal. No organomegaly. No abdominal bruits. Extremities: reveal no edema. No clubbing or cyanosis Neurologically patient is intubated.. No gross focal deficits noted Skin: No rash or skin lesions. Psychiatric: Could not be assessed at this time. Musculoskeletal: No joint swelling or deformity. - Labs CBC & Chem 7: 07/30/24 04:23 07/30/24 04:23 Labs: Abnormal Lab Results - Last 24 Hours (Table) 07/29/24 07/29/24 07/29/24 Range/Units 00:31 05:30 05:30 RBC 3.69 L (4.30-5.90) m/uL Hgb 11.3 L (13.0-17.5) gm/dL Hct 35.3 L (39.0-53.0) % Plt Count 103 L (150-450) k/uL Neutrophils # (Manual) 7.74 H (1.3-7.7) k/uL Lymphocytes # (Manual) 0.52 L (1.0-4.8) k/uL ABG pH (7.35-7.45) ABG pCO2 (35-45) mmHg ABG pO2 (83-108) mmHg ABG HCO3 (21-25) mmol/L ABG Total CO2 (19-24) mmol/L Hemoglobin (13.0-17.5) gm/dL BUN 122 H* (9-20) mg/dL Creatinine 4.36 H (0.66-1.25) mg/dL Glucose 202 H (74-99) mg/dL POC Glucose (mg/dL) 154 H (70-110) mg/dL Total Bilirubin 9.5 H (0.2-1.3) mg/dL AST 355 H (17-59) U/L ALT 176 H (4-49) U/L Total Protein 5.3 L (6.3-8.2) g/dL Albumin 3.0 L (3.5-5.0) g/dL 07/29/24 07/29/24 07/29/24 Range/Units 05:32 05:44 11:53 RBC (4.30-5.90) m/uL Hgb (13.0-17.5) gm/dL Hct (39.0-53.0) % Plt Count (150-450) k/uL Neutrophils # (Manual) (1.3-7.7) k/uL Lymphocytes # (Manual) (1.0-4.8) k/uL ABG pH 7.54 H (7.35-7.45) ABG pCO2 30 L (35-45) mmHg ABG pO2 70 L (83-108) mmHg ABG HCO3 26 H (21-25) mmol/L ABG Total CO2 26 H (19-24) mmol/L Hemoglobin 12.5 L (13.0-17.5) gm/dL BUN (9-20) mg/dL Creatinine (0.66-1.25) mg/dL Glucose (74-99) mg/dL POC Glucose (mg/dL) 202 H 210 H (70-110) mg/dL Total Bilirubin (0.2-1.3) mg/dL AST (17-59) U/L ALT (4-49) U/L Total Protein (6.3-8.2) g/dL Albumin (3.5-5.0) g/dL 07/29/24 07/29/24 Range/Units 17:25 17:55 RBC (4.30-5.90) m/uL Hgb (13.0-17.5) gm/dL Hct (39.0-53.0) % Plt Count (150-450) k/uL Neutrophils # (Manual) (1.3-7.7) k/uL Lymphocytes # (Manual) (1.0-4.8) k/uL ABG pH (7.35-7.45) ABG pCO2 (35-45) mmHg ABG pO2 (83-108) mmHg ABG HCO3 (21-25) mmol/L ABG Total CO2 (19-24) mmol/L Hemoglobin (13.0-17.5) gm/dL BUN (9-20) mg/dL Creatinine (0.66-1.25) mg/dL Glucose (74-99) mg/dL POC Glucose (mg/dL) 204 H 211 H (70-110) mg/dL Total Bilirubin (0.2-1.3) mg/dL AST (17-59) U/L ALT (4-49) U/L Total Protein (6.3-8.2) g/dL Albumin (3.5-5.0) g/dL Microbiology - Last 24 Hours (Table) 07/28/24 15:35 Gram Stain - Preliminary Sputum Sputum Culture - Preliminary Assessment and Plan Assessment: Acute metabolic encephalopathy. Patient was found with facedown at home. New onset atrial fibrillation with rapid ventricular response Acute hypoxic respiratory failure secondary to CHF and fluid overload/anasarca. Acute CHF with systolic dysfunction ejection fraction 15 to 20% alcohol use disorder Elevated liver enzymes and hyperbilirubinemia Coagulopathy likely secondary to alcoholic liver disease with INR greater than 10 on admission Acute rhabdomyolysis Elevated troponin level likely secondary to A-fib with RVR and rhabdomyolysis Acute kidney injury secondary to ATN and rhabdomyolysis Lactic acidosis History of prostate cancer currently not on any medications GI prophylaxis Plan: Patient is currently in the MICU. Patient is currently intubated on mechanical ventilator. Requiring pressor support with Levophed and dobutamine. Cardizem drip for heart rate control. Continued on empiric antibiotics with Zosyn. Patient was given a dose of IV Lasix and is planning for Lasix drip and also st arted on pressor support with Levophed.. Also started on Diprivan drip. Monitor for alcohol withdrawal symptoms. Follow-up liver enzymes and patient was given vitamin K in the ER. Follow-up INR level trending down. Follow-up electrolytes. Nephrology and critical care team and cardiology is on board. Prognosis is guarded at this time. Discussed with patient and sister at bedside in detail. Time with Patient: Greater than 30
--- NOTE | 2024-07-30 11:09 | P.PN ---
Subjective Progress Note Date: 07/30/24 This is a 69-year-old white male with history of alcoholism, lives at home by himself, patient presented to the ER yesterday after he was found unresponsive on the floor, and he was discovered by his neighbor. His unresponsiveness is of unknown duration, apparently his neighbor saw him last a week prior. Patient was found on the floor, was noted to be quite edematous, and apparently there was food burning on the stove. Patient could not respond to any questions. And his sister was at bedside all she knows is the patient has been diagnosed with prostate cancer and untreated. She also told me that he has history of alcoholism. Patient was admitted to the ICU, and he was noted to be hypotensive he was also noted to have ascites, pulmonary edema based on chest x-ray, he was also noted to have severe LV dysfunction with ejection fraction of 20%, his labs showed relatively normal CBC, platelets are 1 19,000's, INR was extremely elevated received fresh frozen plasma and vitamin K, last INR is 3 his bicarb is 13 BUN is 113 creatinine 4.25. CPK was also elevated 1264. Her enzymes elevated with AST of 343 and ALT of 164 patient is obtunded, restless, agitated, hence I have recommended starting the patient on Precedex, I also recommended pressors in the form of norepinephrine, may add vasopressin may also add dobutamine. 07/29/2024 Patient seen and examined at bedside. Patient still in the ICU and is still obtunded. Patient on mechanical ventilator tidal volume 500, rate of 20, FiO2 of 100, increased the PEEP to 10. Chest x-ray is stable and shows no change from yesterday. ABG today pH of 7.54, CO2 30, O2 70, bicarb 26 with FiO2 of 70. Patient currently on IV fluids, Lasix IV 5 mg/h, vasopressin IV 0.04 units/h, Levophed IV 0.25 mcg/kg/min, dobutamine IV 5 mcg/kg/min, amiodarone IV 0.5mcg/min, propofol IV 25mcg/kg/min and on Zosyn 3.375 g IVPB. Currently not on DVT prophylaxis due to low platelets and elevated PT and INR on admission. Labs today show WBC 8.6 hemoglobin 11.3 platelet low at 103, BUN 122 creatinine 4.36, bicarb 24. 07/30/2024 Patient seen and examined at bedside. Patient still in the ICU and is still obtunded. Patient on ventilator with settings of tidal volume 450, assist-control rate of 20, FiO2 70, increased the PEEP to 12. Chest x-ray is shows bilateral pleural effusions and shows no improvement from yesterday. Urine output around 40 cc/h in the last 24 hours. ABG today pH 7.53, carbon dioxide 32, oxygen 62, bicarb 27, FiO2 70%. Patient remains sedated on propofol 25 mcg/kg/min. Still on empiric Zosyn 3.375g IVPB day 2. Patient currently on Lasix 10 mg/h IV, Levophed 0.3 mcg/kg/min, vasopressin 0.03 units/min, dobutamine 5 mcg/kg/min, amiodarone decreased to 0.5 mg/min IV and normal saline 0.9% 10 mL/h. Started on vital AF via OG tube at rate goal of 36 mL/h DVT prophylaxis still deferred. Labs today show WBC 12.7, hemoglobin 12.8, platelet decreased to 92, PT improved to 19.6, INR improved to 1.9, potassium 3.2, BUN 127, creatinine 4.54. Objective - Vital Signs Vital signs: Vital Signs Temp 97.6 F 07/30/24 08:15 Pulse 112 H 07/30/24 09:00 Resp 22 07/30/24 09:00 BP 82/66 07/30/24 07:00 Pulse Ox 91 L 07/30/24 09:00 FiO2 70 07/30/24 09:56 Intake & Output 07/29/24 07/30/24 07/30/24 18:59 06:59 18:59 Intake Total 4358.574 1785.146 254 Output Total 385 380 115 Balance 204.331 0807.146 139 Weight 112.3 kg 114.8 kg Intake: IV 298 216 54 0.9 NACL 165 180 45 Piperacillin-Tazobactam 3 100 .375 gm In Sodium Chloride 0.9% 100 ml @ 25 mls/hr IVPB Q12HR [facility] Rx #:[id number] arterial line 33 36 9 Intake, IV Titration 160.320 7392.146 200 Amount Amiodarone 450 mg In 246.394 Dextrose 5% in Water 250 ml @ 0.5 MG/MIN 16.667 mls/hr IV .Q15H [facility] Rx#: [id number] DOBUTamine DRIP 500 mg In 244.956 247.696 Dextrose/Water 1 250ml. bag @ 5 MCG/KG/MIN 16.44 mls/hr IV .[id number] [facility] Rx #:[id number] Furosemide 100 mg In 100 83 100 Sodium Chloride 0.9% 90 ml @ 10 MG/HR 10 mls/hr IV .Q10H [facility] Rx#: [id number] Furosemide 100 mg In 20 Sodium Chloride 0.9% 90 ml @ 10 MG/HR 10 mls/hr IV .Q10H [facility] Rx#: [id number] Norepinephrine 32 mg In 149.854 300.355 Sodium Chloride 0.9% 218 ml @ 0.03 MCG/KG/MIN 1. 541 mls/hr IV .Q24H [facility] Rx#:[id number] Vasopressin 20 unit In 46.895 36.643 Sodium Chloride 0.9% 50 ml @ 0.03 UNITS/MIN 4.59 mls/hr IV .Q11H7M [facility] Rx# :[id number] propofoL 1,000 mg In 145.758 169.058 100 Empty Bag 1 bag @ 15 MCG/ KG/MIN 9.864 mls/hr IV . Q10H9M [facility] Rx#:[id number] Tube Feeding 80 250 Other 30 90 Output: Urine 385 380 115 Other: Voiding Method Indwelling Catheter Indwelling Catheter Indwelling Catheter ABP, PAP, CO, CI - Last Documented Arterial Blood Pressure 87/66 - Exam General: 69-year-old white male nontoxic, on mechanical ventilator Head: Atraumatic, normocephalic EENT: Dry mucous membranes positive icterus. No neck masses no JVD Pulmonary: Diminished breath sound bilaterally no crackles rhonchi or wheezes HEART EXAMINATION: irregular irregular rhythm, 2/6 systolic murmur throughout the precordium ABDOMEN: Positive ascites noted to be increased today, soft, nontender. Bowel sounds are heard. No organomegaly noted. EXTREMITIES: 2+ bipedal edema with diminished distal pulses bilaterally. NEUROLOGIC EXAMINATION: Obtunded, wakes up to painful stimuli, no purposeful movement. Psychiatric: Could not assess, patient is obtunded. - Labs CBC & Chem 7: 07/30/24 04:23 07/30/24 04:23 Labs: Abnormal Lab Results - Last 24 Hours (Table) 07/29/24 07/29/24 07/29/24 Range/Units 11:53 17:25 17:55 WBC (3.8-10.6) k/uL RBC (4.30-5.90) m/uL Hgb (13.0-17.5) gm/dL Hct (39.0-53.0) % Plt Count (150-450) k/uL Neutrophils # (1.3-7.7) k/uL Lymphocytes # (1.0-4.8) k/uL PT (10.0-12.5) sec INR (<1.2) ABG pH (7.35-7.45) ABG pCO2 (35-45) mmHg ABG pO2 (83-108) mmHg ABG HCO3 (21-25) mmol/L ABG Total CO2 (19-24) mmol/L ABG O2 Saturation (94-97) % Potassium (3.5-5.1) mmol/L BUN (9-20) mg/dL Creatinine (0.66-1.25) mg/dL Glucose (74-99) mg/dL POC Glucose (mg/dL) 210 H 204 H 211 H (70-110) mg/dL 07/29/24 07/30/24 07/30/24 Range/Units 23:19 04:23 04:23 WBC 12.7 H (3.8-10.6) k/uL RBC 4.16 L (4.30-5.90) m/uL Hgb 12.8 L (13.0-17.5) gm/dL Hct 38.2 L (39.0-53.0) % Plt Count 92 L (150-450) k/uL Neutrophils # 11.0 H (1.3-7.7) k/uL Lymphocytes # 0.8 L (1.0-4.8) k/uL PT (10.0-12.5) sec INR (<1.2) ABG pH (7.35-7.45) ABG pCO2 (35-45) mmHg ABG pO2 (83-108) mmHg ABG HCO3 (21-25) mmol/L ABG Total CO2 (19-24) mmol/L ABG O2 Saturation (94-97) % Potassium 3.2 L (3.5-5.1) mmol/L BUN 127 H* (9-20) mg/dL Creatinine 4.54 H (0.66-1.25) mg/dL Glucose 195 H (74-99) mg/dL POC Glucose (mg/dL) 208 H (70-110) mg/dL 07/30/24 07/30/24 07/30/24 Range/Units 05:21 06:03 09:49 WBC (3.8-10.6) k/uL RBC (4.30-5.90) m/uL Hgb (13.0-17.5) gm/dL Hct (39.0-53.0) % Plt Count (150-450) k/uL Neutrophils # (1.3-7.7) k/uL Lymphocytes # (1.0-4.8) k/uL PT 19.6 H (10.0-12.5) sec INR 1.9 H (<1.2) ABG pH 7.53 H (7.35-7.45) ABG pCO2 32 L (35-45) mmHg ABG pO2 62 L (83-108) mmHg ABG HCO3 27 H (21-25) mmol/L ABG Total CO2 28 H (19-24) mmol/L ABG O2 Saturation 92.0 L (94-97) % Potassium (3.5-5.1) mmol/L BUN (9-20) mg/dL Creatinine (0.66-1.25) mg/dL Glucose (74-99) mg/dL POC Glucose (mg/dL) 207 H (70-110) mg/dL Microbiology - Last 24 Hours (Table) 07/28/24 15:35 Gram Stain - Final Sputum Sputum Culture - Final - Imaging and Cardiology Chest x-ray: report reviewed Assessment and Plan Assessment: Impression: Acute hypoxic respiratory failure secondary to volume overload from acute sy stolic congestive heart failure Hypotension, cardiogenic in nature r/o sepsis Acute metabolic encephalopathy Acute rhabdomyolysis Acute kidney injury secondary to rhabdomyolysis Acute systolic congestive heart failure with LV dysfunction (EF 15-20% on echo) Atrial fibrillation with RVR Coagulopathy with elevated INR secondary to liver disease Electrolytes imbalance Elevated liver enzymes History of alcoholism/alcohol abuse History of prostate cancer Recommendation: Continue ventilation support. PEEP increased to 12 Continue hemodynamic support, on dobutamine, levophed and vasopressin Continue sedation with Propofol 25 mcg/kg/min IV Continue empiric Zosyn IVPB every 6 hours Continue Lasix 10mg/hr IV Per Cardiology, Amiodarone 0.5mg/min IV for AFib Vital AF via OGT at goal rate of 36cc/hr Chest ultrasound. Consider thoracentesis if there is significant pleural effusion. Abdominal ultrasound Blood cultures CBC and BMP at AM Close monitoring of his renal profile and urine output Avoid nephrotoxic agents Prognosis: Patient is critically ill and still requires mechanical ventilation and hemodynamic support. Prognosis is extremely poor and guarded Critical care time is over 30 minutes not including time spent on procedures Time with Patient: Greater than 30
[2024-07-30 12:23] LABS: Glucose,Whole Blood 197 mg/dL (70-110)
--- NOTE | 2024-07-30 14:14 | P.PN ---
Subjective Progress Note Date: 07/30/24 Principal diagnosis: This is a 69-year-old white male with history of alcoholism, lives at home by himself, patient presented to the ER yesterday after he was found unresponsive o n the floor, and he was discovered by his neighbor. His unresponsiveness is of unknown duration, apparently his neighbor saw him last a week prior. Patient was found on the floor, was noted to be quite edematous, and apparently there was food burning on the stove. Patient could not respond to any questions. And his sister was at bedside all she knows is the patient has been diagnosed with prostate cancer and untreated. She also told me that he has history of alcoholism. Patient was admitted to the ICU, and he was noted to be hypotensive he was also noted to have ascites, pulmonary edema based on chest x-ray, he was also noted to have severe LV dysfunction with ejection fraction of 20%, his labs showed relatively normal CBC, platelets are 1 19,000's, INR was extremely elevated received fresh frozen plasma and vitamin K, last INR is 3 his bicarb is 13 BUN is 113 creatinine 4.25. CPK was also elevated 1264. Her enzymes elevated with AST of 343 and ALT of 164 patient is obtunded, restless, agitated, hence I have recommended starting the patient on Precedex, I also recommended pressors in the form of norepinephrine, may add vasopressin may also add dobutamine. 07/29/2024 Patient seen and examined at bedside. Patient still in the ICU and is still obtunded. Patient on mechanical ventilator tidal volume 500, rate of 20, FiO2 of 100, increased the PEEP to 10. Chest x-ray is stable and shows no change from yesterday. ABG today pH of 7.54, CO2 30, O2 70, bicarb 26 with FiO2 of 70. Patient currently on IV fluids, Lasix IV 5 mg/h, vasopressin IV 0.42 units/h, Levophed IV 25 units/h, dobutamine IV 5 mcg, amiodarone IV 1 mg, propofol IV 25/h and on Zosyn 3.37 5 g IVPB. Currently not on DVT prophylaxis due to low platelets and elevated PT and INR on admission. Labs today show WBC 8.6 hemoglobin 11.3 platelet low at 103, BUN 122 creatinine 4.36, bicarb 24. Patient was seen today on 07/30/2024, patient remains in the ICU, intubated and mechanically ventilated. Patient is on assist-control rate of 22 tidal volume 450 FiO2 70% PEEP of 10 which I increased to 12, ABG is marginal with a pO2 of 62 pCO2 32 pH of 7.53. Patient is still on multiple drips including vasopressin at 0.03 units/min, patient is also on amiodarone 0.5 mg/min, Dobutrex at 5 mcg/kg/min Lasix at 10 mg/h norepinephrine at 0.3 mcg/kg/min propofol at 25 mg/kg/min and the patient remains on antibiotics in the form of Zosyn. Chest x- ray is showing evidence of pulmonary edema with bilateral pleural effusions, labs were reviewed today, WBC is 12.7 hemoglobin 12.8 INR is 1.9 electrolytes are normal except for potassium of 3.2 BUN is 127 creatinine 4.54 and glucose is 195 Objective - Vital Signs Vital signs: Vital Signs Temp 97.5 F L 07/30/24 12:00 Pulse 111 H 07/30/24 13:00 Resp 22 07/30/24 13:00 BP 82/71 07/30/24 12:00 Pulse Ox 89 L 07/30/24 13:00 FiO2 70 07/30/24 13:18 Intake & Output 07/29/24 07/30/24 07/30/24 18:59 06:59 18:59 Intake Total 7228.016 9225.146 626 Output Total 385 380 290 Balance 787.975 9790.146 336 Weight 112.3 kg 114.8 kg Intake: IV 298 216 126 0.9 NACL 165 180 105 Piperacillin-Tazobactam 3 100 .375 gm In Sodium Chloride 0.9% 100 ml @ 25 mls/hr IVPB Q12HR [facility] Rx #:[id number] arterial line 33 36 21 Intake, IV Titration 400.929 9893.146 200 Amount Amiodarone 450 mg In 246.394 Dextrose 5% in Water 250 ml @ 0.5 MG/MIN 16.667 mls/hr IV .Q15H [facility] Rx#: [id number] DOBUTamine DRIP 500 mg In 244.956 247.696 Dextrose/Water 1 250ml. bag @ 5 MCG/KG/MIN 16.44 mls/hr IV .[id number] [facility] Rx #:[id number] Furosemide 100 mg In 100 83 100 Sodium Chloride 0.9% 90 ml @ 10 MG/HR 10 mls/hr IV .Q10H [facility] Rx#: [id number] Furosemide 100 mg In 20 Sodium Chloride 0.9% 90 ml @ 10 MG/HR 10 mls/hr IV .Q10H [facility] Rx#: [id number] Norepinephrine 32 mg In 149.854 300.355 Sodium Chloride 0.9% 218 ml @ 0.03 MCG/KG/MIN 1. 541 mls/hr IV .Q24H [facility] Rx#:[id number] Vasopressin 20 unit In 46.895 36.643 Sodium Chloride 0.9% 50 ml @ 0.03 UNITS/MIN 4.59 mls/hr IV .Q11H7M [facility] Rx# :[id number] propofoL 1,000 mg In 145.758 169.058 100 Empty Bag 1 bag @ 15 MCG/ KG/MIN 9.864 mls/hr IV . Q10H9M [facility] Rx#:[id number] Oral 300 Tube Feeding 80 250 Other 30 90 Output: Urine 385 380 290 Other: Voiding Method Indwelling Catheter Indwelling Catheter Indwelling Catheter ABP, PAP, CO, CI - Last Documented Arterial Blood Pressure 81/61 - Exam General: 69-year-old white male intubated, sedated, mechanically ventilated. Head: Atraumatic, normocephalic EENT: Dry mucous membranes positive icterus. No neck masses no JVD, endotracheal tube and orogastric tube are intact. Pulmonary: Symmetrical chest expansion, diminished breath sounds at the bases no crackles rhonchi or wheezes HEART EXAMINATION: Distant S1-S2, no S3 gallop, 2/6 systolic murmur throughout the precordium ABDOMEN: Positive ascites soft, nontender. Bowel sounds are heard. No organomegaly noted. EXTREMITIES: 3+ bipedal edema, diminished distal pulses bilaterally. NEUROLOGIC EXAMINATION: Could not assess, patient is sedated, on propofol, Psychiatric: Could not assess, on propofol. - Labs CBC & Chem 7: 07/30/24 04:23 07/30/24 04:23 Labs: Abnormal Lab Results - Last 24 Hours (Table) 07/29/24 07/29/24 07/29/24 Range/Units 17:25 17:55 23:19 WBC (3.8-10.6) k/uL RBC (4.30-5.90) m/uL Hgb (13.0-17.5) gm/dL Hct (39.0-53.0) % Plt Count (150-450) k/uL Neutrophils # (1.3-7.7) k/uL Lymphocytes # (1.0-4.8) k/uL PT (10.0-12.5) sec INR (<1.2) ABG pH (7.35-7.45) ABG pCO2 (35-45) mmHg ABG pO2 (83-108) mmHg ABG HCO3 (21-25) mmol/L ABG Total CO2 (19-24) mmol/L ABG O2 Saturation (94-97) % Potassium (3.5-5.1) mmol/L BUN (9-20) mg/dL Creatinine (0.66-1.25) mg/dL Glucose (74-99) mg/dL POC Glucose (mg/dL) 204 H 211 H 208 H (70-110) mg/dL Hemoglobin A1c (<=6.0) % 07/30/24 07/30/24 07/30/24 Range/Units 04:23 04:23 04:23 WBC 12.7 H (3.8-10.6) k/uL RBC 4.16 L (4.30-5.90) m/uL Hgb 12.8 L (13.0-17.5) gm/dL Hct 38.2 L (39.0-53.0) % Plt Count 92 L (150-450) k/uL Neutrophils # 11.0 H (1.3-7.7) k/uL Lymphocytes # 0.8 L (1.0-4.8) k/uL PT (10.0-12.5) sec INR (<1.2) ABG pH (7.35-7.45) ABG pCO2 (35-45) mmHg ABG pO2 (83-108) mmHg ABG HCO3 (21-25) mmol/L ABG Total CO2 (19-24) mmol/L ABG O2 Saturation (94-97) % Potassium 3.2 L (3.5-5.1) mmol/L BUN 127 H* (9-20) mg/dL Creatinine 4.54 H (0.66-1.25) mg/dL Glucose 195 H (74-99) mg/dL POC Glucose (mg/dL) (70-110) mg/dL Hemoglobin A1c 6.1 H (<=6.0) % 07/30/24 07/30/24 07/30/24 Range/Units 05:21 06:03 09:49 WBC (3.8-10.6) k/uL RBC (4.30-5.90) m/uL Hgb (13.0-17.5) gm/dL Hct (39.0-53.0) % Plt Count (150-450) k/uL Neutrophils # (1.3-7.7) k/uL Lymphocytes # (1.0-4.8) k/uL PT 19.6 H (10.0-12.5) sec INR 1.9 H (<1.2) ABG pH 7.53 H (7.35-7.45) ABG pCO2 32 L (35-45) mmHg ABG pO2 62 L (83-108) mmHg ABG HCO3 27 H (21-25) mmol/L ABG Total CO2 28 H (19-24) mmol/L ABG O2 Saturation 92.0 L (94-97) % Potassium (3.5-5.1) mmol/L BUN (9-20) mg/dL Creatinine (0.66-1.25) mg/dL Glucose (74-99) mg/dL POC Glucose (mg/dL) 207 H (70-110) mg/dL Hemoglobin A1c (<=6.0) % 07/30/24 Range/Units 12:21 WBC (3.8-10.6) k/uL RBC (4.30-5.90) m/uL Hgb (13.0-17.5) gm/dL Hct (39.0-53.0) % Plt Count (150-450) k/uL Neutrophils # (1.3-7.7) k/uL Lymphocytes # (1.0-4.8) k/uL PT (10.0-12.5) sec INR (<1.2) ABG pH (7.35-7.45) ABG pCO2 (35-45) mmHg ABG pO2 (83-108) mmHg ABG HCO3 (21-25) mmol/L ABG Total CO2 (19-24) mmol/L ABG O2 Saturation (94-97) % Potassium (3.5-5.1) mmol/L BUN (9-20) mg/dL Creatinine (0.66-1.25) mg/dL Glucose (74-99) mg/dL POC Glucose (mg/dL) 197 H (70-110) mg/dL Hemoglobin A1c (<=6.0) % Microbiology - Last 24 Hours (Table) 07/28/24 15:35 Gram Stain - Final Sputum Sputum Culture - Final Assessment and Plan Assessment: Impression: Acute hypoxic respiratory failure secondary to volume overload, suspect systolic congestive heart failure/acute Hypotension cardiogenic in nature, doubt sepsis. Remains empirically on antibiotics Acute metabolic encephalopathy Acute rhabdomyolysis Acute kidney injury secondary to rhabdomyolysis, suspect also cardiorenal/acute tubular necrosis Acute systolic congestive heart failure with LV dysfunction Atrial fibrillation with RVR Elevated liver enzymes History of alcoholism/alcohol abuse History of prostate cancer Electrolytes imbalance Coagulopathy with elevated INR secondary to liver disease Recommendation: Discussed and reviewed his clinical status yesterday with the son Discussed and reviewed his clinical status today with his sisters Made aware that the patient has extremely poor prognosis Family is seriously considering comfort care measures and terminal weaning In the meantime continue Hemodynamic support, patient is now on norepinephrine and vasopressin Empiric antibiotics, check blood cultures Continue Lasix drip Continue to monitor daily labs and renal profile Continue inotropes/dobutamine Continue amiodarone for atrial fibrillation Continue GI and DVT prophylaxis Prognosis is extremely poor and guarded and the patient is critically ill. Critical care time is over 30 minutes Time with Patient: Greater than 30
[2024-07-30] MEDS: POTASSIUM CHLORIDE 20 MEQ in SODIUM CHLORIDE 0.9% 100 ML IVPB ONE (16:14)
[2024-07-30 17:59] LABS: Glucose,Whole Blood 154 mg/dL (70-110)
[2024-07-31] LABS: Glucose,Whole Blood 168 mg/dL (70-110)
[2024-07-31] MEDS: POTASSIUM BICARBONATE/CIT AC 20 MEQ TABLET.EFF NG-TUBE SCH (01:11)
[2024-07-31 05:25] LABS: ABG Base Excess 3.8 mmol/L; ABG HCO3 26 mmol/L (21-25); ABG Oxygen Saturation 97.1 % (94-97); ABG PCO2 31 mmHg (35-45); ABG PH 7.53 (7.35-7.45); ABG PO2 83 mmHg (83-108); ABG TCO2 27 mmol/L (19-24); Allen Test Performed? Yes
[2024-07-31 06:08] LABS: Glucose,Whole Blood 127 mg/dL (70-110)
[2024-07-31 06:24] LABS: Basophils % (A) 0 %; Eosinophils % (A) 0 %; HCT 40.7 % (39.0-53.0); HGB 13.4 gm/dL (13.0-17.5); Hypochromasia Slight; Lymphocytes # (A) 0.9 k/uL (1.0-4.8); Lymphocytes % (A) 6 %; MCH 30.4 pg (25.0-35.0); MCHC 32.9 g/dL (31.0-37.0); MCV 92.3 fL (80.0-100.0); Mean Platelet Volume 13.5; Monocytes # (A) 0.8 k/uL (0-1.0); Monocytes % (A) 6 %; Neutrophils % (A) 85 %; RBC 4.41 m/uL (4.30-5.90); RDW 15.2 % (11.5-15.5); WBC 14.1 k/uL (3.8-10.6)
[2024-07-31 06:26] LABS: Platelet Count 86 k/uL (150-450)
[2024-07-31 06:51] LABS: African American GFR (CKD) 15 (>60 ml/min/1.73 sqM); Anion Gap 9 mmol/L; Calcium 8.4 mg/dL (8.4-10.2); Carbon Dioxide 25 mmol/L (22-30); Chloride 99 mmol/L (98-107); Glucose 144 mg/dL (74-99); Non-African American GFR(CKD) 13 (>60 ml/min/1.73 sqM); Potassium 3.5 mmol/L (3.5-5.1); Sodium 133 mmol/L (137-145)
[2024-07-31 07:07] LABS: Blood Urea Nitrogen 134 mg/dL (9-20)
--- NOTE | 2024-07-31 07:54 | XR ---
EXAMINATION TYPE: XR chest 1V portable DATE OF EXAM: 07/31/2024 COMPARISON: 07/30/2024 HISTORY: SOB, Follow Up FINDINGS: Indwelling tubes and catheters are unchanged. No change in bibasilar opacities. Stable appearance of the cardio-mediastinal structures at this time. Pleural effusion unchanged. IMPRESSION: 1. Stable portable chest. Clinical correlation and follow up until resolution is recommended. [facility], , 07/31/2024 7:51 AM
--- NOTE | 2024-07-31 09:05 | P.PN ---
Subjective Progress Note Date: 07/31/24 The patient is a 69-year-old male who is currently admitted with rhabdomyolysis, acute kidney injury, and congestive heart failure. Patient is currently intubated on multiple vasopressors, IV amiodarone and IV Lasix. There has not been no clinical improvement over the last 24 hours. The patient has an ex tremely poor prognosis and this was discussed with family yesterday by the medical team. GENERAL: Ill-appearing, sedated on ventilator NECK: Supple without JVD or thyromegaly. LUNGS: Breath sounds coarse to auscultation bilaterally. Respiration equal and unlabored. Bilateral rhonchi. HEART: Irregular rate and rhythm without murmurs, rubs or gallops. S1 and S2 heard. Notably tachycardic. EXTREMITIES: +3 edema. Severe scrotal edema. No clubbing or cyanosis. Peripheral pulses intact and strong. TELEMETRY: Atrial fibrillation with a heart rate in the 120s LABS: WBC 14.1, hemoglobin 13.4, hematocrit 40.7, platelet 86, sodium 133, potassium 3.5, BUN 134, creatinine 4.51 IMPRESSION: Atrial fibrillation with RVR Elevated troponins, in the setting of rhabdomyolysis and atrial fibrillation Systolic heart failure exacerbation Cardiomyopathy, unspecified, EF 15 to 20% Rhabdomyolysis Acute kidney injury Acute hypoxic respiratory failure Elevated liver enzymes History of EtOH abuse History of prostate cancer PLAN: Continue IV amiodarone for rate control Unable to start medical therapy for cardiomyopathy due to clinical status Recommend hospice care as the patient has an extremely poor prognosis I am dictating on behalf of Dr Wellington Maria's history/physical and assessment/plan. Objective - Vital Signs Vital signs: Vital Signs Temp 97.9 F 07/31/24 08:00 Pulse 105 H 07/31/24 08:15 Resp 17 07/31/24 08:15 BP 99/87 07/31/24 08:15 Pulse Ox 95 07/31/24 08:15 FiO2 70 07/31/24 08:00 Intake & Output 07/30/24 07/31/24 07/31/24 18:59 06:59 18:59 Intake Total 3536.918 3563.478 623.384 Output Total 470 330 110 Balance 797.243 730.478 513.384 Weight 115.4 kg Intake: IV 234 298 31 0.9 NACL 195 165 25 Piperacillin-Tazobactam 3 100 .375 gm In Sodium Chloride 0.9% 100 ml @ 25 mls/hr IVPB Q12HR [facility] Rx #:[id number] arterial line 39 33 6 Intake, IV Titration 733.243 520.478 552.384 Amount Amiodarone 450 mg In 250 Dextrose 5% in Water 250 ml @ 0.5 MG/MIN 16.667 mls/hr IV .Q15H [facility] Rx#: [id number] DOBUTamine DRIP 500 mg In 237.558 250 Dextrose/Water 1 250ml. bag @ 5 MCG/KG/MIN 16.44 mls/hr IV .[id number] [facility] Rx #:[id number] Furosemide 100 mg In 177.833 88.5 Sodium Chloride 0.9% 90 ml @ 10 MG/HR 10 mls/hr IV .Q10H [facility] Rx#: [id number] Norepinephrine 32 mg In 164.148 244.296 Sodium Chloride 0.9% 218 ml @ 0.03 MCG/KG/MIN 1. 541 mls/hr IV .Q24H [facility] Rx#:[id number] Vasopressin 20 unit In 61.2 46.206 Sodium Chloride 0.9% 50 ml @ 0.03 UNITS/MIN 4.59 mls/hr IV .Q11H7M [facility] Rx# :[id number] propofoL 1,000 mg In 153.704 120.778 11.882 Empty Bag 1 bag @ 15 MCG/ KG/MIN 9.864 mls/hr IV . Q10H9M [facility] Rx#:[id number] Oral 300 Tube Feeding 152 10 Other 90 30 Output: Urine 470 330 110 Other: Voiding Method Indwelling Catheter Indwelling Catheter Indwelling Catheter ABP, PAP, CO, CI - Last Documented Arterial Blood Pressure 90/65 - Labs CBC & Chem 7: 07/31/24 05:18 07/31/24 05:18 Labs: Abnormal Lab Results - Last 24 Hours (Table) 07/30/24 07/30/24 07/30/24 Range/Units 04:23 09:49 12:21 WBC (3.8-10.6) k/uL Plt Count (150-450) k/uL Neutrophils # (1.3-7.7) k/uL Lymphocytes # (1.0-4.8) k/uL PT 19.6 H (10.0-12.5) sec INR 1.9 H (<1.2) ABG pH (7.35-7.45) ABG pCO2 (35-45) mmHg ABG HCO3 (21-25) mmol/L ABG Total CO2 (19-24) mmol/L ABG O2 Saturation (94-97) % Sodium (137-145) mmol/L BUN (9-20) mg/dL Creatinine (0.66-1.25) mg/dL Glucose (74-99) mg/dL POC Glucose (mg/dL) 197 H (70-110) mg/dL Hemoglobin A1c 6.1 H (<=6.0) % 07/30/24 07/30/24 07/31/24 Range/Units 17:58 23:59 05:18 WBC 14.1 H (3.8-10.6) k/uL Plt Count 86 L (150-450) k/uL Neutrophils # 12.0 H (1.3-7.7) k/uL Lymphocytes # 0.9 L (1.0-4.8) k/uL PT (10.0-12.5) sec INR (<1.2) ABG pH (7.35-7.45) ABG pCO2 (35-45) mmHg ABG HCO3 (21-25) mmol/L ABG Total CO2 (19-24) mmol/L ABG O2 Saturation (94-97) % Sodium (137-145) mmol/L BUN (9-20) mg/dL Creatinine (0.66-1.25) mg/dL Glucose (74-99) mg/dL POC Glucose (mg/dL) 154 H 168 H (70-110) mg/dL Hemoglobin A1c (<=6.0) % 07/31/24 07/31/24 07/31/24 Range/Units 05:18 05:20 06:07 WBC (3.8-10.6) k/uL Plt Count (150-450) k/uL Neutrophils # (1.3-7.7) k/uL Lymphocytes # (1.0-4.8) k/uL PT (10.0-12.5) sec INR (<1.2) ABG pH 7.53 H (7.35-7.45) ABG pCO2 31 L (35-45) mmHg ABG HCO3 26 H (21-25) mmol/L ABG Total CO2 27 H (19-24) mmol/L ABG O2 Saturation 97.1 H (94-97) % Sodium 133 L (137-145) mmol/L BUN 134 H* (9-20) mg/dL Creatinine 4.51 H (0.66-1.25) mg/dL Glucose 144 H (74-99) mg/dL POC Glucose (mg/dL) 127 H (70-110) mg/dL Hemoglobin A1c (<=6.0) % Microbiology - Last 24 Hours (Table) 07/28/24 15:35 Gram Stain - Final Sputum Sputum Culture - Final
[2024-07-31] MEDS: POTASSIUM BICARBONATE/CIT AC 20 MEQ TABLET.EFF PO ONE (10:31)
--- NOTE | 2024-07-31 10:40 | P.PN ---
Subjective Progress Note Date: 07/31/24 This is a 69-year-old white male with history of alcoholism, lives at home by himself, patient presented to the ER yesterday after he was found unresponsive on the floor, and he was discovered by his neighbor. His unresponsiveness is of unknown duration, apparently his neighbor saw him last a week prior. Patient was found on the floor, was noted to be quite edematous, and apparently there was food burning on the stove. Patient could not respond to any questions. And his sister was at bedside all she knows is the patient has been diagnosed with prostate cancer and untreated. She also told me that he has history of alcoholism. Patient was admitted to the ICU, and he was noted to be hypotensive he was also noted to have ascites, pulmonary edema based on chest x-ray, he was also noted to have severe LV dysfunction with ejection fraction of 20%, his labs showed relatively normal CBC, platelets are 1 19,000's, INR was extremely elevated received fresh frozen plasma and vitamin K, last INR is 3 his bicarb is 13 BUN is 113 creatinine 4.25. CPK was also elevated 1264. Her enzymes elevated with AST of 343 and ALT of 164 patient is obtunded, restless, agitated, hence I have recommended starting the patient on Precedex, I also recommended pressors in the form of norepinephrine, may add vasopressin may also add dobutamine. 07/29/2024 Patient seen and examined at bedside. Patient still in the ICU and is still obtunded. Patient on mechanical ventilator tidal volume 500, rate of 20, FiO2 of 100, increased the PEEP to 10. Chest x-ray is stable and shows no change from yesterday. ABG today pH of 7.54, CO2 30, O2 70, bicarb 26 with FiO2 of 70. Patient currently on IV fluids, Lasix IV 5 mg/h, vasopressin IV 0.04 units/h, Levophed IV 0.25 mcg/kg/min, dobutamine IV 5 mcg/kg/min, amiodarone IV 0.5mcg/min, propofol IV 25mcg/kg/min and on Zosyn 3.375 g IVPB. Currently not on DVT prophylaxis due to low platelets and elevated PT and INR on admission. Labs today show WBC 8.6 hemoglobin 11.3 platelet low at 103, BUN 122 creatinine 4.36, bicarb 24. 07/30/2024 Patient seen and examined at bedside. Patient still in the ICU and is still obtunded. Patient on ventilator with settings of tidal volume 450, assist-control rate of 20, FiO2 70, increased the PEEP to 12. Chest x-ray is shows bilateral pleural effusions and shows no improvement from yesterday. Urine output around 40 cc/h in the last 24 hours. ABG today pH 7.53, carbon dioxide 32, oxygen 62, bicarb 27, FiO2 70%. Patient remains sedated on propofol 25 mcg/kg/min. Still on empiric Zosyn 3.375g IVPB day 2. Patient currently on Lasix 10 mg/h IV, Levophed 0.3 mcg/kg/min, vasopressin 0.03 units/min, dobutamine 5 mcg/kg/min, amiodarone decreased to 0.5 mg/min IV and normal saline 0.9% 10 mL/h. Started on vital AF via OG tube at rate goal of 36 mL/h DVT prophylaxis still deferred. Labs today show WBC 12.7, hemoglobin 12.8, platelet decreased to 92, PT improved to 19.6, INR improved to 1.9, potassium 3.2, BUN 127, creatinine 4.54. 07/31/2024 patient seen and examined at bedside. Patient still in the ICU, intubated and on ventilation, more responsive to verbal and painful stimuli but not awake or alert. Overnight patient became agitated when propofol was attempted to be weaned off. Patient on ventilator settings tidal volume 450, assist-control rate of 22, FiO2 60, PEEP of 12. ABG still marginal at pH 7.53, CO2 31, O2 83, bicarb 26 at FiO2 of 70. Chest x-ray shows no improvement from yesterday. Abdominal ultrasound reported minimal ascites. Chest ultrasound showed right pleural effusion with a pocket size of 10.4 cm and a left pleural effusion with a pocket size of 9.4 cm. Patient still on multiple drips particularly vasopressin at 0.03 units/min, dobutamine 5 mcg/kg/min, Levophed 0.03 mcg/kg/min, amiodarone 0.5 mg/min, and Lasix 10 mg/h. Propofol decreased to 15 mcg/kg/min. Still on Zosyn IVPB on day 3. Labs reviewed today show WBC elevated at 14.1, hemoglobin 13.4, platelet decreased to 86, sodium 133, potassium 3.5, bicarb 25, BUN 134, creatinine 4.51, glucose 144. Objective - Vital Signs Vital signs: Vital Signs Temp 97.9 F 07/31/24 08:00 Pulse 105 H 07/31/24 08:15 Resp 17 07/31/24 08:15 BP 99/87 07/31/24 08:15 Pulse Ox 95 07/31/24 08:15 FiO2 60 07/31/24 09:42 Intake & Output 07/30/24 07/31/24 07/31/24 18:59 06:59 18:59 Intake Total 3212.711 8554.478 623.439 Output Total 470 330 110 Balance 797.243 730.478 513.439 Weight 115.4 kg Intake: IV 234 298 31 0.9 NACL 195 165 25 Piperacillin-Tazobactam 3 100 .375 gm In Sodium Chloride 0.9% 100 ml @ 25 mls/hr IVPB Q12HR [facility] Rx #:[id number] arterial line 39 33 6 Intake, IV Titration 733.243 520.478 552.439 Amount Amiodarone 450 mg In 250 Dextrose 5% in Water 250 ml @ 0.5 MG/MIN 16.667 mls/hr IV .Q15H [facility] Rx#: [id number] DOBUTamine DRIP 500 mg In 237.558 250 Dextrose/Water 1 250ml. bag @ 5 MCG/KG/MIN 16.44 mls/hr IV .[id number] [facility] Rx #:[id number] Furosemide 100 mg In 177.833 88.5 Sodium Chloride 0.9% 90 ml @ 10 MG/HR 10 mls/hr IV .Q10H [facility] Rx#: [id number] Norepinephrine 32 mg In 164.148 244.296 Sodium Chloride 0.9% 218 ml @ 0.03 MCG/KG/MIN 1. 541 mls/hr IV .Q24H [facility] Rx#:[id number] Vasopressin 20 unit In 61.2 46.206 Sodium Chloride 0.9% 50 ml @ 0.03 UNITS/MIN 4.59 mls/hr IV .Q11H7M [facility] Rx# :[id number] propofoL 1,000 mg In 153.704 120.778 11.937 Empty Bag 1 bag @ 15 MCG/ KG/MIN 9.864 mls/hr IV . Q10H9M [facility] Rx#:[id number] Oral 300 Tube Feeding 152 10 Other 90 30 Output: Urine 470 330 110 Other: Voiding Method Indwelling Catheter Indwelling Catheter Indwelling Catheter ABP, PAP, CO, CI - Last Documented Arterial Blood Pressure 90/65 - Exam General: 69-year-old white male nontoxic, sedated, on mechanical ventilator Head: Atraumatic, normocephalic EENT: Dry mucous membranes positive icterus. No neck masses no JVD Pulmonary: Diminished breath sound bilaterally no crackles rhonchi or wheezes HEART EXAMINATION: irregular irregular rhythm, 2/6 systolic murmur throughout the precordium ABDOMEN: Positive ascites no change from yesterday, soft, nontender. Bowel sounds are heard. No organomegaly noted. EXTREMITIES: 3+ bilateral lower extremity pitting edema with diminished distal pulses bilaterally. NEUROLOGIC EXAMINATION: responds to verbal painful stimuli, no purposeful movement Psychiatric: Could not assess - Labs CBC & Chem 7: 07/31/24 05:18 07/31/24 05:18 Labs: Abnormal Lab Results - Last 24 Hours (Table) 07/30/24 07/30/24 07/30/24 Range/Units 04:23 09:49 12:21 WBC (3.8-10.6) k/uL Plt Count (150-450) k/uL Neutrophils # (1.3-7.7) k/uL Lymphocytes # (1.0-4.8) k/uL PT 19.6 H (10.0-12.5) sec INR 1.9 H (<1.2) ABG pH (7.35-7.45) ABG pCO2 (35-45) mmHg ABG HCO3 (21-25) mmol/L ABG Total CO2 (19-24) mmol/L ABG O2 Saturation (94-97) % Sodium (137-145) mmol/L BUN (9-20) mg/dL Creatinine (0.66-1.25) mg/dL Glucose (74-99) mg/dL POC Glucose (mg/dL) 197 H (70-110) mg/dL Hemoglobin A1c 6.1 H (<=6.0) % 07/30/24 07/30/24 07/31/24 Range/Units 17:58 23:59 05:18 WBC 14.1 H (3.8-10.6) k/uL Plt Count 86 L (150-450) k/uL Neutrophils # 12.0 H (1.3-7.7) k/uL Lymphocytes # 0.9 L (1.0-4.8) k/uL PT (10.0-12.5) sec INR (<1.2) ABG pH (7.35-7.45) ABG pCO2 (35-45) mmHg ABG HCO3 (21-25) mmol/L ABG Total CO2 (19-24) mmol/L ABG O2 Saturation (94-97) % Sodium (137-145) mmol/L BUN (9-20) mg/dL Creatinine (0.66-1.25) mg/dL Glucose (74-99) mg/dL POC Glucose (mg/dL) 154 H 168 H (70-110) mg/dL Hemoglobin A1c (<=6.0) % 07/31/24 07/31/24 07/31/24 Range/Units 05:18 05:20 06:07 WBC (3.8-10.6) k/uL Plt Count (150-450) k/uL Neutrophils # (1.3-7.7) k/uL Lymphocytes # (1.0-4.8) k/uL PT (10.0-12.5) sec INR (<1.2) ABG pH 7.53 H (7.35-7.45) ABG pCO2 31 L (35-45) mmHg ABG HCO3 26 H (21-25) mmol/L ABG Total CO2 27 H (19-24) mmol/L ABG O2 Saturation 97.1 H (94-97) % Sodium 133 L (137-145) mmol/L BUN 134 H* (9-20) mg/dL Creatinine 4.51 H (0.66-1.25) mg/dL Glucose 144 H (74-99) mg/dL POC Glucose (mg/dL) 127 H (70-110) mg/dL Hemoglobin A1c (<=6.0) % Microbiology - Last 24 Hours (Table) 07/28/24 15:35 Gram Stain - Final Sputum Sputum Culture - Final Assessment and Plan Assessment: Impression: Acute hypoxic respiratory failure secondary to volume overload from acute systolic congestive heart failure Hypotension, cardiogenic in nature. On empiric antibiotics Acute metabolic encephalopathy Acute rhabdomyolysis Acute kidney injury secondary to rhabdomyolysis, suspect cardiorenal/cute tubular necrosis Acute systolic congestive heart failure with LV dysfunction (EF 15-20% on echo) Atrial fibrillation with RVR Coagulopathy with elevated INR secondary to liver disease Electrolytes imbalance Elevated liver enzymes History of alcoholism/alcohol abuse History of prostate cancer Recommendation: Family still in discussion regarding considering comfort care measures and terminal weaning. Continue ventilation support Continue hemodynamic support, on dobutamine, levophed and vasopressin Hold sedation with Propofol 15 mcg/kg/min IV. Attempt to wean off sedation today. Monitor mental status Continue empiric Zosyn IVPB every 6 hours Continue Lasix 10mg/hr IV Per Cardiology, Amiodarone 0.5mg/min IV for AFib Vital AF via OGT Follow up blood cultures CBC and BMP at AM Close monitoring of his renal profile and urine output Avoid nephrotoxic agents Prognosis: Patient is critically ill and still requires mechanical ventilation and hemodynamic support. Prognosis is extremely poor and guarded Critical care time is over 30 minutes not including time spent on procedures Time with Patient: Greater than 30
--- NOTE | 2024-07-31 10:45 | P.PN ---
Subjective Patient is seen in follow-up for acute kidney injury. Creatinine stable. Currently on amiodarone drip for A-fib. Also remains on Levophed, vasopressin, dobutamine and Lasix drip. Urine output 30 to 75 cc an hour. Intubated. Vital signs -in A-fib. On vasopressor support. General: Resting in bed. HEENT: Intubated. LUNGS: Scattered rhonchi. HEART: Irregular rate and rhythm. ABDOMEN: No distention. EXTREMITITES: 2+ edema. Objective - Vital Signs Vital signs: Vital Signs Temp 97.9 F 07/31/24 08:00 Pulse 116 H 07/31/24 10:00 Resp 22 07/31/24 10:00 BP 99/87 07/31/24 08:15 Pulse Ox 96 07/31/24 10:00 FiO2 60 07/31/24 09:42 Intake & Output 07/30/24 07/31/24 07/31/24 18:59 06:59 18:59 Intake Total 0890.071 7937.478 649.439 Output Total 470 330 260 Balance 797.243 730.478 389.439 Weight 115.4 kg Intake: IV 234 298 57 0.9 NACL 195 165 45 Piperacillin-Tazobactam 3 100 .375 gm In Sodium Chloride 0.9% 100 ml @ 25 mls/hr IVPB Q12HR [facility] Rx #:[id number] arterial line 39 33 12 Intake, IV Titration 733.243 520.478 552.439 Amount Amiodarone 450 mg In 250 Dextrose 5% in Water 250 ml @ 0.5 MG/MIN 16.667 mls/hr IV .Q15H [facility] Rx#: [id number] DOBUTamine DRIP 500 mg In 237.558 250 Dextrose/Water 1 250ml. bag @ 5 MCG/KG/MIN 16.44 mls/hr IV .[id number] [facility] Rx #:[id number] Furosemide 100 mg In 177.833 88.5 Sodium Chloride 0.9% 90 ml @ 10 MG/HR 10 mls/hr IV .Q10H [facility] Rx#: [id number] Norepinephrine 32 mg In 164.148 244.296 Sodium Chloride 0.9% 218 ml @ 0.03 MCG/KG/MIN 1. 541 mls/hr IV .Q24H [facility] Rx#:[id number] Vasopressin 20 unit In 61.2 46.206 Sodium Chloride 0.9% 50 ml @ 0.03 UNITS/MIN 4.59 mls/hr IV .Q11H7M [facility] Rx# :[id number] propofoL 1,000 mg In 153.704 120.778 11.937 Empty Bag 1 bag @ 15 MCG/ KG/MIN 9.864 mls/hr IV . Q10H9M [facility] Rx#:[id number] Oral 300 Tube Feeding 152 10 Other 90 30 Output: Urine 470 330 260 Other: Voiding Method Indwelling Catheter Indwelling Catheter Indwelling Catheter ABP, PAP, CO, CI - Last Documented Arterial Blood Pressure 91/68 - Labs CBC & Chem 7: 07/31/24 05:18 07/31/24 05:18 Labs: Abnormal Lab Results - Last 24 Hours (Table) 07/30/24 07/30/24 07/30/24 Range/Units 04:23 12:21 17:58 WBC (3.8-10.6) k/uL Plt Count (150-450) k/uL Neutrophils # (1.3-7.7) k/uL Lymphocytes # (1.0-4.8) k/uL ABG pH (7.35-7.45) ABG pCO2 (35-45) mmHg ABG HCO3 (21-25) mmol/L ABG Total CO2 (19-24) mmol/L ABG O2 Saturation (94-97) % Sodium (137-145) mmol/L BUN (9-20) mg/dL Creatinine (0.66-1.25) mg/dL Glucose (74-99) mg/dL POC Glucose (mg/dL) 197 H 154 H (70-110) mg/dL Hemoglobin A1c 6.1 H (<=6.0) % 07/30/24 07/31/24 07/31/24 Range/Units 23:59 05:18 05:18 WBC 14.1 H (3.8-10.6) k/uL Plt Count 86 L (150-450) k/uL Neutrophils # 12.0 H (1.3-7.7) k/uL Lymphocytes # 0.9 L (1.0-4.8) k/uL ABG pH (7.35-7.45) ABG pCO2 (35-45) mmHg ABG HCO3 (21-25) mmol/L ABG Total CO2 (19-24) mmol/L ABG O2 Saturation (94-97) % Sodium 133 L (137-145) mmol/L BUN 134 H* (9-20) mg/dL Creatinine 4.51 H (0.66-1.25) mg/dL Glucose 144 H (74-99) mg/dL POC Glucose (mg/dL) 168 H (70-110) mg/dL Hemoglobin A1c (<=6.0) % 07/31/24 07/31/24 Range/Units 05:20 06:07 WBC (3.8-10.6) k/uL Plt Count (150-450) k/uL Neutrophils # (1.3-7.7) k/uL Lymphocytes # (1.0-4.8) k/uL ABG pH 7.53 H (7.35-7.45) ABG pCO2 31 L (35-45) mmHg ABG HCO3 26 H (21-25) mmol/L ABG Total CO2 27 H (19-24) mmol/L ABG O2 Saturation 97.1 H (94-97) % Sodium (137-145) mmol/L BUN (9-20) mg/dL Creatinine (0.66-1.25) mg/dL Glucose (74-99) mg/dL POC Glucose (mg/dL) 127 H (70-110) mg/dL Hemoglobin A1c (<=6.0) % Microbiology - Last 24 Hours (Table) 07/28/24 15:35 Gram Stain - Final Sputum Sputum Culture - Final Assessment and Plan Plan: Plan: 1. Acute kidney injury secondary to hemodynamic ATN. Creatinine 4.6 on admission and is fairly stable at 4.51 today. Urine output 30 to 75 cc an hour. Unknown baseline renal function. No hydronephrosis noted on imaging. 2. A-fib with RVR maintained on amiodarone drip. 3. Volume overload. 4. Acute on chronic systolic CHF ejection fraction of 15 to 20% with severe mitral and tricuspid regurgitation. 5. Hypokalemia from poor intake and diuresis. Being replaced. 6. Mild rhabdomyolysis due to fall/immobility. Improved. 7. Acute hypoxic respiratory failure secondary to volume overload. Plan: Maintain Lasix drip. Dobutamine per cardiology. Wean vasopressors and FiO2. Continue to monitor renal function and urine output. Receiving tube feeds. Potassium replaced. Continue to assess daily for need for renal replacement therapy. Remains hemodynamically very unstable. Prognosis guarded. Comfort measures being considered.
[2024-07-31 11:49] LABS: Glucose,Whole Blood 131 mg/dL (70-110)
[2024-07-31 18:07] LABS: Glucose,Whole Blood 135 mg/dL (70-110)
[2024-07-31 23:56] LABS: Glucose,Whole Blood 136 mg/dL (70-110)
[2024-08-01 05:24] LABS: Glucose,Whole Blood 136 mg/dL (70-110)
[2024-08-01 05:26] LABS: ABG Base Excess 4.5 mmol/L; ABG HCO3 26 mmol/L (21-25); ABG PCO2 30 mmHg (35-45); ABG PH 7.55 (7.35-7.45); ABG PO2 89 mmHg (83-108); ABG TCO2 27 mmol/L (19-24); Allen Test Performed? Yes
[2024-08-01] MEDS: AMIODARONE 450 MG in DEXTROSE 5% IN WATER 250 ML IV SCH (08:45)
[2024-08-01 09:22] VITALS: TEMP 97.8
--- NOTE | 2024-08-01 10:22 | P.PN ---
Subjective Patient is seen in follow-up for acute kidney injury. Creatinine stable. As of yesterday currently on amiodarone drip for A-fib. Also remains on Levophed, vasopressin, dobutamine and Lasix drip. Urine output improved and is now over 100 cc an hour. Vital signs -in A-fib. On vasopressor support. General: Resting in bed. HEENT: Intubated. LUNGS: Scattered rhonchi. HEART: Irregular rate and rhythm. ABDOMEN: No distention. EXTREMITITES: 2+ edema. Objective - Vital Signs Vital signs: Vital Signs Temp 97.8 F 08/01/24 08:00 Pulse 113 H 08/01/24 10:00 Resp 22 08/01/24 10:00 BP 98/87 08/01/24 04:00 Pulse Ox 98 08/01/24 10:00 FiO2 60 08/01/24 09:44 Intake & Output 07/31/24 08/01/24 08/01/24 18:59 06:59 18:59 Intake Total 364.833 1285.022 69 Output Total 550 1270 440 Balance 378.233 -74.978 -371 Weight 118.388 kg Intake: IV 161 269 69 0.9 NACL 125 130 60 Piperacillin-Tazobactam 3 100 .375 gm In Sodium Chloride 0.9% 100 ml @ 25 mls/hr IVPB Q12HR [facility] Rx #:[id number] arterial line 36 39 9 Intake, IV Titration 657.233 916.022 Amount DOBUTamine DRIP 500 mg In 250 250 Dextrose/Water 1 250ml. bag @ 5 MCG/KG/MIN 16.44 mls/hr IV .[id number] [facility] Rx #:[id number] Furosemide 100 mg In 100 164.500 Sodium Chloride 0.9% 90 ml @ 10 MG/HR 10 mls/hr IV .Q10H [facility] Rx#: [id number] Norepinephrine 32 mg In 244.296 226.828 Sodium Chloride 0.9% 218 ml @ 0.03 MCG/KG/MIN 1. 541 mls/hr IV .Q24H [facility] Rx#:[id number] Vasopressin 20 unit In 51.000 75.506 Sodium Chloride 0.9% 50 ml @ 0.03 UNITS/MIN 4.59 mls/hr IV .Q11H7M [facility] Rx# :[id number] propofoL 1,000 mg In 11.937 199.188 Empty Bag 1 bag @ 15 MCG/ KG/MIN 9.864 mls/hr IV . Q10H9M [facility] Rx#:[id number] Tube Feeding 50 10 Other 60 Output: Urine 550 1270 440 Other: Voiding Method Indwelling Catheter Indwelling Catheter Indwelling Catheter ABP, PAP, CO, CI - Last Documented Arterial Blood Pressure 103/74 - Labs CBC & Chem 7: 07/31/24 05:18 07/31/24 05:18 Labs: Abnormal Lab Results - Last 24 Hours (Table) 07/31/24 07/31/24 07/31/24 Range/Units 11:47 18:06 23:55 ABG pH (7.35-7.45) ABG pCO2 (35-45) mmHg ABG HCO3 (21-25) mmol/L ABG Total CO2 (19-24) mmol/L ABG O2 Saturation (94-97) % POC Glucose (mg/dL) 131 H 135 H 136 H (70-110) mg/dL 08/01/24 08/01/24 Range/Units 05:18 05:23 ABG pH 7.55 H (7.35-7.45) ABG pCO2 30 L (35-45) mmHg ABG HCO3 26 H (21-25) mmol/L ABG Total CO2 27 H (19-24) mmol/L ABG O2 Saturation 98.0 H (94-97) % POC Glucose (mg/dL) 136 H (70-110) mg/dL Microbiology - Last 24 Hours (Table) 07/30/24 23:57 Blood Culture - Preliminary Blood Assessment and Plan Plan: Plan: 1. Acute kidney injury secondary to hemodynamic ATN. Creatinine 4.6 on admission and is fairly stable at 4.51 yesterday. Nonoliguric. Unknown baseline renal function. No hydronephrosis noted on imaging. 2. A-fib with RVR maintained on amiodarone drip. 3. Volume overload. 4. Acute on chronic systolic CHF ejection fraction of 15 to 20% with severe mitral and tricuspid regurgitation. 5. Hypokalemia from poor intake and diuresis. Being replaced. 6. Mild rhabdomyolysis due to fall/immobility. Improved. 7. Acute hypoxic respiratory failure secondary to volume overload. Plan: Maintain Lasix drip. Dobutamine per cardiology. Wean vasopressors and FiO2. Continue to monitor renal function and urine output. Receiving tube feeds. Potassium replaced. Continue to assess daily for need for renal replacement therapy. Remains hemodynamically very unstable. Prognosis guarded. Plan for comfort measures today.
[2024-08-01 10:27] LABS: Basophils # (A) 0.1 k/uL (0-0.2); Basophils % (A) 0 %; Eosinophils % (A) 0 %; HCT 40.5 % (39.0-53.0); HGB 13.6 gm/dL (13.0-17.5); Hypochromasia Slight; Lymphocytes # (A) 1.1 k/uL (1.0-4.8); Lymphocytes % (A) 8 %; MCH 30.5 pg (25.0-35.0); MCHC 33.6 g/dL (31.0-37.0); MCV 90.8 fL (80.0-100.0); Mean Platelet Volume 12.9; Monocytes % (A) 7 %; Neutrophils # (A) 11.7 k/uL (1.3-7.7); Neutrophils % (A) 82 %; Poikilocytosis Slight; RBC 4.46 m/uL (4.30-5.90); RDW 15.2 % (11.5-15.5); WBC 14.2 k/uL (3.8-10.6)
[2024-08-01 10:47] LABS: African American GFR (CKD) 16 (>60 ml/min/1.73 sqM); Anion Gap 11 mmol/L; Calcium 8.5 mg/dL (8.4-10.2); Carbon Dioxide 27 mmol/L (22-30); Chloride 100 mmol/L (98-107); Glucose 131 mg/dL (74-99); Non-African American GFR(CKD) 14 (>60 ml/min/1.73 sqM); Potassium 3.5 mmol/L (3.5-5.1); Sodium 138 mmol/L (137-145)
[2024-08-01 10:57] LABS: Platelet Count 69 k/uL (150-450)
[2024-08-01 11:25] VITALS: BMI 35.4
[2024-08-01 11:43] LABS: Blood Urea Nitrogen 136 mg/dL (9-20)
--- NOTE | 2024-08-01 11:48 | P.PN ---
Subjective Progress Note Date: 08/01/24 This is a 69-year-old white male with history of alcoholism, lives at home by himself, patient presented to the ER yesterday after he was found unresponsive on the floor, and he was discovered by his neighbor. His unresponsiveness is of unknown duration, apparently his neighbor saw him last a week prior. Patient was found on the floor, was noted to be quite edematous, and apparently there was food burning on the stove. Patient could not respond to any questions. And his sister was at bedside all she knows is the patient has been diagnosed with prostate cancer and untreated. She also told me that he has history of alcoholism. Patient was admitted to the ICU, and he was noted to be hypotensive he was also noted to have ascites, pulmonary edema based on chest x-ray, he was also noted to have severe LV dysfunction with ejection fraction of 20%, his labs showed relatively normal CBC, platelets are 1 19,000's, INR was extremely elevated received fresh frozen plasma and vitamin K, last INR is 3 his bicarb is 13 BUN is 113 creatinine 4.25. CPK was also elevated 1264. Her enzymes elevated with AST of 343 and ALT of 164 patient is obtunded, restless, agitated, hence I have recommended starting the patient on Precedex, I also recommended pressors in the form of norepinephrine, may add vasopressin may also add dobutamine. 07/29/2024 Patient seen and examined at bedside. Patient still in the ICU and is still obtunded. Patient on mechanical ventilator tidal volume 500, rate of 20, FiO2 of 100, increased the PEEP to 10. Chest x-ray is stable and shows no change from yesterday. ABG today pH of 7.54, CO2 30, O2 70, bicarb 26 with FiO2 of 70. Patient currently on IV fluids, Lasix IV 5 mg/h, vasopressin IV 0.04 units/h, Levophed IV 0.25 mcg/kg/min, dobutamine IV 5 mcg/kg/min, amiodarone IV 0.5mcg/min, propofol IV 25mcg/kg/min and on Zosyn 3.375 g IVPB. Currently not on DVT prophylaxis due to low platelets and elevated PT and INR on admission. Labs today show WBC 8.6 hemoglobin 11.3 platelet low at 103, BUN 122 creatinine 4.36, bicarb 24. 07/30/2024 Patient seen and examined at bedside. Patient still in the ICU and is still obtunded. Patient on ventilator with settings of tidal volume 450, assist-control rate of 20, FiO2 70, increased the PEEP to 12. Chest x-ray is shows bilateral pleural effusions and shows no improvement from yesterday. Urine output around 40 cc/h in the last 24 hours. ABG today pH 7.53, carbon dioxide 32, oxygen 62, bicarb 27, FiO2 70%. Patient remains sedated on propofol 25 mcg/kg/min. Still on empiric Zosyn 3.375g IVPB day 2. Patient currently on Lasix 10 mg/h IV, Levophed 0.3 mcg/kg/min, vasopressin 0.03 units/min, dobutamine 5 mcg/kg/min, amiodarone decreased to 0.5 mg/min IV and normal saline 0.9% 10 mL/h. Started on vital AF via OG tube at rate goal of 36 mL/h DVT prophylaxis still deferred. Labs today show WBC 12.7, hemoglobin 12.8, platelet decreased to 92, PT improved to 19.6, INR improved to 1.9, potassium 3.2, BUN 127, creatinine 4.54. 07/31/2024 patient seen and examined at bedside. Patient still in the ICU, intubated and on ventilation, more responsive to verbal and painful stimuli but not awake or alert. Overnight patient became agitated when propofol was attempted to be weaned off. Patient on ventilator settings tidal volume 450, assist-control rate of 22, FiO2 60, PEEP of 12. ABG still marginal at pH 7.53, CO2 31, O2 83, bicarb 26 at FiO2 of 70. Chest x-ray shows no improvement from yesterday. Abdominal ultrasound reported minimal ascites. Chest ultrasound showed right pleural effusion with a pocket size of 10.4 cm and a left pleural effusion with a pocket size of 9.4 cm. Patient still on multiple drips particularly vasopressin at 0.03 units/min, dobutamine 5 mcg/kg/min, Levophed 0.03 mcg/kg/min, amiodarone 0.5 mg/min, and Lasix 10 mg/h. Propofol decreased to 15 mcg/kg/min. Still on Zosyn IVPB on day 3. Labs reviewed today show WBC elevated at 14.1, hemoglobin 13.4, platelet decreased to 86, sodium 133, potassium 3.5, bicarb 25, BUN 134, creatinine 4.51, glucose 144. 08/01/2024 Patient seen and examined at bedside. Patient still in the ICU, intubated and on ventilation, more responsive to verbal and painful stimuli but not awake or alert. Overnight during attempt to wean off sedation, patient became agitated with increased unpurposeful movement and attempt was discontinued. Family still undecided on pursuing comfort care and terminal weaning. Patient on ventilator settings tidal volume 450, assist-control rate of 22, FiO2 60, PEEP of 12. ABG still marginal at pH 7.55, CO2 30, O2 89, bicarb 26 at FiO2 of 60. Patient still on multiple drips particularly vasopressin at 0.02 units/min, dobutamine 5 mcg/kg/min, Levophed 0.3 mcg/kg/min, amiodarone 0.5 mg/min, and Lasix 10 mg/h. Propofol now at 25 mcg/kg/min. Still on Zosyn IVPB. Labs reviewed today show WBC 14.2, hemoglobin 13.6, platelets 69 , sodium 138, potassium 3.5, bicarb, 27, BUN 136, Creatinine 4.20 and glucose 131 Objective - Vital Signs Vital signs: Vital Signs Temp 97.8 F 08/01/24 08:00 Pulse 113 H 08/01/24 10:00 Resp 22 08/01/24 10:00 BP 98/87 08/01/24 04:00 Pulse Ox 98 08/01/24 10:00 FiO2 60 08/01/24 09:44 Intake & Output 07/31/24 08/01/24 08/01/24 18:59 06:59 18:59 Intake Total 914.708 0848.022 69 Output Total 550 1270 440 Balance 378.233 -74.978 -371 Weight 118.388 kg Intake: IV 161 269 69 0.9 NACL 125 130 60 Piperacillin-Tazobactam 3 100 .375 gm In Sodium Chloride 0.9% 100 ml @ 25 mls/hr IVPB Q12HR [facility] Rx #:[id number] arterial line 36 39 9 Intake, IV Titration 657.233 916.022 Amount DOBUTamine DRIP 500 mg In 250 250 Dextrose/Water 1 250ml. bag @ 5 MCG/KG/MIN 16.44 mls/hr IV .Q14H63B [facility] Rx #:[id number] Furosemide 100 mg In 100 164.500 Sodium Chloride 0.9% 90 ml @ 10 MG/HR 10 mls/hr IV .Q10H [facility] Rx#: [id number] Norepinephrine 32 mg In 244.296 226.828 Sodium Chloride 0.9% 218 ml @ 0.03 MCG/KG/MIN 1. 541 mls/hr IV .Q24H [facility] Rx#:[id number] Vasopressin 20 unit In 51.000 75.506 Sodium Chloride 0.9% 50 ml @ 0.03 UNITS/MIN 4.59 mls/hr IV .Q11H7M [facility] Rx# :[id number] propofoL 1,000 mg In 11.937 199.188 Empty Bag 1 bag @ 15 MCG/ KG/MIN 9.864 mls/hr IV . Q10H9M [facility] Rx#:[id number] Tube Feeding 50 10 Other 60 Output: Urine 550 1270 440 Other: Voiding Method Indwelling Catheter Indwelling Catheter Indwelling Catheter ABP, PAP, CO, CI - Last Documented Arterial Blood Pressure 103/74 - Exam General: 69-year-old white male nontoxic, sedated, on mechanical ventilator Head: Atraumatic, normocephalic EENT: Dry mucous membranes positive scleral icterus. No neck masses no JVD Pulmonary: Diminished breath sound bilaterally no crackles rhonchi or wheezes HEART EXAMINATION: irregular irregular rhythm, 2/6 systolic murmur throughout the precordium ABDOMEN: Positive ascites no change from yesterday, soft, nontender. Bowel sounds are heard. No organomegaly noted. EXTREMITIES: 3+ bilateral lower extremity pitting edema with diminished distal pulses bilaterally. NEUROLOGIC EXAMINATION: responds to verbal painful stimuli, no purposeful movement Psychiatric: Could not assess - Labs CBC & Chem 7: 08/01/24 10:00 08/01/24 10:00 Labs: Abnormal Lab Results - Last 24 Hours (Table) 07/31/24 07/31/24 07/31/24 Range/Units 11:47 18:06 23:55 ABG pH (7.35-7.45) ABG pCO2 (35-45) mmHg ABG HCO3 (21-25) mmol/L ABG Total CO2 (19-24) mmol/L ABG O2 Saturation (94-97) % POC Glucose (mg/dL) 131 H 135 H 136 H (70-110) mg/dL 08/01/24 08/01/24 Range/Units 05:18 05:23 ABG pH 7.55 H (7.35-7.45) ABG pCO2 30 L (35-45) mmHg ABG HCO3 26 H (21-25) mmol/L ABG Total CO2 27 H (19-24) mmol/L ABG O2 Saturation 98.0 H (94-97) % POC Glucose (mg/dL) 136 H (70-110) mg/dL Microbiology - Last 24 Hours (Table) 07/30/24 23:57 Blood Culture - Preliminary Blood Assessment and Plan Assessment: Impression: Acute hypoxic respiratory failure secondary to volume overload from acute systolic congestive heart failure Hypotension, cardiogenic in nature. On empiric antibiotics Acute metabolic encephalopathy Acute rhabdomyolysis Acute kidney injury secondary to rhabdomyolysis, suspect cardiorenal/cute tubular necrosis Acute systolic congestive heart failure with LV dysfunction (EF 15-20% on echo) Atrial fibrillation with RVR Coagulopathy with elevated INR secondary to liver disease Electrolytes imbalance Elevated liver enzymes History of alcoholism/alcohol abuse History of prostate cancer Recommendation: Family still in discussion regarding considering comfort care measures and terminal weaning. Continue ventilation support. Decrease FI O2 to 50% Continue hemodynamic support, on dobutamine, levophed and vasopressin Continue to attempt to wean off sedation to assess mental status. Propofol 15 mcg/kg/min IV Continue empiric Zosyn IVPB every 6 hours Continue Lasix 10mg/hr IV Per Cardiology, Amiodarone 0.5mg/min IV for AFib Vital AF via OGT Follow up final blood culture results CBC and BMP at AM Close monitoring of his renal profile and urine output Avoid nephrotoxic agents Prognosis: Patient is critically ill and still requires mechanical ventilation and hemodynamic support. Prognosis is extremely poor and guarded Critical care time is over 30 minutes not including time spent on procedures Time with Patient: Greater than 30
--- NOTE | 2024-08-01 12:01 | P.PN ---
Subjective Progress Note Date: 07/30/24 Patient is a 69-year-old male with a past medical history of prostate cancer and alcohol abuse was brought to ER by EMS after he was found unresponsive on the floor when her neighbor did a wellness check. Patient could not provide any history. Apparently his neighbor last saw him moved a week prior. Patient's sister is at bedside and is able to provide his past medical history. She tried to reach him few times but he usually does not respond immediately due to prior histories of depression and alcohol abuse. Patient was not febrile on admission. Blood pressure went down to 76/59 and heart rate 151 and respiration 20 and patient is requiring 5 L oxygen via nasal cannula. Chest x-ray showed cardiomegaly, pulmonary vascular congestion and bilateral pleural effusions. Correlate with BNP for CHF. CT head and cervical spine showed no acute intracranial process. Nonspecific white matter changes likely secondary to chronic small vessel ischemic disease. No evidence of cervical spine fracture. Mild to moderate multilevel degenerative disc disease. Evidence of CHF with anasarca, pulmonary vascular congestion and bilateral pleural effusions. CT abdomen and pelvis CT showed cardiomegaly, anasarca and bilateral pleural effusions and pulmonary vascular congestion correlated with CHF. Hepatic steatosis correlate with elevated liver labs secondary to heart failure. Chest x-ray this morning showed hazy density throughout the right mid and lower lung has increased. Suspect some increasing pleural effusion and density seen with adjacent atelectasis/consolidation. Likely sequela of mild CHF. 2D echocardiogram showed four-chamber enlargement with specifically severe left ventricular dilatation global decrease in contractility estimate ejection fraction of 15 to 20%. There is also severe mitral and tricuspid regurgitation but right sided pressures are not elevated which may reflect decreasing right ventricular dysfunction as well. Small pericardial effusion and there is pleural effusion. EKG showed atrial fibrillation with rapid ventricular response with aberrant conduction. Laboratory data showed WBC 9.6 hemoglobin 13.1 and platelets 119 INR greater than 10 BUN 104 and creatinine 4.62, sodium 139 potassium 3.8 chloride 93 bicarb is 25 and blood sugar 103 lactic acid 8.7 Total bili 9.8 AST 353 ALT 162 and alk phos 92 CK2 243 and troponin 0.759 and proBNP 34,000 and TSH 4.22 urinalysis is negative for infection UDS negative and alcohol level is less than 10 07/29/2024 Patient is currently in MICU. Intubated on mechanical ventilator. Patient remains on pressor support. On dobutamine and norepinephrine. Chest x-ray today showed stable portable chest. Patient has been afebrile. Laboratory data showed WBC 8.6 hemoglobin 11.3 platelets 103 Sodium 137 potassium 3.5 chloride 101 bicarb is 24 BUN 122 and creatinine 4.36 and blood sugar 202 AST 355 ALT 176 alk phos 83 albumin 3.0 Continued on antibiotics Zosyn. 07/30/2024 Patient is in the MICU. Currently on mechanical ventilator. Patient is still hypotensive. Patient is on amiodarone and also pressor support with vasopressin, norepinephrine and dobutamine. Patient is also on propofol drip. Continued on antibiotics of Zosyn. Chest x-ray today showed evidence of pulmonary edema and bilateral pleural effusions. Patient is being continued on Lasix drip as well. Laboratory data showed WBC 12.7 hemoglobin 12.8 and platelets 92. Sodium 138 potassium 3.2 chloride 102 bicarb is 25 BUN 127 creatinine 4.54. Blood sugar is 195. A1c 6.1. Nephrology and critical care team is on board. Current medications reviewed. Objective - Vital Signs Vital signs: Vital Signs Temp 97.6 F 07/30/24 08:15 Pulse 121 H 07/30/24 10:15 Resp 22 07/30/24 10:15 BP 89/75 07/30/24 10:15 Pulse Ox 92 L 07/30/24 10:15 FiO2 70 07/30/24 09:56 Intake & Output 07/29/24 07/30/24 07/30/24 18:59 06:59 18:59 Intake Total 4100.607 4139.146 422 Output Total 385 380 165 Balance 729.908 7271.146 257 Weight 112.3 kg 114.8 kg Intake: IV 298 216 72 0.9 NACL 165 180 60 Piperacillin-Tazobactam 3 100 .375 gm In Sodium Chloride 0.9% 100 ml @ 25 mls/hr IVPB Q12HR [facility] Rx #:[id number] arterial line 33 36 12 Intake, IV Titration 665.241 4397.146 200 Amount Amiodarone 450 mg In 246.394 Dextrose 5% in Water 250 ml @ 0.5 MG/MIN 16.667 mls/hr IV .Q15H [facility] Rx#: [id number] DOBUTamine DRIP 500 mg In 244.956 247.696 Dextrose/Water 1 250ml. bag @ 5 MCG/KG/MIN 16.44 mls/hr IV .[id number] [facility] Rx #:[id number] Furosemide 100 mg In 100 83 100 Sodium Chloride 0.9% 90 ml @ 10 MG/HR 10 mls/hr IV .Q10H [facility] Rx#: [id number] Furosemide 100 mg In 20 Sodium Chloride 0.9% 90 ml @ 10 MG/HR 10 mls/hr IV .Q10H [facility] Rx#: [id number] Norepinephrine 32 mg In 149.854 300.355 Sodium Chloride 0.9% 218 ml @ 0.03 MCG/KG/MIN 1. 541 mls/hr IV .Q24H [facility] Rx#:[id number] Vasopressin 20 unit In 46.895 36.643 Sodium Chloride 0.9% 50 ml @ 0.03 UNITS/MIN 4.59 mls/hr IV .Q11H7M [facility] Rx# :[id number] propofoL 1,000 mg In 145.758 169.058 100 Empty Bag 1 bag @ 15 MCG/ KG/MIN 9.864 mls/hr IV . Q10H9M [facility] Rx#:[id number] Oral 150 Tube Feeding 80 250 Other 30 90 Output: Urine 385 380 165 Other: Voiding Method Indwelling Catheter Indwelling Catheter Indwelling Catheter ABP, PAP, CO, CI - Last Documented Arterial Blood Pressure 81/61 - Exam PHYSICAL EXAMINATION: Patient is intubated and on mechanical ventilator. HEENT: Normocephalic. Neck is supple. Pupils reactive. Nostrils clear. Oral cavity is moist. Neck reveals no JVD, carotid bruits, or thyromegaly. CHEST EXAMINATION: Trachea is central. ET tube in place. Symmetrical expansion. Bibasilar diminished sounds otherwise lung urrutia clear to auscultation and percussion. CARDIAC: Normal S1, S2 with no gallops. No murmurs ABDOMEN: Soft. Bowel sounds normal. No organomegaly. No abdominal bruits. Extremities: reveal no edema. No clubbing or cyanosis Neurologically patient is intubated.. No gross focal deficits noted Skin: No rash or skin lesions. Psychiatric: Could not be assessed at this time. Musculoskeletal: No joint swelling or deformity. - Labs CBC & Chem 7: 08/01/24 10:00 08/01/24 10:00 Labs: Abnormal Lab Results - Last 24 Hours (Table) 07/29/24 07/29/24 07/29/24 Range/Units 11:53 17:25 17:55 WBC (3.8-10.6) k/uL RBC (4.30-5.90) m/uL Hgb (13.0-17.5) gm/dL Hct (39.0-53.0) % Plt Count (150-450) k/uL Neutrophils # (1.3-7.7) k/uL Lymphocytes # (1.0-4.8) k/uL PT (10.0-12.5) sec INR (<1.2) ABG pH (7.35-7.45) ABG pCO2 (35-45) mmHg ABG pO2 (83-108) mmHg ABG HCO3 (21-25) mmol/L ABG Total CO2 (19-24) mmol/L ABG O2 Saturation (94-97) % Potassium (3.5-5.1) mmol/L BUN (9-20) mg/dL Creatinine (0.66-1.25) mg/dL Glucose (74-99) mg/dL POC Glucose (mg/dL) 210 H 204 H 211 H (70-110) mg/dL 07/29/24 07/30/24 07/30/24 Range/Units 23:19 04:23 04:23 WBC 12.7 H (3.8-10.6) k/uL RBC 4.16 L (4.30-5.90) m/uL Hgb 12.8 L (13.0-17.5) gm/dL Hct 38.2 L (39.0-53.0) % Plt Count 92 L (150-450) k/uL Neutrophils # 11.0 H (1.3-7.7) k/uL Lymphocytes # 0.8 L (1.0-4.8) k/uL PT (10.0-12.5) sec INR (<1.2) ABG pH (7.35-7.45) ABG pCO2 (35-45) mmHg ABG pO2 (83-108) mmHg ABG HCO3 (21-25) mmol/L ABG Total CO2 (19-24) mmol/L ABG O2 Saturation (94-97) % Potassium 3.2 L (3.5-5.1) mmol/L BUN 127 H* (9-20) mg/dL Creatinine 4.54 H (0.66-1.25) mg/dL Glucose 195 H (74-99) mg/dL POC Glucose (mg/dL) 208 H (70-110) mg/dL 07/30/24 07/30/24 07/30/24 Range/Units 05:21 06:03 09:49 WBC (3.8-10.6) k/uL RBC (4.30-5.90) m/uL Hgb (13.0-17.5) gm/dL Hct (39.0-53.0) % Plt Count (150-450) k/uL Neutrophils # (1.3-7.7) k/uL Lymphocytes # (1.0-4.8) k/uL PT 19.6 H (10.0-12.5) sec INR 1.9 H (<1.2) ABG pH 7.53 H (7.35-7.45) ABG pCO2 32 L (35-45) mmHg ABG pO2 62 L (83-108) mmHg ABG HCO3 27 H (21-25) mmol/L ABG Total CO2 28 H (19-24) mmol/L ABG O2 Saturation 92.0 L (94-97) % Potassium (3.5-5.1) mmol/L BUN (9-20) mg/dL Creatinine (0.66-1.25) mg/dL Glucose (74-99) mg/dL POC Glucose (mg/dL) 207 H (70-110) mg/dL Microbiology - Last 24 Hours (Table) 07/28/24 15:35 Gram Stain - Final Sputum Sputum Culture - Final Assessment and Plan Assessment: Acute metabolic encephalopathy. Patient was found with facedown at home. New onset atrial fibrillation with rapid ventricular response Acute hypoxic respiratory failure secondary to CHF and fluid overload/anasarca. Acute CHF with systolic dysfunction ejection fraction 15 to 20% alcohol use disorder Elevated liver enzymes and hyperbilirubinemia Coagulopathy likely secondary to alcoholic liver disease with INR greater than 10 on admission Acute rhabdomyolysis Elevated troponin level likely secondary to A-fib with RVR and rhabdomyolysis Acute kidney injury secondary to ATN and rhabdomyolysis Lactic acidosis History of prostate cancer currently not on any medications GI prophylaxis Plan: Patient is currently in the MICU. Patient is currently intubated on mechanical ventilator. Requiring pressor support with Levophed, vasopressin and dobutamine. Cardizem drip for heart rate control. Continued on empiric antibiotics with Zosyn. On Lasix drip. Chest x-ray still showing pulmonary edema and effusion. Continue to monitor for alcohol withdrawal symptoms. Follow-up liver enzymes and patient was given vitamin K in the ER. Follow-up INR level trending down. Follow-up electrolytes. Nephrology and critical care team and cardiology is on board. Prognosis is guarded at this time. Discussed with patient and sister at bedside in detail. Time with Patient: Greater than 30
--- NOTE | 2024-08-01 12:04 | P.PN ---
Subjective Progress Note Date: 07/31/24 Patient is a 69-year-old male with a past medical history of prostate cancer and alcohol abuse was brought to ER by EMS after he was found unresponsive on the floor when her neighbor did a wellness check. Patient could not provide any history. Apparently his neighbor last saw him moved a week prior. Patient's sister is at bedside and is able to provide his past medical history. She tried to reach him few times but he usually does not respond immediately due to prior histories of depression and alcohol abuse. Patient was not febrile on admission. Blood pressure went down to 76/59 and heart rate 151 and respiration 20 and patient is requiring 5 L oxygen via nasal cannula. Chest x-ray showed cardiomegaly, pulmonary vascular congestion and bilateral pleural effusions. Correlate with BNP for CHF. CT head and cervical spine showed no acute intracranial process. Nonspecific white matter changes likely secondary to chronic small vessel ischemic disease. No evidence of cervical spine fracture. Mild to moderate multilevel degenerative disc disease. Evidence of CHF with anasarca, pulmonary vascular congestion and bilateral pleural effusions. CT abdomen and pelvis CT showed cardiomegaly, anasarca and bilateral pleural effusions and pulmonary vascular congestion correlated with CHF. Hepatic steatosis correlate with elevated liver labs secondary to heart failure. Chest x-ray this morning showed hazy density throughout the right mid and lower lung has increased. Suspect some increasing pleural effusion and density seen with adjacent atelectasis/consolidation. Likely sequela of mild CHF. 2D echocardiogram showed four-chamber enlargement with specifically severe left ventricular dilatation global decrease in contractility estimate ejection fraction of 15 to 20%. There is also severe mitral and tricuspid regurgitation but right sided pressures are not elevated which may reflect decreasing right ventricular dysfunction as well. Small pericardial effusion and there is pleural effusion. EKG showed atrial fibrillation with rapid ventricular response with aberrant conduction. Laboratory data showed WBC 9.6 hemoglobin 13.1 and platelets 119 INR greater than 10 BUN 104 and creatinine 4.62, sodium 139 potassium 3.8 chloride 93 bicarb is 25 and blood sugar 103 lactic acid 8.7 Total bili 9.8 AST 353 ALT 162 and alk phos 92 CK2 243 and troponin 0.759 and proBNP 34,000 and TSH 4.22 urinalysis is negative for infection UDS negative and alcohol level is less than 10 07/29/2024 Patient is currently in MICU. Intubated on mechanical ventilator. Patient remains on pressor support. On dobutamine and norepinephrine. Chest x-ray today showed stable portable chest. Patient has been afebrile. Laboratory data showed WBC 8.6 hemoglobin 11.3 platelets 103 Sodium 137 potassium 3.5 chloride 101 bicarb is 24 BUN 122 and creatinine 4.36 and blood sugar 202 AST 355 ALT 176 alk phos 83 albumin 3.0 Continued on antibiotics Zosyn. 07/30/2024 Patient is in the MICU. Currently on mechanical ventilator. Patient is still hypotensive. Patient is on amiodarone and also pressor support with vasopressin, norepinephrine and dobutamine. Patient is also on propofol drip. Continued on antibiotics of Zosyn. Chest x-ray today showed evidence of pulmonary edema and bilateral pleural effusions. Patient is being continued on Lasix drip as well. Laboratory data showed WBC 12.7 hemoglobin 12.8 and platelets 92. Sodium 138 potassium 3.2 chloride 102 bicarb is 25 BUN 127 creatinine 4.54. Blood sugar is 195. A1c 6.1. Nephrology and critical care team is on board. 07/31/2024 Patient is in the MICU. Currently on mechanical ventilator. Weaning sedation.. Patient is agitated sometimes. Chest x-ray showed no improvement from yesterday. Abdominal ultrasound showed minimal ascites. Patient still requiring pressor support with vasopressin, norepinephrine and dobutamine. Also on IV Lasix drip. Laboratory data showed WBC 14.1 hemoglobin 13.4 and platelets 86. Sodium 133 potassium 3.5 chloride 99 bicarb is 25 BUN 134 and creatinine 4.51. Nephrology recommends hemodialysis. Critical care team on board. Current medications reviewed. Objective - Vital Signs Vital signs: Vital Signs Temp 98.5 F 07/31/24 20:00 Pulse 115 H 07/31/24 21:00 Resp 22 07/31/24 21:00 BP 92/81 07/31/24 21:00 Pulse Ox 96 07/31/24 21:00 FiO2 60 07/31/24 20:31 Intake & Output 07/31/24 07/31/24 08/01/24 06:59 18:59 06:59 Intake Total 1060.478 928.233 165.335 Output Total 330 550 225 Balance 730.478 378.233 -59.665 Weight 115.4 kg Intake: IV 298 161 39 0.9 NACL 165 125 30 Piperacillin-Tazobactam 3 100 .375 gm In Sodium Chloride 0.9% 100 ml @ 25 mls/hr IVPB Q12HR HERB Rx #:[id number] arterial line 33 36 9 Intake, IV Titration 520.478 657.233 116.335 Amount Amiodarone 450 mg In 250 Dextrose 5% in Water 250 ml @ 0.5 MG/MIN 16.667 mls/hr IV .Q15H HERB Rx#: [id number] DOBUTamine DRIP 500 mg In 250 Dextrose/Water 1 250ml. bag @ 5 MCG/KG/MIN 16.44 mls/hr IV .[id number] HERB Rx #:[id number] Furosemide 100 mg In 88.5 100 81.833 Sodium Chloride 0.9% 90 ml @ 10 MG/HR 10 mls/hr IV .Q10H HERB Rx#: [id number] Norepinephrine 32 mg In 244.296 Sodium Chloride 0.9% 218 ml @ 0.03 MCG/KG/MIN 1. 541 mls/hr IV .Q24H HERB Rx#:[id number] Vasopressin 20 unit In 61.2 51.000 34.502 Sodium Chloride 0.9% 50 ml @ 0.03 UNITS/MIN 4.59 mls/hr IV .Q11H7M HERB Rx# :[id number] propofoL 1,000 mg In 120.778 11.937 Empty Bag 1 bag @ 15 MCG/ KG/MIN 9.864 mls/hr IV . Q10H9M HERB Rx#:[id number] Tube Feeding 152 50 10 Other 90 60 Output: Urine 330 550 225 Other: Voiding Method Indwelling Catheter Indwelling Catheter Indwelling Catheter ABP, PAP, CO, CI - Last Documented Arterial Blood Pressure 91/64 - Exam PHYSICAL EXAMINATION: Patient is intubated and on mechanical ventilator. HEENT: Normocephalic. Neck is supple. Pupils reactive. Nostrils clear. Oral cavity is moist. Neck reveals no JVD, carotid bruits, or thyromegaly. CHEST EXAMINATION: Trachea is central. ET tube in place. Symmetrical expansion. Bibasilar diminished sounds otherwise lung urrutia clear to auscult ation and percussion. CARDIAC: Normal S1, S2 with no gallops. No murmurs ABDOMEN: Soft. Bowel sounds normal. No organomegaly. No abdominal bruits. Extremities: reveal no edema. No clubbing or cyanosis Neurologically patient is intubated.. No gross focal deficits noted Skin: No rash or skin lesions. Psychiatric: Could not be assessed at this time. Musculoskeletal: No joint swelling or deformity. - Labs CBC & Chem 7: 08/01/24 10:00 08/01/24 10:00 Labs: Abnormal Lab Results - Last 24 Hours (Table) 07/30/24 07/31/24 07/31/24 Range/Units 23:59 05:18 05:18 WBC 14.1 H (3.8-10.6) k/uL Plt Count 86 L (150-450) k/uL Neutrophils # 12.0 H (1.3-7.7) k/uL Lymphocytes # 0.9 L (1.0-4.8) k/uL ABG pH (7.35-7.45) ABG pCO2 (35-45) mmHg ABG HCO3 (21-25) mmol/L ABG Total CO2 (19-24) mmol/L ABG O2 Saturation (94-97) % Sodium 133 L (137-145) mmol/L BUN 134 H* (9-20) mg/dL Creatinine 4.51 H (0.66-1.25) mg/dL Glucose 144 H (74-99) mg/dL POC Glucose (mg/dL) 168 H (70-110) mg/dL 07/31/24 07/31/24 07/31/24 Range/Units 05:20 06:07 11:47 WBC (3.8-10.6) k/uL Plt Count (150-450) k/uL Neutrophils # (1.3-7.7) k/uL Lymphocytes # (1.0-4.8) k/uL ABG pH 7.53 H (7.35-7.45) ABG pCO2 31 L (35-45) mmHg ABG HCO3 26 H (21-25) mmol/L ABG Total CO2 27 H (19-24) mmol/L ABG O2 Saturation 97.1 H (94-97) % Sodium (137-145) mmol/L BUN (9-20) mg/dL Creatinine (0.66-1.25) mg/dL Glucose (74-99) mg/dL POC Glucose (mg/dL) 127 H 131 H (70-110) mg/dL 10/24/24 Range/Units 18:06 WBC (3.8-10.6) k/uL Plt Count (150-450) k/uL Neutrophils # (1.3-7.7) k/uL Lymphocytes # (1.0-4.8) k/uL ABG pH (7.35-7.45) ABG pCO2 (35-45) mmHg ABG HCO3 (21-25) mmol/L ABG Total CO2 (19-24) mmol/L ABG O2 Saturation (94-97) % Sodium (137-145) mmol/L BUN (9-20) mg/dL Creatinine (0.66-1.25) mg/dL Glucose (74-99) mg/dL POC Glucose (mg/dL) 135 H (70-110) mg/dL Assessment and Plan Assessment: Acute metabolic encephalopathy. Patient was found with facedown at home. New onset atrial fibrillation with rapid ventricular response Acute hypoxic respiratory failure secondary to CHF and fluid overload/anasarca. Acute CHF with systolic dysfunction ejection fraction 15 to 20% alcohol use disorder Elevated liver enzymes and hyperbilirubinemia Coagulopathy likely secondary to alcoholic liver disease with INR greater than 10 on admission Acute rhabdomyolysis Elevated troponin level likely secondary to A-fib with RVR and rhabdomyolysis Acute kidney injury secondary to ATN and rhabdomyolysis Lactic acidosis History of prostate cancer currently not on any medications GI prophylaxis Plan: Patient is currently in the MICU. Patient is currently intubated on mechanical ventilator. Requiring pressor support with Levophed, vasopressin and dobutamine. Sedation is being weaned off. Continue with amiodarone drip. Continued on empiric antibiotics with Zosyn. On Lasix drip. Chest x-ray still showing pulmonary edema and effusion. Contin ue to monitor for alcohol withdrawal symptoms. Follow-up liver enzymes and patient was given vitamin K in the ER. Follow-up INR level trending down. Follow-up electrolytes. Nephrology and critical care team and cardiology is on board. Prognosis is poor at this time. Discussed with patient and sister at bedside in detail. Family is considering comfort care. Time with Patient: Greater than 30
[2024-08-01 12:27] LABS: Glucose,Whole Blood 133 mg/dL (70-110)
[2024-08-01] MEDS ORDERED: MORPHINE SULFATE 2 MG/ML SYRINGE IV PRN (13:59)
[2024-08-01] MEDS: SCOPOLAMINE 1 MG/72 HR PATCH TRANSDERM SCH (14:17)
[2024-08-01] MEDS: MORPHINE SULFATE (100 MG/2 ML) 100 MG in SODIUM CHLORIDE 0.9% 100 ML IV SCH (14:35)
[2024-08-01] MEDS: MORPHINE SULFATE 4 MG/ML SYRINGE IV PRN (15:55)
[2024-08-01] MEDS: ATROPINE OPHTH SOLN 1% 5ML BTL SUBLINGUAL PRN (16:11)
[2024-08-01 16:44] VITALS: PULSE 114
--- NOTE | 2024-08-01 21:29 | P.PN ---
Subjective Progress Note Date: 08/01/24 Patient is a 69-year-old male with a past medical history of prostate cancer and alcohol abuse was brought to ER by EMS after he was found unresponsive on the floor when her neighbor did a wellness check. Patient could not provide any history. Apparently his neighbor last saw him moved a week prior. Patient's sister is at bedside and is able to provide his past medical history. She tried to reach him few times but he usually does not respond immediately due to prior histories of depression and alcohol abuse. Patient was not febrile on admission. Blood pressure went down to 76/59 and heart rate 151 and respiration 20 and patient is requiring 5 L oxygen via nasal cannula. Chest x-ray showed cardiomegaly, pulmonary vascular congestion and bilateral pleural effusions. Correlate with BNP for CHF. CT head and cervical spine showed no acute intracranial process. Nonspecific white matter changes likely secondary to chronic small vessel ischemic disease. No evidence of cervical spine fracture. Mild to moderate multilevel degenerative disc disease. Evidence of CHF with anasarca, pulmonary vascular congestion and bilateral pleural effusions. CT abdomen and pelvis CT showed cardiomegaly, anasarca and bilateral pleural effusions and pulmonary vascular congestion correlated with CHF. Hepatic steatosis correlate with elevated liver labs secondary to heart failure. Chest x-ray this morning showed hazy density throughout the right mid and lower lung has increased. Suspect some increasing pleural effusion and density seen with adjacent atelectasis/consolidation. Likely sequela of mild CHF. 2D echocardiogram showed four-chamber enlargement with specifically severe left ventricular dilatation global decrease in contractility estimate ejection fraction of 15 to 20%. There is also severe mitral and tricuspid regurgitation but right sided pressures are not elevated which may reflect decreasing right ventricular dysfunction as well. Small pericardial effusion and there is pleural effusion. EKG showed atrial fibrillation with rapid ventricular response with aberrant conduction. Laboratory data showed WBC 9.6 hemoglobin 13.1 and platelets 119 INR greater than 10 BUN 104 and creatinine 4.62, sodium 139 potassium 3.8 chloride 93 bicarb is 25 and blood sugar 103 lactic acid 8.7 Total bili 9.8 AST 353 ALT 162 and alk phos 92 CK2 243 and troponin 0.759 and proBNP 34,000 and TSH 4.22 urinalysis is negative for infection UDS negative and alcohol level is less than 10 07/29/2024 Patient is currently in MICU. Intubated on mechanical ventilator. Patient remains on pressor support. On dobutamine and norepinephrine. Chest x-ray today showed stable portable chest. Patient has been afebrile. Laboratory data showed WBC 8.6 hemoglobin 11.3 platelets 103 Sodium 137 potassium 3.5 chloride 101 bicarb is 24 BUN 122 and creatinine 4.36 and blood sugar 202 AST 355 ALT 176 alk phos 83 albumin 3.0 Continued on antibiotics Zosyn. 07/30/2024 Patient is in the MICU. Currently on mechanical ventilator. Patient is still hypotensive. Patient is on amiodarone and also pressor support with vasopressin, norepinephrine and dobutamine. Patient is also on propofol drip. Continued on antibiotics of Zosyn. Chest x-ray today showed evidence of pulmonary edema and bilateral pleural effusions. Patient is being continued on Lasix drip as well. Laboratory data showed WBC 12.7 hemoglobin 12.8 and platelets 92. Sodium 138 potassium 3.2 chloride 102 bicarb is 25 BUN 127 creatinine 4.54. Blood sugar is 195. A1c 6.1. Nephrology and critical care team is on board. 07/31/2024 Patient is in the MICU. Currently on mechanical ventilator. Weaning sedation.. Patient is agitated sometimes. Chest x-ray showed no improvement from yesterday. Abdominal ultrasound showed minimal ascites. Patient still requiring pressor support with vasopressin, norepinephrine and dobutamine. Also on IV Lasix drip. Laboratory data showed WBC 14.1 hemoglobin 13.4 and platelets 86. Sodium 133 potassium 3.5 chloride 99 bicarb is 25 BUN 134 and creatinine 4.51. Nephrology recommends hemodialysis. Critical care team on board. 08/01/2025 Patient is MICU. Intubated on mechanical ventilator. Patient is otherwise agitated and increased involuntary movements. Sedation was reinitiated. Patient is still requiring pressor support with vasopressin, dobutamine and Levophed. Also on amiodarone drip and Lasix drip. Continued on antibiotics in the form of Zosyn., Family has decided to go with comfort measures. Laboratory data showed WBC 14.2 hemoglobin 13.6 and platelets 69 sodium 138 potassium 3.5 chloride 100 BUN 136 and creatinine 4.2 and blood sugar 131. Calcium 8.5. Critical care team, nephrology is on board. Current medications reviewed. Objective - Vital Signs Vital signs: Vital Signs Temp 97.8 F 08/01/24 08:00 Pulse 113 H 08/01/24 10:00 Resp 22 08/01/24 10:00 BP 98/87 08/01/24 04:00 Pulse Ox 98 08/01/24 10:00 FiO2 70 08/01/24 11:42 Intake & Output 07/31/24 08/01/24 08/01/24 18:59 06:59 18:59 Intake Total 528.970 6771.022 115 Output Total 550 1270 775 Balance 378.233 -74.978 -660 Weight 118.388 kg 118.388 kg Intake: IV 161 269 115 0.9 NACL 125 130 100 Piperacillin-Tazobactam 3 100 .375 gm In Sodium Chloride 0.9% 100 ml @ 25 mls/hr IVPB Q12HR [facility] Rx #:[id number] arterial line 36 39 15 Intake, IV Titration 657.233 916.022 Amount DOBUTamine DRIP 500 mg In 250 250 Dextrose/Water 1 250ml. bag @ 5 MCG/KG/MIN 16.44 mls/hr IV .[id number] HER[facility] Rx #:[id number] Furosemide 100 mg In 100 164.500 Sodium Chloride 0.9% 90 ml @ 10 MG/HR 10 mls/hr IV .Q10H HER[facility] Rx#: [id number] Norepinephrine 32 mg In 244.296 226.828 Sodium Chloride 0.9% 218 ml @ 0.03 MCG/KG/MIN 1. 541 mls/hr IV .Q24H HER[facility] Rx#:[id number] Vasopressin 20 unit In 51.000 75.506 Sodium Chloride 0.9% 50 ml @ 0.03 UNITS/MIN 4.59 mls/hr IV .Q11H7M [facility] Rx# :[id number] propofoL 1,000 mg In 11.937 199.188 Empty Bag 1 bag @ 15 MCG/ KG/MIN 9.864 mls/hr IV . Q10H9M HER[facility] Rx#:[id number] Tube Feeding 50 10 Other 60 Output: Urine 550 1270 775 Other: Voiding Method Indwelling Catheter Indwelling Catheter Indwelling Catheter ABP, PAP, CO, CI - Last Documented Arterial Blood Pressure 103/74 - Exam PHYSICAL EXAMINATION: Patient is intubated and on mechanical ventilator. Has occasional involuntary movements. HEENT: Normocephalic. Neck is supple. Pupils reactive. Nostrils clear. Oral cavity is moist. Neck reveals no JVD, carotid bruits, or thyromegaly. CHEST EXAMINATION: Trachea is central. ET tube in place. Symmetrical expansion. Bibasilar diminished sounds otherwise lung urrutia clear to auscultation and percussion. CARDIAC: Normal S1, S2 with no gallops. No murmurs ABDOMEN: Soft. Bowel sounds normal. No organomegaly. No abdominal bruits. Extremities: reveal no edema. No clubbing or cyanosis Neurologically patient is intubated.. No gross focal deficits noted Skin: No rash or skin lesions. Psychiatric: Could not be assessed at this time. Musculoskeletal: No joint swelling or deformity. - Labs CBC & Chem 7: 08/01/24 10:00 08/01/24 10:00 Labs: Abnormal Lab Results - Last 24 Hours (Table) 07/31/24 07/31/24 08/01/24 Range/Units 18:06 23:55 05:18 WBC (3.8-10.6) k/uL Plt Count (150-450) k/uL Neutrophils # (1.3-7.7) k/uL ABG pH 7.55 H (7.35-7.45) ABG pCO2 30 L (35-45) mmHg ABG HCO3 26 H (21-25) mmol/L ABG Total CO2 27 H (19-24) mmol/L ABG O2 Saturation 98.0 H (94-97) % BUN (9-20) mg/dL Creatinine (0.66-1.25) mg/dL Glucose (74-99) mg/dL POC Glucose (mg/dL) 135 H 136 H (70-110) mg/dL 08/01/24 08/01/24 08/01/24 Range/Units 05:23 10:00 10:00 WBC 14.2 H (3.8-10.6) k/uL Plt Count 69 L (150-450) k/uL Neutrophils # 11.7 H (1.3-7.7) k/uL ABG pH (7.35-7.45) ABG pCO2 (35-45) mmHg ABG HCO3 (21-25) mmol/L ABG Total CO2 (19-24) mmol/L ABG O2 Saturation (94-97) % BUN 136 H* (9-20) mg/dL Creatinine 4.20 H (0.66-1.25) mg/dL Glucose 131 H (74-99) mg/dL POC Glucose (mg/dL) 136 H (70-110) mg/dL Microbiology - Last 24 Hours (Table) 07/30/24 23:57 Blood Culture - Preliminary Blood Assessment and Plan Assessment: Acute metabolic encephalopathy. Patient is also agitated and having involuntary movements. Patient was found with facedown at home. New onset atrial fibrillation with rapid ventricular response Acute hypoxic respiratory failure secondary to CHF and fluid overload/anasarca. Acute CHF with systolic dysfunction ejection fraction 15 to 20% alcohol use disorder Elevated liver enzymes and hyperbilirubinemia Coagulopathy likely secondary to alcoholic liver disease with INR greater than 10 on admission Acute rhabdomyolysis Elevated troponin level likely secondary to A-fib with RVR and rhabdomyolysis Acute kidney injury secondary to ATN and rhabdomyolysis Lactic acidosis History of prostate cancer currently not on any medications GI prophylaxis Plan: Patient is currently in the MICU. Patient is currently intubated on mechanical ventilator. Requiring pressor support with Levophed, vasopressin and dobutamine. Started back on low sedation. Continue with amiodarone drip. Continued on empiric antibiotics with Zosyn. On Lasix drip. Chest x-ray still showing pulmonary edema and effusion. Continue to monitor for alcohol withdrawal symptoms. Follow-up liver enzymes and patient was given vitamin K in the ER. Follow-up INR level trending down. Follow-up electrolytes. Nephrology and critical care team and cardiology is on board. Prognosis is poor at this time. Discussed with his family at bedside in detail. Family is considering comfort care. Time with Patient: Greater than 30
[2024-08-02 02:09] VITALS: BP 44/25; RESP 10
== END 2024-08-02 08:17 | disposition expired | DRG 291 ==
LOC: EC 13:59 → 2SICU 20:42
PROVIDERS: ADMIT Hospitalist; ATTEND Hospitalist
PROC: 30233L1 Transfusion of Nonautologous Fresh Plasma into Peripheral Vein, Percutaneous Approach (ICD-10-PCS; 2024-07-27)
PROC: 04HK33Z Insertion of Infusion Device into Right Femoral Artery, Percutaneous Approach (ICD-10-PCS; 2024-07-28)
PROC: 06HY33Z Insertion of Infusion Device into Lower Vein, Percutaneous Approach (ICD-10-PCS; 2024-07-28)
PROC: 3E033XZ Introduction of Vasopressor into Peripheral Vein, Percutaneous Approach (ICD-10-PCS; 2024-07-28)
PROC: 5A09357 Assistance with Respiratory Ventilation, Less than 24 Consecutive Hours, Continuous Positive Airway Pressure (ICD-10-PCS; 2024-07-28)
PROC: 5A1955Z Respiratory Ventilation, Greater than 96 Consecutive Hours (ICD-10-PCS; principal; 2024-07-28 15:30)
PROC: 0BH17EZ Insertion of Endotracheal Airway into Trachea, Via Natural or Artificial Opening (ICD-10-PCS; 2024-07-28 15:30)
DX: I50.23 Acute on chronic systolic (congestive) heart failure (principal); G93.41 Metabolic encephalopathy; J96.01 Acute respiratory failure with hypoxia; N17.0 Acute kidney failure with tubular necrosis; E87.20 Acidosis, unspecified; D68.4 Acquired coagulation factor deficiency; I42.9 Cardiomyopathy, unspecified; I31.39 Other pericardial effusion (noninflammatory); R18.8 Other ascites; Z66 Do not resuscitate; Z51.5 Encounter for palliative care; K70.40 Alcoholic hepatic failure without coma; D69.6 Thrombocytopenia, unspecified; T79.6XXA Traumatic ischemia of muscle, initial encounter; I08.1 Rheumatic disorders of both mitral and tricuspid valves; K76.0 Fatty (change of) liver, not elsewhere classified; I48.91 Unspecified atrial fibrillation; I95.89 Other hypotension; F10.20 Alcohol dependence, uncomplicated; Y90.0 Blood alcohol level of less than 20 mg/100 ml; W19.XXXA Unspecified fall, initial encounter; Y92.009 Unspecified place in unspecified non-institutional (private) residence as the place of occurrence of the external cause; Y99.8 Other external cause status; Z85.46 Personal history of malignant neoplasm of prostate; Z80.42 Family history of malignant neoplasm of prostate
CPT/HCPCS: 36410; 36415; 36430; 36600; 51702; 70450; 71045; 71046; 71250; 72125; 74176; 76604; 76705; 76937; 80048; 80053; 80306; 80320; 81001; 82140; 82375; 82550; 82803; 82805; 83036; 83605; 83880; 84132; 84443; 84484; 85025; 85610; 85730; 86850; 86900; 86901; 87040; 87070; 87205; 93005; 93306; 94002; 94003; 94660; 96361; 96365; 96366; 96367; 96375; 99291